=== PATIENT | female | born 1955 | race Caucasian/White ===

== ENCOUNTER 2020-04-25 09:00 | Observation (INO) | payer MEDICARE, OTHER, SELFPAY ==
[2020-04-25] VITALS (32 sets, daily range): BP systolic 126–181; BP diastolic 67–124; PULSE 60–150; RESP 8–24; TEMP 36.3–36.7; O2SAT 95–100; BMI 35.2
--- NOTE | 2020-04-25 | ECHO_ITS ---
Patient Info Name: Marcia Melgar Age: 64 years : 1955 Gender: Female Ht: 65 in Wt: 258 lbs BSA: 2.38 m2 BP: 144 / 108 mmHg Heart Rhythm: Atrial Fibrillation Technical Quality: Fair Exam Date: 04/25/2020 1:09 PM Exam Location: [facility] Patient Status: Inpatient Admit Date: 04/25/2020 Staff Ordering Physician: Giselle Chun MD [employer] Sales Consultant: Pedro Hickey RDCS Attending Provider: Fide Bryan MD Referring Physician: Lay VILLEDA; Exam Type: CA echo doppler color flow Study Info Indications I48.0 - Paroxysmal atrial fibrillation Complete two-dimensional, color flow and Doppler transthoracic echocardiogram is performed. History/Risk Factors pAfib; palpitations, HTN. Summary 1. Left ventricular chamber size and systolic function are normal with no regional wall motion abnormalities with an estimated ejection fraction of 65-70%. Moderate concentric left ventricular hypertrophy. Indeterminate diastolic function. 2. No pulmonary hypertension, estimated pulmonary arterial systolic pressure is 28 mmHg. 3. No significant valvular heart disease. 4. Atrial fibrillation. Left Ventricle Left ventricular chamber size and systolic function are normal with no regional wall motion abnormalities with an estimated ejection fraction of 65-70%. Moderate concentric left ventricular hypertrophy. Indeterminate diastolic function. Left ventricular chamber dimension is normal. Left ventricular systolic function is normal, estimated at Empty. There is moderate concentric increased left ventricular wall thickness. Left ventricular septal wall motion is normal. The left ventricular diastolic function is indeterminate. Right Ventricle Right ventricular chamber dimension is normal. Right ventricular systolic function is normal. Left Atria Left atrial chamber dimension is normal. Right Atria Right atrial chamber dimension is normal. Aortic Valve The aortic valve is trileaflet. There is no aortic valve sclerosis. There is no aortic valve stenosis. There is no aortic valve regurgitation. Pulmonic Valve The pulmonic valve is normal. There is no pulmonic valve stenosis. There is no pulmonic regurgitation. Mitral Valve The mitral valve has normal leaflets. There is no mitral valve stenosis. There is no mitral valve regurgitation. Tricuspid Valve The tricuspid valve leaflets are normal. There is no significant tricuspid valve stenosis. There is trace tricuspid valve regurgitation. No pulmonary hypertension, estimated pulmonary arterial systolic pressure is 28 mmHg. Pericardium/Pleural The pericardium appears normal. There is no pericardial effusion. Inferior Vena Cava Normal inferior vena cava with >50% collapse upon inspiration consistent with Empty right atrial pressure, 5 mmHg. Aorta The aortic root size at the sinus of Valsalva is normal. The prox ascending aorta size is normal. Left Ventricular Outflow Tract Name Value Normal LVOT 2D LVOT Diameter 2.1 cm LVOT Doppler LVOT Peak Gradient 6 mmHg LVOT Mean Gradient
--- NOTE | ~2020-04-25 | XR_ITS ---
EXAMINATION: XR chest 2V 04/25/2020 09:32 INDICATION: Chest pain and discomfort PROCEDURE: 2 view chest COMPARISON: 12/27/2013 FINDINGS: The lungs are clear. The cardiomediastinal silhouette is within normal limits. There are no pleural effusions. There is no pneumothorax suspected. There are bilateral shoulder arthroplasti es. IMPRESSION: 1: NO ACUTE CARDIOPULMONARY DISEASE. Reviewed, dictated and finalized at location A.
--- NOTE | 2020-04-25 09:05 | ECG_ITS ---
Measurements Intervals [place] Rate: 144 P: UT: 0 QRS: -42 QRSD: 106 T: 96 QT: 307 QTc: 475 Interpretive Statements ATRIAL FIBRILLATION WITH RAPID VENTRICULAR RESPONSE LEFT AXIS DEVIATION ST-T WAVE ABNORMALITY IN HIGH LATERAL LEADS- CONSIDER ISCHEMIA BASELINE ARTIFACT- II, III, AVR, V2 ABNORMAL ECG Electronically Signed On 04-25-2020 9:27:33 CDT by Saravanan Conti D.O.
--- NOTE | 2020-04-25 09:07 | ED.GENADULT ---
HPI - General Adult General Chief complaint: Nausea/Vomiting/Diarrhea Stated complaint: CHEST DISCOMFORT Time Seen by Provider: 04/25/20 09:06 Source: patient and EMS Mode of arrival: EMS Limitations: no limitations History of Present Illness HPI narrative: Patient is a 64-year-old female who presents for evaluation of palpitations. Patient reportedly experienced palpitation onset at 8 AM this morning, her smart watch alerted her that her heart rate was abnormally fast, the reading was atrial fibrillation, the patient called her primary care physician who referred her to our facility. Patient try to transfer herself, but became very symptomatic with palpitations, chest pain, nausea, vomited twice and called EMS who then transported the patient to our facility. Patient without history of arrhythmia, has seen a sales consultant residential manager in the past but does not follow with one regularly. Patient reports removing a tree from the ER yesterday, had some vigorous outdoor activity, and then drank alcohol last night. Related Data Home Medications Medication Instructions Recorded Confirmed alprazolam 0.5 mg tablet 0.5 mg PO DAILY 10/11/19 bupropion HCl 300 mg 24 hr tablet, 300 mg PO QAM 10/11/19 extended release epinephrine 0.3 mg/0.3 mL 0.3 mg IM ONCE 10/11/19 injection, auto-injector metoprolol succinate 50 mg capsule 50 mg PO DAILY 10/11/19 sprinkle, ext. release 24 hr Allergies Allergy/AdvReac Type Severity Reaction Status Date / Time methylphenidate Allergy Unknown irritabilit Verified 04/25/20 09:08 y Review of Systems Review of Systems: Narrative: CONSTITUTIONAL: Denies fever, chills, or sweats. EYES: Denies visual changes, redness, or discharge. ENT: Denies rhinorrhea, congestion, sore throat, or otalgia. CARDIOVASCULAR: Reports chest pain, palpitations RESPIRATORY: Denies cough, reports mild shortness of breath GASTROINTESTINAL: Denies abdominal pain, reports nausea and vomiting GENITOURINARY: Denies dysuria or hematuria. SKIN: Denies rash or itching. MUSCULOSKELETAL: Denies back pain, joint pain, or myalgia. NEUROLOGIC: Denies headache, numbness, or weakness. [facility] Past Medical History Medical History History of cardiac disorder Status post proximal row carpectomy of wrist (~2008) Surgical History Surgical History History of carpal tunnel release (~1998) History of reverse total replacement of shoulder joint History of shoulder replacement (~02/10/18) S/p total knee replacement, bilateral (~05/05/18) Social History Social History Smoking status: Never smoker Alcohol intake: current Exam Narrative: Exam Narrative: GENERAL: Awake, alert, conversant HEAD: Normocephalic, atraumatic. EYES: PERRLA and EOMI. ENT: Nares clear, no rhinorrhea or epistaxis. Mucous membranes moist. NECK: Supple. CHEST: No respiratory distress, breathing even and non labored HEART: Tachycardic rate, irregular rhythm ABDOMEN:Non distended, non tender EXTREMITIES: Normal range of motion. No edema. SKIN: Warm, dry, no rash. NEURO:No focal deficits. Alert and oriented x3 Course Vital Signs Vital signs: Vital Signs Temperature 36.6 C 04/25/20 09:04 Pulse Rate 149 H 04/25/20 09:04 Respiratory Rate 24 H 04/25/20 09:04 Blood Pressure 161/119 H 04/25/20 09:04 Pulse Oximetry 100 04/25/20 09:04 Temperature 36.6 C 04/25/20 09:04 Pulse Rate 113 H 04/25/20 09:45 Respiratory Rate 15 04/25/20 09:45 Blood Pressure 175/121 H 04/25/20 09:34 Pulse Oximetry 99 04/25/20 09:45 Medical Decision Making MDM Narrative Medical decision making narrative: Patient presented for evaluation of palpitations. Initially, thought we were within the onset of time where we could possibly cardiovert the patient, but then patient explained symptoms may have
[2020-04-25 09:33] LABS: Basophils Absolute Auto 0.1 K/mm3 (0.0-0.1); Basophils Percent Auto 0.6 % (0.2-1.2); Eosinophils Absolute Auto 0.4 K/mm3 (0-0.3); Eosinophils Percent Auto 2.3 % (0-4.4); Hematocrit 44.6 % (37.0-47.0); Hemoglobin 15.2 g/dL (12.0-15.0); Immature Granulocyte Absolute 0.07 K/mm3 (0.00-0.031); Immature Granulocyte Percent A 0.4 % (0-0.5); Lymphocytes Absolute Auto 2.51 K/mm3 (0.9-3.2); Lymphocytes Percent Auto 15.9 % (18.3-44.2); Mean Corpuscular HGB Conc 34.1 g/dl (32-36); Mean Corpuscular Hemoglobin 29.2 pg (26-34); Mean Corpuscular Volume 85.6 fl (80-100); Monocytes Absolute Auto 0.9 K/mm3 (0.1-0.6); Monocytes Percent Auto 5.6 % (2.6-8.5); Neutrophils Absolute Auto 11.9 K/mm3 (1.3-6.7); Neutrophils Percent Auto 75.2 % (45.5-73.1); Platelet Count Result 373 k/mm3 (150-375); Red Blood Count 5.21 M/mm3 (4.2-5.4); Red Cell Distribution Width 13.9 % (11.5-14.5); White Blood Count 15.8 K/mm3 (4.5-10.0)
[2020-04-25] MEDS: ONDANSETRON INJ 4 MG/2 ML VIAL IV PUSH ×2 (09:39→12:59)
[2020-04-25] MEDS: MORPHINE SULFATE 4 MG/ML INJ IV PUSH (09:39)
[2020-04-25] MEDS: SODIUM CHLORIDE 0.9% IV 1,000 ML 999 ML IV CONT (09:40)
[2020-04-25] MEDS: ASPIRIN 81 MG CHEWABLE TABLET 324 MG PO (09:40)
[2020-04-25 09:43] LABS: INR 0.9; Prothrombin Time 11.5 Seconds (11.1-14.7)
[2020-04-25 09:44] LABS: Partial Thromboplastin Time 27.1 SECONDS (22.3-36.8)
[2020-04-25 09:45] LABS: Blood Urea Nitrogen 12 mg/dL (7-17); Calcium 9.9 mg/dL (8.4-10.2); Carbon Dioxide 23 mmol/L (22-30); Chloride 105 mmol/L (98-107); Estimated CRCL calculation 77 ml/min; Estimated Glomerular Filt Rate > 60; Glucose 121 mg/dL (65-105); Potassium 3.6 mmol/L (3.4-5.0); Sodium 140 mmol/L (137-145)
[2020-04-25 09:54] LABS: NT Pro B Type Natriuretic Pept 232 PG/ML (5-100)
[2020-04-25 09:57] LABS: Troponin I 0.015 ng/mL (0.000-0.034)
[2020-04-25] MEDS: ENOXAPARIN 120 MG/0.8 ML SYRINGE SUB-Q (10:49)
--- NOTE | 2020-04-25 12:46 | ADMGEN ---
This patient, Marcia Melgar, was admitted to IMU Room 200-01 on 04-25-2020 at 1146. Patient/family oriented to hospital policies and general routines including ID bracelet, bed and alarms, visiting hours, pain management, procedures, bathroom and other care routines, personal items, smoking policy, room service/diet, and visiting hours. Valuables list has been completed. Information on how to activate the Rapid Response Team has been discussed. Patient/Family are encouraged to report perceived risks to care and to ask questions if they do not understand what they are told or what they should do.
[2020-04-25 13:04] LABS: Troponin I 0.042 ng/mL (0.000-0.034)
--- NOTE | 2020-04-25 15:39 | WPDCN ---
Assessment and Plan Assessment and plan (1) Atrial fibrillation with RVR: Code(s): I48.91 - Unspecified atrial fibrillation Status: Acute Assessment and Plan: The patient was admitted with AFib RVR in the setting of hypertension , sleep apnea and perhaps some excess of alcohol intake and activity/stress yesterday. She had some chest tightness and some mild ST depression laterally with a very minimal elevation of troponin, suggesting myocardial ischemia perhaps based on simply the AFib rate though she may have some underlying CAD as well. Echo showed normal systolic function and TSH was normal. Will increase Cardizem to: 10 mg per hour. Discussed anticoagulation with the patient. Her spouse takes Xarelto. Anticoagulation may be an issue as the patient relies on diclofenac for pain control. Consider changing to Celebrex. The patient accepted this suggestion. Will add a PPI also. Fortunately, the patient has converted to sinus rhythm after increasing the Cardizem drip. I will increase her metoprolol and discontinue the drip. Possible discharge tomorrow. Outpatient Lexiscan. (2) Essential hypertension: Code(s): I10 - Essential (primary) hypertension Status: Acute Assessment and Plan: High this admission, usually controlled, does have LVH. (3) Mixed hyperlipidemia: Code(s): E78.2 - Mixed hyperlipidemia Status: Acute Assessment and Plan: Takes a statin (4) TYRONE (obstructive sleep apnea): Code(s): G47.33 - Obstructive sleep apnea (adult) (pediatric) Status: Acute Assessment and Plan: Compliant with CPA (5) Elevated troponin: Code(s): R79.89 - Other specified abnormal findings of blood chemistry Status: Acute Assessment and Plan: Consistent with myocardial stress, no ACS. HPI Data of Consult Date/Time: 04/25/20 15:39 Requesting Physician: Fide Bryan MD Primary Care Provider: Davina Younger MD Consult Narrative Narrative: Date of service: 04/25/2020 Marcia Melgar is a 64 year old female Whom we were asked to see by the hospitalist for our advice and opinion regarding her new onset of atrial fibrillation, RVR, in consultation. Ms. Melgar had a rough day yesterday, over doing it by chopping down a tree, and taking her dog to the obediance class, her dog acting up, disciplining her dog, and then the apparently being kicked out of obediance class. She arrived home with very sore shoulders and in pain. She had 3 drinks and took some tizanidine. Later she developed nausea and vomiting without shortness of breath or palpitations. She went to bed but woke up again at 5:00 a.m. with nausea and vomiting. That resolved but returned later inthe morning. Around then she checked her Apple watch which showed that her heart rate was in the 130s to 150 and reported atrial fibrillation. As the morning went off on she also felt some pressure across her chest and fast heartbeats. She called ambulance and was found to be in atrial fibrillation RVR, heart rate 149 on admission with a blood pressure 161/119, and 175/121. She was started on a Cardizem drip at 5 milligrams/hour and is now feeling better though her heart rate is running 120-130 ppm. She has a history of hypertension and hyperlipidemia but no diabetes. She woke up violently ill 2 weeks ago with nausea and vomiting, but no chest pain or palpitations. No prior known history of atrial fibrillation, but she has suspected she may have it as her Apple watch occasionally shows an irregular heartbeat.. In 2013 she was hospitalized for atypical chest pain and had an 8 beat run of ventricular tachycardia so underwent cardiac catheterization by Dr. Evans which showed normal coronary arteries and a normal christ
[2020-04-25 16:30] LABS: Troponin I 0.045 ng/mL (0.000-0.034)
--- NOTE | 2020-04-25 16:53 | PM.IMHP ---
H&P: HPI History of Present Illness Chief complaint: a fib with rvr Narrative: Marcia Melgar is a 64 year old female very pleasant lady admitted with af with rvr.Pt states she did too much yesterday. Pt cut a tree down then took her dog for his first dog class. Pt felt very tired when she came back complained of chest discomfort. Pt drank 3 vodkas to help with the pain, but it did not go away. Pt had a i watch which read 155 irregular. pt called her MD this morning and was told to come straight to ED. Pt has history of CHD in the family and has history of HTN and hypercholesteroalemia. Other history include joint replacement and OA. Currently, pt is on a diltiazem drip at 5 at the moment. Troponin and EKG suggest mild ischemic stress. Continue to monitor in IMU. Review of Systems Review of Systems: All systems reviewed & are unremarkable except as noted in HPI and below Cardiovascular: Cardiovascular: Reports chest pain, Reports palpitations, Reports dyspnea and Reports dyspnea on exertion Respiratory: Respiratory: Denies change in phlegm color, Denies chest congestion, Denies cough and Denies wheezing Gastrointestinal: Gastrointestinal: Denies no additional gastrointestinal complaints Musculoskeletal: Musculoskeletal: Reports myalgias Comments: SP physical exertion cut down a tree Integumentary/Breasts: Skin/Breast: Denies system reviewed and no additional complaints, except as docu Neurologic: Denies system reviewed and no additional complaints, except as documented Psychiatric: Psychiatric: Denies no additional psychiatric complaints PMFSH Past Medical History Medical History Asthma Depression with anxiety sees a psychiatrist History of cardiac disorder TYRONE (obstructive sleep apnea) Rheumatic fever possible rheumatic fever as a teenager, no sequelae Status post proximal row carpectomy of wrist (~2008) Surgical History Surgical History H/O hand surgery has had 7 hand surgeries History of carpal tunnel release (~1998) History of reverse total replacement of shoulder joint History of shoulder replacement (~02/10/18) S/p total knee replacement, bilateral (~05/05/18) Family History Family History Father Family history of primary malignant neoplasm of liver Family history of cardiovascular disease Family history of lung cancer Emphysema lung Family history of congenital heart disease Hypertension Pneumonia cause of , age 57 Acute myocardial infarction had heart disease, patient is unsure of what type. Grandparent Diabetes mellitus Mother Skin cancer Hypertension Cerebrovascular accident Sibling Hypertension Social History Social History Social History: , is Angela. Takes care of her mother who lives next door, age 96. 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 release 24 hr atorvastatin 20 mg tablet 20 mg PO DAILY #90 tablet 12/07/19 04/25/20 Rx lisinopril 10 mg tablet 10 mg PO DAILY #90 tablet 12/07/19 04/25/20 Rx diclofenac sodium 5
[2020-04-25] MEDS: ALPRAZOLAM 0.5 MG TABLET PO (17:18)
[2020-04-25] MEDS: METOPROLOL TARTRATE 25 MG TABLET PO (20:23)
[2020-04-26] VITALS (8 sets, daily range): BP systolic 120–142; BP diastolic 63–86; PULSE 60–99; RESP 12–18; TEMP 36.3–36.6; O2SAT 97–100
[2020-04-26] MEDS: ALPRAZOLAM 0.5 MG TABLET PO (08:54)
[2020-04-26] MEDS: PANTOPRAZOLE SOD SESQUIHYDRATE 20 MG TAB PO (08:55)
[2020-04-26] MEDS: CELECOXIB 100 MG CAPSULE PO (08:55)
[2020-04-26] MEDS: METOPROLOL SUCCINATE EXT REL 100 MG TABCR PO (08:55)
[2020-04-26] MEDS: buPROPion HCL XL (24 HR) 150 MG TABCR 300 MG PO (08:55)
[2020-04-26] MEDS: lisinopriL 10 MG TABLET PO (08:55)
[2020-04-26] MEDS: ATORVASTATIN 20 MG TABLET PO (08:55)
--- NOTE | 2020-04-26 09:09 | ECG_ITS ---
Measurements Intervals [place] Rate: 62 P: 24 CO: 126 QRS: -47 QRSD: 112 T: -27 QT: 407 QTc: 414 Interpretive Statements SINUS RHYTHM LEFT ANTERIOR FASCICULAR BLOCK VOLTAGE CRITERIA FOR LVH BORDERLINE ST-T WAVE ABNORMALITY- ANT/INF LEADS BASELINE WANDER- V3 ABNORMAL ECG Electronically Signed On 04-26-2020 10:30:17 CDT by Saravanan Conti D.O.
--- NOTE | 2020-04-26 09:39 | PM.PNCARD ---
Progress Note: A&P Assessment and Plan (1) Atrial fibrillation with RVR: Code(s): I48.91 - Unspecified atrial fibrillation Status: Acute Assessment and Plan: Admitted with AFib RVR in the setting of hypertension , sleep apnea and perhaps some excess of alcohol intake and activity/stress. She had some chest tightness and some mild ST depression laterally with a very minimal elevation of troponin, suggesting myocardial ischemia perhaps based on simply the AFib rate though she may have some underlying CAD as well. Echo showed normal systolic function and TSH was normal. Converted to NSR. Chest tightness this morning has resolved. Xarelto 20 mg daily. Stop diclofenac. Celebrex 100 mg daily. Continue PPI. Outpatient Lexiscan has been arranged (2) Essential hypertension: Code(s): I10 - Essential (primary) hypertension Status: Acute Assessment and Plan: High this admission, usually controlled, does have LVH. (3) Mixed hyperlipidemia: Code(s): E78.2 - Mixed hyperlipidemia Status: Acute Assessment and Plan: Takes a statin (4) TYRONE (obstructive sleep apnea): Code(s): G47.33 - Obstructive sleep apnea (adult) (pediatric) Status: Acute Assessment and Plan: Compliant with CPAP (5) Elevated troponin: Code(s): R79.89 - Other specified abnormal findings of blood chemistry Status: Acute Assessment and Plan: Consistent with myocardial stress, no ACS. Additional Plan OK to discharge from a cardiac standpoint See discharge instructions for follow-up Plan discussed with Dr Carlitos Sharif 04/26/2020 Time Spent With Patient Time with patient: 15 - 25 minutes Subjective Date/time seen: 04/26/20 09:39 Interval history: Follow-up for: Atrial fibrillation-converted to normal sinus rhythm, elevated troponin Date of service: 04/26/2020 Subjective: Mild chest pressure. Denied shortness of breath or lightheadedness. Review of Systems Constitutional: Constitutional: Denies headache(s) and Denies weakness Eyes: Eyes: Denies blurry vision ENT: Reports Normal hearing present, Denies headache(s) and Denies epistaxis Cardiovascular: Cardiovascular: Reports chest pain (Mild pressure.), Denies pedal edema, Denies leg edema, Denies palpitations, Denies dyspnea and Denies dyspnea on exertion Respiratory: Respiratory: Denies chest congestion, Denies hemoptysis, Denies dyspnea and Denies dyspnea on exertion Gastrointestinal: Gastrointestinal: Denies abdominal pain, Denies hematochezia and Denies hematemesis Genitourinary: Genitourinary: Denies hematuria Musculoskeletal: Musculoskeletal: Reports back pain, Reports myalgias and Reports arthralgias Integumentary/Breasts: Skin/Breast: Denies rash Neurologic: Reports Normal hearing present, Denies headache(s) and Reports weakness Psychiatric: Psychiatric: Reports no additional psychiatric complaints Endocrine: Endocrine: Reports palpitations Hematologic/Lymphatic: Hematologic/Lymphatic: Denies easy bleeding and Denies easy bruising Exam Narrative: Exam Narrative: Sitting in chair. No distress. Alert and cooperative. Const: General: cooperative, comfortable and no acute distress Nutritional Appearance: obese Orientation/consciousness: patient oriented x3 HENMT: General nose exam: Normal nares present and no epistaxis Mouth: Yes moist mucous membranes Eyes: EOM: EOMs intact bilaterally Neck: Neck: supple Carotids: no bruits Resp: Effort & Inspection: normal respiratory effort Auscultation: clear to auscultation bilaterally Cardio: Rate: regular rate Rhythm: regular rhythm Peripheral pulses: Peripheral pulses 2+ throughout GI: Inspection: non-distended GI Palp: Yes Soft to palpation Skin: General skin exam: no
--- NOTE | 2020-04-26 11:44 | PM.DS ---
DS: Admitting Diagnosis Admitting Diagnosis Admitting Diagnosis: Unspecified atrial fibrillation DS: Discharge Diagnosis Discharge Diagnosis (1) Elevated troponin: Code(s): R79.89 - Other specified abnormal findings of blood chemistry Status: Acute Assessment and Plan: Pt will need outpatient stress test and follow up with cardiology. (2) TYRONE (obstructive sleep apnea): Code(s): G47.33 - Obstructive sleep apnea (adult) (pediatric) Status: Acute Assessment and Plan: CPAP at night to continue. (3) Atrial fibrillation with RVR: Code(s): I48.91 - Unspecified atrial fibrillation Status: Acute Assessment and Plan: Pt converted to NSR on Diltizem drip Echo showed normal systolic function and TSH was normal. Pt to continue on betablocker and xarelto on discharge. Adviced to cut back with her alcholol. (4) Major depressive disorder, recurrent, moderate: Code(s): F33.1 - Major depressive disorder, recurrent, moderate Status: Acute Assessment and Plan: Chronic continue home medications. (5) Mixed hyperlipidemia: Code(s): E78.2 - Mixed hyperlipidemia Status: Acute Assessment and Plan: Chronic continue home medications. (6) Essential hypertension: Code(s): I10 - Essential (primary) hypertension Status: Acute Assessment and Plan: Chronic continue home medications, Bp is 142/86. Lisinopril added for better Bp control. DS: Summary Time Spent with Patient Time attestation: Total time spent providing and/or coordinating discharge services:40 minutes on day of discharge Exam Const: General: other (Overweight) Nutritional Appearance: well nourished Neck: Neck: supple Chest: Chest palpation & inspection: normal inspection of the chest Resp: Effort & Inspection: normal respiratory effort Auscultation: clear to auscultation bilaterally Cardio: Jugular venous distension: no JVD Rhythm: regular rhythm Heart sounds: S1 normal heart sound present and S2 normal heart sound present GI: Inspection: normal to inspection Auscultation: normal bowel sounds Skin: General skin exam: normal color and dry skin Neuro: Cranial nerves: Yes CN's II-XII intact bilaterally and Yes Equal, round and reactive pupils present Cognition (Neuro): normal cognition Speech: normal speech Motor exam (neuro): 5/5 motor strength present throughout Extrem: General: normal to inspection Psych: Appearance: grossly normal Mental Status: mental status grossly normal DS: Data Data Completed and Pending Labs on day of discharge: Labs from last 24 hours 04/25/20 04/25/20 04/25/20 15:42 12:26 09:26 Troponin I 0.045 H* 0.042 H* D TSH (Reflex) 3.540 Discharge Plan Discharge Attending physician on discharge: Fide Bryan Consulting providers: Ashley Urbina Discharging Clinician: Fide Bryan Anticipated Discharge Date/Time: 04/26/20 11:44 Patient Disposition: Home, Self-Care Activity: other - see discharge instructions Diet: heart healthy Discharge Instructions: CARDIOLOGY DISCHARGE INSTRUCTIONS: ACTIVITY: No strenuous activity your exercise. Activity you do perform with precautions to avoid falls. Rise slowly from a seated or lying position. FOLLOW-UP: Follow-up with Dr. Younger 1-2 weeks Follow up with [facility], [place] office at [facility] [address] for your stress test on May 10, 2020 at 8:15 a.m.. Please arrive by 8:00 a.m. for your appointment. Bring photo ID and insurance card. See additional instruction sheet. with Yudy Santiago NP on May 23, 2020 at 10:30 a.m.. Please arrive by 10:15 a.m. for your appointment. Bring photo ID, insurance card and current medication list. with Dr Urbina on September 11, 2020 at 11:45 a.m.. Please arrive by 11:30 a.m. for your appointment. Bring photo ID, insurance card(s) and c
== END 2020-04-26 13:21 | disposition home or self-care (01) ==
LOC: ANHED 10:39 → ANHIMU 10:53
PROVIDERS: Admitting Provider Family Medicine; Emergency Provider Emergency Medicine; PCP Family Medicine; Visit Provider Family Medicine
DX: I48.91 Unspecified atrial fibrillation (principal); I10 Essential (primary) hypertension; E78.2 Mixed hyperlipidemia; G47.33 Obstructive sleep apnea (adult) (pediatric); R79.89 Other specified abnormal findings of blood chemistry; F33.1 Major depressive disorder, recurrent, moderate; R06.02 Shortness of breath; R11.2 Nausea with vomiting, unspecified; Z79.899 Other long term (current) drug therapy; Z96.619 Presence of unspecified artificial shoulder joint; Z96.653 Presence of artificial knee joint, bilateral
CPT/HCPCS: 36415; 71046; 80048; 83880; 84443; 84484; 85025; 85610; 85730; 93005; 93306; 96365; 96366; 96372; 96375; 96376; 99285; A9270; G0378; J1650; J2270; J2405; J7030

== ENCOUNTER 2020-05-16 00:16 | Outpatient (CLI) | payer MEDICARE, OTHER, SELFPAY ==
[2020-05-16 18:55] LABS: SARS-CoV-2 RNA PCR Negative
== END 2020-05-16 00:17 | disposition home or self-care (01) ==
LOC: ANHCOVIDDT 00:16
PROVIDERS: PCP Family Medicine; Visit Provider Internal Medicine Cardiovascular Disease
DX: Z01.818 Encounter for other preprocedural examination (principal); Z11.59 Encounter for screening for other viral diseases
CPT/HCPCS: 87635; C9803; U0003

== ENCOUNTER 2020-05-18 05:45 | Day surgery (SDC) | payer MEDICARE, OTHER, SELFPAY ==
[2020-05-17 16:07] VITALS: BMI 36.9
[2020-05-18] VITALS (8 sets, daily range): BP systolic 122–167; BP diastolic 66–93; PULSE 50–60; RESP 14–20; TEMP 36.2; O2SAT 98–100; BMI 37.0
--- NOTE | 2020-05-18 07:30 | SUR.PREOP ---
ARRIVES VIA WC TO [facility] 6 FROM OP SURGERY REGISTRATION FOR SCHEDULED LHC W/ DR. DE LA CRUZ. A&OX4, DENIES CP OR SOB ON ARRIVAL. ORIENTED TO ROOM, PLAN OF CARE, PROCEDURE. QUESTIONS ANSWERED. IV STARTED, LABS SENT, VS OBTAINED, CONSENT SIGNED, SKIN PREP COMPLETED, PULSES MARKED. WILL CONTINUE TO MONITOR.
[2020-05-18 08:12] LABS: Basophils Absolute Auto 0.1 K/mm3 (0.0-0.1); Basophils Percent Auto 0.9 % (0.2-1.2); Eosinophils Absolute Auto 0.3 K/mm3 (0-0.3); Eosinophils Percent Auto 3.9 % (0-4.4); Hematocrit 37.2 % (37.0-47.0); Hemoglobin 12.2 g/dL (12.0-15.0); Immature Granulocyte Absolute 0.02 K/mm3 (0.00-0.031); Immature Granulocyte Percent A 0.3 % (0-0.5); Lymphocytes Absolute Auto 1.61 K/mm3 (0.9-3.2); Lymphocytes Percent Auto 23.3 % (18.3-44.2); Mean Corpuscular HGB Conc 32.8 g/dl (32-36); Mean Corpuscular Hemoglobin 29.3 pg (26-34); Mean Corpuscular Volume 89.4 fl (80-100); Mean Platelet Volume 9.2 fl (7.4-10.4); Monocytes Absolute Auto 0.6 K/mm3 (0.1-0.6); Monocytes Percent Auto 8.1 % (2.6-8.5); Neutrophils Absolute Auto 4.4 K/mm3 (1.3-6.7); Neutrophils Percent Auto 63.5 % (45.5-73.1); Platelet Count Result 262 k/mm3 (150-375); Red Blood Count 4.16 M/mm3 (4.2-5.4); Red Cell Distribution Width 13.9 % (11.5-14.5); White Blood Count 6.9 K/mm3 (4.5-10.0)
[2020-05-18 08:21] LABS: Prothrombin Time 12.9 Seconds (11.1-14.7)
--- NOTE | 2020-05-18 08:23 | SUR.PREOP ---
DR. DE LA CRUZ TO BEDSIDE TO SEE PT.
[2020-05-18 08:25] LABS: Blood Urea Nitrogen 12 mg/dL (7-17); Calcium 8.9 mg/dL (8.4-10.2); Carbon Dioxide 26 mmol/L (22-30); Chloride 106 mmol/L (98-107); Estimated CRCL calculation 76 ml/min; Estimated Glomerular Filt Rate > 60; Glucose 95 mg/dL (65-105); Potassium 3.9 mmol/L (3.4-5.0); Sodium 138 mmol/L (137-145)
--- NOTE | 2020-05-18 08:38 | P.HPUP_ITS ---
History and Physical Update Update Date/Time: 05/18/20 08:38 History and Physical has been reviewed, including an updated exam of the patient. Since discharge the patient had some episodes of presumed atrial fibrillation. Also, she has exertional chest tightness and discomfort. Her str ess test showed a small fixed inferobasal defect with hypokinesis of the segment. In view of her ongoing anginal-type symptoms I recommended cardiac catheterization. Patient's last dose of Xarelto was Friday. Otherwise, There are NO changes in the patient's condition. Risks, benefits, and alternatives have been discussed and questions answered. Patient agrees to proceed with procedure.
--- NOTE | 2020-05-18 08:40 | WPDMODSED ---
Moderate Sedation Note-Pt Data Patient Data Diagnosis: Exertional chest discomfort Paroxysmal atrial fibrillation Abnormal stress test Present Complaint: Exertional chest discomfort Procedure to be performed/Plan: Conscious sedation Left heart catheterization Possible PCI Allergies Allergy/AdvReac Type Severity Reaction Status Date / Time methylphenidate Allergy Unknown irritabilit Verified 04/25/20 09:08 y Home Medications Medication Instructions Recorded Confirmed Type alprazolam 0.5 mg tablet 0.5 mg PO TID 10/11/19 05/17/20 History bupropion HCl 300 mg 24 hr tablet, 300 mg PO QAM 10/11/19 05/17/20 History extended release lisinopril 10 mg tablet 10 mg PO DAILY #90 tablet 12/07/19 05/17/20 Rx tizanidine 4 mg PO HS PRN 04/25/20 05/17/20 History metoprolol succinate 100 mg PO DAILY #30 tablet 04/26/20 05/17/20 Rx pantoprazole 20 mg PO QAM #30 tablet 04/26/20 05/17/20 Rx rivaroxaban [Xarelto] 20 mg PO DAILY@1700 #30 tablet 04/26/20 05/17/20 Rx celecoxib 100 mg capsule 200 mg PO DAILY #180 cap 05/03/20 05/17/20 Rx cholecalciferol (vitamin D3) 100 100 mcg PO DAILY 05/03/20 05/17/20 History mcg (4,000 unit) capsule qksjkixa-xad-rlgjq acid 0.4 1 tablet PO DAILY 05/03/20 05/17/20 History mg-lycopene 300 mcg-lutein 250 mcg tablet atorvastatin 40 mg PO DAILY 05/17/20 05/17/20 History Current Medications: Active Medications Sodium Chloride (Normal Saline Iv) 500 mls @ 100 mls/hr IV CONT .Q5H ISIDRO Sedation/Anesthesia: No previous sedation/anesthesia problems (including family history). [facility] Past Medical History Medical History (Updated 05/18/20 @ 08:41 by Ashley Urbina MD) Asthma Depression with anxiety sees a psychiatrist History of cardiac disorder TYRONE (obstructive sleep apnea) Paroxysmal atrial fibrillation Rheumatic fever possible rheumatic fever as a teenager, no sequelae Status post proximal row carpectomy of wrist (~2008) Surgical History Surgical History H/O hand surgery has had 7 hand surgeries History of carpal tunnel release (~1998) History of reverse total replacement of shoulder joint History of shoulder replacement (~02/10/18) S/p total knee replacement, bilateral (~05/05/18) Family History Family History Father Family history of primary malignant neoplasm of liver Family history of cardiovascular disease Family history of lung cancer Emphysema lung Family history of congenital heart disease Hypertension Pneumonia cause of , age 55 Acute myocardial infarction had heart disease, patient is unsure of what type. Grandparent Diabetes mellitus Mother Skin cancer Hypertension Cerebrovascular accident Sibling Hypertension Social History Social History Social History: , is Angela. Takes care of her mother who lives next door, age 96. 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 [employer] Gender identity (if verbalized by the patient): Female Spiritual care concerns: No Mod Sed Physical Exam Physical Exam Pre Procedural Exam: Normal: Appearance, Eyes, Ears, Nose, Neck, Throat, Airway, Lungs, Heart Size, Heart Rate, Heart Rhythm, Neuro Exam, Abdomen, Liver, Extremities (Decreased posterior tibial pulses particularly on the right lower extremity, no femoral bruits) and Skin Hours since solid foods: 12 Hours since liquid intake: 12 Internal Medicine - PN: Obj Da Meds/Results Medications: Active Medications Generic Name Dose Route Start Last Admin Trade Name Freq PRN Reason Stop Dose Admin Sodium Chlorid
--- NOTE | 2020-05-18 10:02 | WPDCARDPROC ---
Cardiac Cath Procedure Note Date of procedure:: 05/18/20 Performing physician:: Ashley Urbina MD Indication:: Exertional chest pressure, stress test (fixed inferior defect with inferior wall hypokinesis ) Brief clinical history:: 65-year-old female with recent diagnosis of paroxysmal atrial fibrillation. She complains of exertional chest pressure. Stress test showed a fixed inferior defect with inferior wall hypokinesis. I have recommended cardiac catheterization to evaluate for underlying coronary disease for symptom management also to see if she has ischemic disease that would preclude the use of certain antiarrhythmics with treatment of her AFib. Procedure Procedure note:: Procedure: 1. Conscious sedation 2. Left heart catheterization 3. Selective Coronary angiography 4. Left ventriculography 5. Angiography of the right common femoral artery Site: Right femoral artery Catheters: 5 Bangladeshi arterial sheath, 5 Bangladeshi 4 cm right and left Renetta catheters, 5 Bangladeshi pigtail catheter Conscious sedation: The patient has no known prior history of adverse affects of conscious sedation. Oropharynx was clear. The patient is deemed a good candidate for conscious sedation. Conscious sedation began at: 0938 Conscious sedation ended at: 0953 Total conscious sedation time: 25 minutes Medications: Versed 1 mg, fentanyl 50 mcg IV The patient had continuous hemodynamic monitoring, and was also continuously monitored by: The patient tolerated conscious sedation well. Detailed procedure: After informed consent the patient brought to the manager cardiac cath and the right femoral area was prepped and draped in the usual fashion. After conscious sedation and local anesthesia the right femoral artery was punctured and cannulated with the arterial sheath. Selective Coronary angiography was performed with the coronary catheters in multiple projections. These were withdrawn. The pigtail catheter was advanced into the central circulation and left ventricle for pressure measurements and left ventriculography which was performed in the CORMIER projection. Of note, the patient had frequent ventricular ectopy while the pigtail was in the left ventrical. This was withdrawn. Angiography of the right common femoral arteries performed which showed this was patent, free of disease, and the sheath was in suitable position for a vascular closure device. Angio-Seal was applied. Then the arterial sheath was removed and hemostasis was obtained using local pressure. The patient tolerated the procedure well with no complications. Estimated blood loss was negligible. Findings:: Pressures: Left ventricular 140/18 mmhg Aortia: 150/77 mmHg Left coronary artery: The left main, Left anterior descending and circumflex vessels were widely patent and free of disease. Right coronary artery: The right coronary artery was dominant and free of disease Left ventriculogram: Normal left ventricular systolic function, no mitral regurgitation, estimated ejection fraction greater than 70% Right common femoral artery: Patent and free of disease. Conclusion:: Normal coronary arteries Normal left ventricular systolic function, EF greater than 70% Bradycardia with heart rates generally in the upper 40's Mildly elevated LVEDP suggesting a degree of diastolic dysfunction. Recommendation: Will place a 30 day monitor on the patient to estimate her AFib burden and make sure her symptoms correlate with atrial fibrillation and consider the addition of an antiarrhythmic such as propafenone or flecainide.
== END 2020-05-18 14:40 | disposition home or self-care (01) ==
PROVIDERS: PCP Family Medicine; Visit Provider Internal Medicine Cardiovascular Disease
PROC: 4A023N7 Measurement of Cardiac Sampling and Pressure, Left Heart, Percutaneous Approach (ICD-10-PCS; CPT 93452; principal; 2020-05-18 09:00)
DX: R07.89 Other chest pain (principal); R94.39 Abnormal result of other cardiovascular function study; I48.0 Paroxysmal atrial fibrillation
CPT/HCPCS: 36415; 80048; 85025; 85610; 93458; C1760; C1887; C1894; G0269; J1644; J2250; J3010; J7040

== ENCOUNTER 2020-08-30 11:01 | Outpatient (NON) | payer MEDICARE, OTHER, SELFPAY ==
[2020-08-30 23:09] LABS: SARS-CoV-2 RNA PCR Negative
== END 2020-08-30 11:02 ==
PROVIDERS: PCP Family Medicine; Visit Provider Family Medicine
DX: Z20.828 Contact with and (suspected) exposure to other viral communicable diseases (principal)
CPT/HCPCS: 87635; C9803; U0003

== ENCOUNTER 2020-12-07 08:30 | Outpatient (CLI) | payer MEDICARE, OTHER, SELFPAY ==
--- NOTE | ~2020-12-07 | MR_ITS ---
EXAMINATION: MR lumbar spine wo [facility] EXAM DATE: 12/07/2020 10:02 INDICATION: Spinal stenosis, lumbosacral region. TECHNIQUE: Multi-sequential, multiplanar MR images of the lumbar spine were obtained without contrast . Sagittal T1, T2, T2 fat saturation images. Axial T2 weighted images. Comparison is made to prior examination from 02/08/2015. FINDINGS: There is moderate disc disease L1-L4, moderate to severe at L5-S1. There is 2 mm retrolisth esis L2 on L3, 3 mm retrolisthesis L3 on L4 and L5 on S1. Mild diffuse loss of vertebral body heights . Mild to moderate lumbar dextroscoliosis. The conus medullaris terminates at the L1/2 level and has normal signal intensity and morphology. Paraspinal soft tissue is unremarkable. There is moderate disc disease at T10-11 and T11-12, moderate right neural foraminal stenosis at thes e 2 levels. Level by level evaluation: T12-L1: There is a mild diffuse disc bulge. Facet arthropathy: Mild to moderate bilateral. Neural foraminal stenosis: Mild right. Central canal stenosis: Mild. L1-L2: There is a mild to moderate diffuse disc bulge. Facet arthropathy: Mild to moderate. Neural foraminal stenosis: Mild to moderate left, mild right. Central canal stenosis: Mild to moderate. L2-L3: There is a mild to moderate diffuse disc bulge. Facet arthropathy: Mild to moderate. Neural foraminal stenosis: Mild to moderate left, mild right. Central canal stenosis: Mild to moderate. L3-L4: There is a moderate diffuse disc bulge. Facet arthropathy: Moderate. Neural foraminal stenosis: Moderate left, mild to moderate right. Central canal stenosis: Moderate. L4-L5: There is a moderate diffuse disc bulge. Facet arthropathy: Moderate to severe. Neural foraminal stenosis: Moderate bilateral. Central canal stenosis: Moderate to severe. L5-S1: There is a moderate diffuse disc bulge. Facet arthropathy: Mild to moderate. Neural foraminal stenosis: Moderate to severe right, moderate left. Central canal stenosis: Moderate. Mild progression in these degenerative changes compared to 2014. IMPRESSION: 1. L5-S1 moderate to severe central canal stenosis. 2. Advanced spondylosis as above. Reviewed, dictated and finalized at location B. HER HELPER
== END 2020-12-07 08:31 | disposition home or self-care (01) ==
PROVIDERS: PCP Family Medicine; Visit Provider Physical Medicine & Rehabilitation Pain Medicine
DX: M48.07 Spinal stenosis, lumbosacral region (principal); M47.896 Other spondylosis, lumbar region
CPT/HCPCS: 72148

== ENCOUNTER 2021-05-03 12:54 | Outpatient (CLI) | payer MEDICARE, OTHER, SELFPAY ==
--- NOTE | ~2021-05-03 | XR_ITS ---
EXAMINATION: XR shoulder RT min 2V DATE: 05/03/2021 13:10 INDICATION: Right shoulder pain. TECHNIQUE: 4 views of right shoulder were obtained. COMPARISON: Right shoulder radiographs 07/09/2018 FINDINGS: There is a reverse ijwy-emz-mzthvo total right shoulder arthroplasty in near-anatomic align ment. No new periprosthetic lucency to suggest loosening or infection. No acute fracture. There is mi ld osteoarthritis of the acromioclavicular joint. IMPRESSION: 1. Total right shoulder arthroplasty in near-anatomic alignment. 2. Mild osteoarthritis of acromioclavicular joint. Reviewed, dictated and finalized at location A.
== END 2021-05-03 12:55 | disposition home or self-care (01) ==
LOC: ANHIMG 12:57
PROVIDERS: PCP Family Medicine; Visit Provider Physical Medicine & Rehabilitation Pain Medicine
DX: M19.011 Primary osteoarthritis, right shoulder (principal)
CPT/HCPCS: 73030

== ENCOUNTER 2021-07-16 10:31 | Outpatient (CLI) | payer MEDICARE, OTHER, SELFPAY ==
[2021-07-16 11:23] LABS: CRP < 0.5 mg/dL (<1.0)
[2021-07-16 12:02] LABS: Erythrocyte Sedimentation Rate 21 mm/hr (0-20)
== END 2021-07-16 10:32 | disposition home or self-care (01) ==
PROVIDERS: PCP Family Medicine; Visit Provider Orthopaedic Surgery
DX: Z96.611 Presence of right artificial shoulder joint (principal)
CPT/HCPCS: 36415; 85652; 86140

== ENCOUNTER 2021-10-22 16:11 | Outpatient (CLI) | payer MEDICARE, OTHER, SELFPAY ==
--- NOTE | ~2021-10-22 | XR_ITS ---
EXAMINATION: XR wrist RT min 3V DATE: 10/22/2021 16:42 INDICATION: Osteoarthritis of right hand first digit. TECHNIQUE: 4 views of right wrist were obtained. COMPARISON: None. FINDINGS: There is mild widening of scapholunate joint. No fracture. There is mild osteoarthritis of distal radioulnar joint and severe osteoarthritis of triscaphe joint and first carpometacarpal joint. There is moderate osteoarthritis of first metacarpophalangeal joint and severe osteoarthritis of man y of the interphalangeal joints. There is a punctate loose body dorsal to the carpus. IMPRESSION: 1. Polyarticular osteoarthritis. 2. Scapholunate dissociation. Reviewed, dictated and finalized at location A. 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
== END 2021-10-22 16:12 | disposition home or self-care (01) ==
LOC: ANHIMG 16:21
PROVIDERS: PCP Family Medicine; Visit Provider Plastic Surgery
DX: M19.031 Primary osteoarthritis, right wrist (principal)
CPT/HCPCS: 73110

== ENCOUNTER 2021-12-18 08:42 | Outpatient (CLI) | payer MEDICARE, OTHER, SELFPAY ==
--- NOTE | 2021-12-18 11:00 | NEURO_ITS ---
Impression: # Complains of numbness of right hand. # Evolving right Carpal Tunnel Syndrome. # No ulnar neuropathy. # Normal needle/EMG exam. Nerve Conduction Studies Anti Sensory Summary Table Stim Site NR Peak (ms) P-T Amp (?V) Site1 Site2 Delta-P (ms) Dist (cm) Ethan (m/s) Right Median Anti Sensory (2-3nd Digit) Wrist 3.9 33.4 Wrist 2-3nd Digit 3.9 14.0 36 Wrist 3.6 35.6 Wrist 2-3nd Digit 3.9 14.0 36 Right Radial Anti Sensory (Base 1st Digit) Wrist 2.8 7.8 Wrist Base 1st Digit 2.8 0.0 Right Ulnar Anti Sensory (5th Digit) Wrist 2.4 37.2 Wrist 5th Digit 2.4 14.0 58 Motor Summary Table Stim Site NR Onset (ms) O-P Amp (mV) Site1 Site2 Delta-0 (ms) Dist (cm) Ethan (m/s) Right Median Motor (Abd Poll Brev) Wrist 3.8 2.2 Elbow Wrist 5.3 27.0 51 Elbow 9.1 1.9 Right Ulnar Motor (Abd Dig Minimi) Wrist 2.9 5.5 A Elbow Wrist 5.0 29.0 58 A Elbow 7.9 4.0 F Wave Studies NR F-Lat (ms) L-R F-Lat (ms) Right Median (Mrkrs) (Abd Poll Brev) 29.92 Right Ulnar (Mrkrs) (Abd Dig Min) 28.76 EMG Side Muscle Nerve Root Ins Act Fibs Amp Dur Recrt Comment Right 1stDorInt Ulnar C8-T1 Nml Nml Nml Nml Nml Right Ext Indicis Radial (Post Int) C7-8 Nml Nml Nml Nml Nml Right Ext Digitorum Radial (Post Int) C7-8 Nml Nml Nml Nml Nml Right BrachioRad Radial C5-6 Nml Nml Nml Nml Nml Right PronatorTeres Median C6-7 Nml Nml Nml Nml Nml Right Abd Poll Brev Median C8-T1 Nml Nml Nml Nml Nml Right ABD Dig Min Ulnar C8-T1 Nml Nml Nml Nml Nml Right Abd Poll Long Radial (Post Int) C7-8 Nml Nml Nml Nml Nml MTDD
== END 2021-12-18 08:43 | disposition home or self-care (01) ==
PROVIDERS: PCP Family Medicine; Visit Provider Plastic Surgery
DX: R20.2 Paresthesia of skin (principal); G56.01 Carpal tunnel syndrome, right upper limb
CPT/HCPCS: 95886; 95909

== ENCOUNTER 2022-03-08 14:01 | Outpatient (CLI) | payer MEDICARE, OTHER, SELFPAY ==
--- NOTE | ~2022-03-08 | MM_ITS ---
EXAMINATION: MM screening [place] BI w dolly HISTORY: Screening TECHNIQUE: Craniocaudal and mediolateral oblique 3-D tomosynthesis images were obtained and synthetic 2-D images were generated. CAD analysis was submitted and interpreted. COMPARISON: Comparison to multiple prior studies sequentially, with oldest reviewed study dated 12/11. BREAST PARENCHYMAL COMPOSITION: Breast composed of scattered areas of fibroglandular density FINDINGS: There is no evidence of suspicious mass, calcification, or architectural distortion to sugg est malignancy in either breast. There has been no suspicious interval change. IMPRESSION: 1. No mammographic evidence of malignancy. 2. Recommend routine screening mammography in one year. BI-RADS Category 1: Negative Reviewed, dictated and finalized at location A.
--- NOTE | ~2022-03-08 | DEXA_ITS ---
Bone Density Report Name: RADHA LUONG Age: 66 Sex: Female Ethnicity: White Date of : 1955 Indication: postmenopausal; screening for osteoporosis; height loss; asthma or emphysema; Referring Provider: JUDITH WHITE Study: Bone densitometry was performed. Exam Date: March 08, 2022 Accession number: [id number] Bone Density: Region BMD T-score Z-score Classification AP Spine(L1, L2) 1.193 1.9 3.8 Normal Femoral Neck (Left) 0.856 0.1 1.8 Normal Total Hip (Left) 0.980 0.3 1.7 Normal Femoral Neck (Right) 0.843 -0.1 1.7 Normal Total Hip (Right) 0.947 0.0 1.5 Normal Total Hip Mean 0.964 0.2 1.6 Normal World Health Organization criteria for BMD impression classify patients as: Normal (T-score at or above -1.0), Osteopenia (T-score between -1.0 and -2.5), or Osteoporosis (T-score at or below -2.5). 10-year Fracture Risk: FRAX not reported because: All T-scores for Spine Total, Hip Total, Femoral Neck at or above -1.0 Clinical Information Provided by Patient: Has used the following medications: Vitamin D Has the following medical conditions: Asthma or Emphysema Patient maximum height was 64 Menopause Age: 48 Drinks caffeinated beverages Onset of menses at age 10 Number of children 0 Impression: The patient has normal bone mass. Discussion: BONE DENSITY IS ABOVE THE MINIMUM DESIRABLE LEVEL AT ALL SKELETAL SITES TESTED. This patient?s bone mineral density is above the minimum desirable level (T-score -1.0 or better) at all sites measured. The patient should follow a healthful lifestyle (good nutrition with adequate calcium and vitamin D, and appropriate weight-bearing exercise). Follow-Up: Consider repeating this study in 5 years or sooner if there is some new clinical indication. Reported by: BIRGIT on 03/12/2022 7:04:00 AM. Reviewed, dictated and finalized at location AValentino DALTON
== END 2022-03-08 14:02 | disposition home or self-care (01) ==
LOC: ANHIMG 14:02
PROVIDERS: PCP Family Medicine; Visit Provider Family Medicine
DX: Z12.31 Encounter for screening mammogram for malignant neoplasm of breast (principal); Z78.0 Asymptomatic menopausal state
CPT/HCPCS: 77063; 77067; 77080

== ENCOUNTER 2022-09-17 11:17 | Outpatient (CLI) | payer MEDICARE, OTHER, SELFPAY ==
[2022-09-17 20:07] LABS: Erythrocyte Sedimentation Rate 15 mm/hr (0-20)
[2022-09-17 20:15] LABS: Uric Acid 3.2 mg/dL (2.5-7.5)
[2022-09-17 20:17] LABS: Rheumatoid Factor < 8.6 IU/ML (<12)
[2022-09-19 20:23] LABS: ANA Cascade Screen Negative (Negative)
== END 2022-09-17 11:18 | disposition home or self-care (01) ==
PROVIDERS: PCP Family Medicine; Visit Provider Family Medicine
DX: M19.90 Unspecified osteoarthritis, unspecified site (principal)
CPT/HCPCS: 36415; 73130; 84550; 85652; 86038; 86430

== ENCOUNTER → 2022-09-17 11:38 | Outpatient (CLI) | payer MEDICARE, OTHER, SELFPAY ==
--- NOTE | ~2022-09-17 | XR_ITS ---
XR hand BI arthritis min 3V 09/17/2022 11:57 Indication: Osteoarthritis Procedure: 3 views of each hand Comparison: 04/12/2014 Findings: Interval resection of the left scaphoid. There is severe bilateral polyarticular osteoarthr itis involving the interphalangeal joints, first MCP and radiocarpal joints. There is moderate osteoa rthritis of the right triscaphe joint. Impression: 1: Severe polyarticular osteoarthritis of the hands. 2: Interval resection of the left scaphoid. Reviewed, dictated and finalized at location B. Impression: 1: Severe polyarticular osteoarthritis of the hands. 2: Interval resection of the left scaphoid.
== END ==
PROVIDERS: PCP Family Medicine; Visit Provider Family Medicine
DX: M19.041 Primary osteoarthritis, right hand (principal); M19.042 Primary osteoarthritis, left hand
CPT/HCPCS: 73130

== ENCOUNTER 2022-10-01 20:55 | Inpatient (IN) | payer MEDICARE, OTHER, SELFPAY ==
[2022-10-01] VITALS (23 sets, daily range): BP systolic 129–167; BP diastolic 62–88; PULSE 67–81; RESP 12–32; TEMP 36.8; O2SAT 97–100
--- NOTE | ~2022-10-01 | XR_ITS ---
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 RESULT: Lines, tubes, and devices: Incompletely visualized bilateral shoulder arthroplasties. Lungs and pleura: Clear. Cardiomediastinal silhouette: Stable. Other: No acute osseous or upper abdominal finding. IMPRESSION: No acute cardiopulmonary process. Reviewed, dictated and finalized at location K. ER ASSEMBLER
--- NOTE | ~2022-10-01 | CT_ITS ---
EXAMINATION: CT abdomen pelvis w con DATE: 10/02/2022 03:41 INDICATION: Nausea. Epigastric abdominal pain. TECHNIQUE: Computed tomography (CT) of the abdomen and pelvis was performed with 100 mL Omnipaque 350 intravenous contrast. Automated exposure control and iterative reconstruction technique were employe d. The dose-length product was 975.73 mGy-cm. COMPARISON: Chest CT 12/27/2013 FINDINGS: The visualized portions of the lung bases demonstrate mild atelectasis. No pleural effusion . Cardiomegaly is noted. No pericardial effusion. There is a small sliding hiatal hernia. There is a gallstone in the gallbladder, which is normal in size. The liver, spleen, pancreas, and adrenal gland s are normal. There are cysts in the kidneys measuring up to 2.0 cm on the left. There is diverticulo sis of the colon without evidence of diverticulitis. The appendix is normal. There are no pathologica lly enlarged lymph nodes. There is no free intraperitoneal fluid. There is lumbar dextroscoliosis. Th ere is severe thoracolumbar spondylosis. IMPRESSION: 1. Small sliding hiatal hernia. 2. Cholelithiasis. Reviewed, dictated and finalized at location A. PER ASSEMBLER
--- NOTE | ~2022-10-01 | US_ITS ---
EXAMINATION: US right upper quadrant DATE: 10/02/2022 13:16 INDICATION: Nausea TECHNIQUE: Multiple grayscale and Doppler ultrasound images of the abdomen were obtained. COMPARISON: CT from today FINDINGS: Bowel gas obscures visualization of the pancreas. The visualized portions of the pancreas a re unremarkable. The liver is normal with normal echogenicity and echotexture. No surface nodularity. Normal hepatopetal flow in the main portal vein. The gallbladder is normal with no abnormal wall thi ckening, pericholecystic fluid or stones. The normal common bile duct measures 3 mm. There was no son ographic Dai sign. IMPRESSION: 1. Normal sonographic study of the gallbladder. Reviewed, dictated and finalized at location B. R
--- NOTE | 2022-10-01 21:06 | ECG_ITS ---
Measurements Intervals [place] Rate: 72 P: 34 ND: 154 QRS: -42 QRSD: 108 T: -25 QT: 414 QTc: 454 Interpretive Statements SINUS RHYTHM LEFT AXIS DEVIATION INTRAVENTRICULAR CONDUCTION DELAY VOLTAGE CRITERIA FOR LVH BORDERLINE ST-T WAVE ABNORMALITY- INFERIOR LEADS BASELINE ARTIFACT- I, II, AVR, V1 BORDERLINE ECG COMPARED TO ECG 04/26/2020 10:25:44 NO SIGNIFICANT CHANGES Electronically Signed On 10-02-2022 6:40:35 PSYCHIATRIC SECRETARY by Saravanan Conti D.O.
[2022-10-01 21:29] LABS: Basophils Absolute Auto 0.1 K/mm3 (0.0-0.1); Basophils Percent Auto 0.6 % (0.2-1.2); Eosinophils Absolute Auto 0.3 K/mm3 (0-0.3); Eosinophils Percent Auto 2.3 % (0-4.4); Hematocrit 39.6 % (37.0-47.0); Immature Granulocyte Absolute 0.04 K/mm3 (0.00-0.031); Immature Granulocyte Percent A 0.4 % (0-0.5); Lymphocytes Absolute Auto 2.27 K/mm3 (0.9-3.2); Lymphocytes Percent Auto 20.6 % (18.3-44.2); Mean Corpuscular HGB Conc 32.8 g/dl (32-36); Mean Corpuscular Hemoglobin 29.3 pg (26-34); Mean Corpuscular Volume 89.4 fl (80-100); Mean Platelet Volume 9.3 fl (7.4-10.4); Monocytes Absolute Auto 0.9 K/mm3 (0.1-0.6); Monocytes Percent Auto 7.8 % (2.6-8.5); Neutrophils Absolute Auto 7.5 K/mm3 (1.3-6.7); Neutrophils Percent Auto 68.3 % (45.5-73.1); Platelet Count Result 304 k/mm3 (150-375); Red Blood Count 4.43 M/mm3 (4.2-5.4); Red Cell Distribution Width 13.2 % (11.5-14.5)
[2022-10-01 21:38] LABS: INR 1.1; Prothrombin Time 13.6 Seconds (11.1-14.7)
[2022-10-01 21:39] LABS: Anion Gap 14 mmol/L (8-16); Blood Urea Nitrogen 13 mg/dL (7-17); Calcium 9.4 mg/dL (8.4-10.2); Carbon Dioxide 23 mmol/L (22-30); Chloride 103 mmol/L (98-107); Estimated Glomerular Filt Rate > 60; Glucose 95 mg/dL (65-110); Partial Thromboplastin Time 30.1 SECONDS (22.3-36.8); Potassium 3.2 mmol/L (3.4-5.0); Sodium 140 mmol/L (137-145)
[2022-10-01 21:51] LABS: Troponin I < 0.012 ng/mL (0.000-0.034)
[2022-10-02] VITALS (24 sets, daily range): BP systolic 141–189; BP diastolic 74–109; PULSE 65–82; RESP 12–26; TEMP 36.1–37; O2SAT 90–100; BMI 37.3
--- NOTE | 2022-10-02 01:23 | ED.ARRPALP ---
HPI - Arrhythmia/Palpitations General Chief Complaint: Arrhythmia/Palpitations Stated Complaint: PALPITATIONS Time Seen by Provider: 10/01/22 20:58 History of Present Illness HPI narrative: Patient is a 67-year-old female who presents ER with concerns of cardiac issue. 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 She felt like her heart was going fast but she does not believe she is having chest pain. She has history of atrial fibrillation. Symptoms last about 5 minutes and resolve on their own. No fevers or chills or sweats. No longer has nausea. Abdomen does not hurt. Related Data Home Medications Medication Instructions Recorded Confirmed metoprolol succinate 100 mg 100 mg PO DAILY 05/14/22 10/02/22 tablet,extended release 24 hr atorvastatin 40 mg tablet 40 mg PO DAILY 09/17/22 10/02/22 cholecalciferol (vitamin D3) 50 50 mcg PO DAILY 09/17/22 10/02/22 mcg (2,000 unit) capsule celecoxib 200 mg capsule 200 mg PO DAILY 10/02/22 10/02/22 lisinopril 10 mg tablet 10 mg PO DAILY 10/02/22 10/02/22 pantoprazole 20 mg tablet,delayed 20 mg PO DAILY 10/02/22 10/02/22 release Allergies Allergy/AdvReac Type Severity Reaction Status Date / Time No Known Allergies Allergy Verified 09/17/22 10:17 Review of Systems Review of Systems: All systems reviewed & are unremarkable except as noted in HPI and below Constitutional: Constitutional: Denies chills, Denies fatigue and Denies fever(s) Comments: Diaphoresis ENT: Denies nasal congestion and Denies sore throat Cardiovascular: Cardiovascular: Denies chest pain, Reports rapid heart rate and Denies radiating jaw, neck or arm pain Respiratory: Respiratory: Denies cough, Denies dyspnea and Denies wheezing Gastrointestinal: Gastrointestinal: Denies abdominal pain, Denies diarrhea, Reports nausea and Denies vomiting Genitourinary: Genitourinary: Denies nocturia and Denies dysuria Integumentary/Breasts: Skin/Breast: Denies pruritus, Reports erythema and Reports rash PMFSH Past Medical History Medical History Asthma Benign and innocent cardiac murmurs echocardiogram 6.2.20 normal valves Elevated troponin History of cardiac disorder Old myocardial infarction TYRONE (obstructive sleep apnea) 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 Rheumatic fever possible rheumatic fever as a teenager, no sequelae Status post proximal row carpectomy of wrist (~2008) Surgical History Surgical History H/O hand surgery has had 7 hand surgeries History of cardiac cath 6.24.20 normal coronaries/ sl diastolic dysfunction History of carpal tunnel release (~1998) History of reverse total replacement of shoulder joint History of shoulder replacement (~02/10/18) Presence of left artificial knee joint Presence of left artificial shoulder joint Presence of right artificial knee joint (12/08/17) Presence of right artificial shoulder joint S/p total knee replacement, bilateral (~05/05/18) Family History Family History Father Family history of primary malignant neoplasm of liver Family history of cardiovascular disease Family history of lung cancer Emphysema lung Family history of congenital heart disease Hypertension Pneumonia cause of , age 55 Acute myocardial infarction had heart disease, patient is unsure of what type. Grandparent Diabetes mellitus Mother Skin cancer Hypertension Cerebrovascular accident Sibling Hypertension Social History Social History (Updated 09/17/22 @ 10:21 by Yael Armendariz) Social History: , is Angela. Takes care of her mother who lives next door, age 96. 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 Caffeine- c
[2022-10-02 01:24] LABS: Troponin I 0.031 ng/mL (0.000-0.034)
[2022-10-02] MEDS: ONDANSETRON INJ 4 MG/2 ML VIAL IV PUSH ×3 (02:01→20:51)
--- NOTE | 2022-10-02 02:01 | PC.NURSE ---
zofran given for nausea and emesis x 1
--- NOTE | 2022-10-02 02:03 | ECG_ITS ---
Measurements Intervals [place] Rate: 63 P: 51 [place]: 156 QRS: -42 QRSD: 110 T: -28 QT: 436 QTc: 450 Interpretive Statements SINUS RHYTHM LEFT AXIS DEVIATION DELAYED PRECORDIAL R/S TRANSITION VOLTAGE CRITERIA FOR LVH ST-T WAVE ABNORMALITY IN INFERIOR LEADS- CONSIDER ISCHEMIA BASELINE ARTIFACT- I, II, AVR, V1 ABNORMAL ECG COMPARED TO ECG 10/01/2022 21:08:32 ST-T WAVE ABNORMALITY IN INFERIOR LEADS- CONSIDER ISCHEMIA NOW PRESENT Electronically Signed On 10-02-2022 6:43:47 AQUATICS SPECIALIST by Saravanan Conti D.O.
--- NOTE | 2022-10-02 02:10 | PC.NURSE ---
EKG repeated and given to ERP
--- NOTE | 2022-10-02 02:46 | PC.NURSE ---
nausea has resolved
--- NOTE | 2022-10-02 03:05 | PM.IMHP ---
H&P: HPI History of Present Illness Date/Time: 10/02/22 03:05 Chief Complaint: nausea and vomiting Narrative: This is a 67-year-old female with past medical history significant for hypertension, GERD, atrial fibrillation rate controlled anticoagulated, obesity, obstructive sleep apnea, osteoarthritis of both shoulders status post bilateral arthroplasty, [place]. patient has been working at the [employer] and at the end of the day she had an episode of diaphoresis with nausea vomiting epigastric abdominal pain lightheadedness presented to our emergency room for evaluation by ambulance after her coworkers called EMS. patient has been in her usual state of health prior to this denies any chest pain, PND, orthopnea, shortness of breath, cough, sputum production, no fevers, no rigors, no chills, no diarrhea she has been able to tolerate or her meals with no digestive symptoms. Preliminary workup has been essentially nonrevealing including CT of abdomen and pelvis for however a 4 mm gallbladder carb close was visualized. Patient has been admitted for further evaluation management and treatment. Review of Systems Review of Systems: Nausea, vomiting, diaphoresis. Constitutional: Constitutional: Denies chills, Denies fatigue, Denies fever(s), Denies frequent falls, Denies malaise, Denies night sweats and Denies poor appetite Eyes: Eyes: Denies change in vision ENT: Denies dysphagia, Denies vertigo, Denies dizziness and Denies odynophagia Cardiovascular: Cardiovascular: Denies chest pain, Reports lightheadedness and Denies dyspnea on exertion Respiratory: Respiratory: Denies cough and Denies pain on inspiration Gastrointestinal: Gastrointestinal: Denies abdominal pain, Denies dyspepsia, Denies heartburn, Denies diarrhea, Reports nausea and Reports vomiting Genitourinary: Genitourinary: Denies dysuria Musculoskeletal: Musculoskeletal: Reports myalgias and Reports arthralgias Integumentary/Breasts: Skin/Breast: Denies rash Neurologic: Denies vertigo, Denies dizziness, Denies focal weakness and Denies Sensory deficit (Neuro) Psychiatric: Psychiatric: Reports no additional psychiatric complaints and Reports as per HPI Endocrine: Endocrine: Denies cold intolerance, Denies flushing, Denies heat intolerance, Denies polyphagia, Denies polydipsia and Denies palpitations Hematologic/Lymphatic: Hematologic/Lymphatic: Reports no additional hematologic/lymphatic complaints and Reports as per HPI Allergic/Immunologic: Allergic/Immunologic: Reports no additional allergic/immunologic complaints and Reports as per HPI [facility] Past Medical History Medical History Asthma Benign and innocent cardiac murmurs echocardiogram 6.2.20 normal valves Elevated troponin History of cardiac disorder Old myocardial infarction TYRONE (obstructive sleep apnea) 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 Rheumatic fever possible rheumatic fever as a teenager, no sequelae Status post proximal row carpectomy of wrist (~2008) Surgical History Surgical History H/O hand surgery has had 7 hand surgeries History of cardiac cath 6.24.20 normal coronaries/ sl diastolic dysfunction History of carpal tunnel release (~1998) History of reverse total replacement of shoulder joint History of shoulder replacement (~02/10/18) Presence of left artificial knee joint Presence of left artificial shoulder joint Presence of right artificial knee joint (12/08/17) Presence of right artificial shoulder joint S/p total knee replacement, bilateral (~05/05/18) Family History Family History Father Family history of primary malignant neoplasm of liver Family history of cardiovascular disease Family history of lung cancer Emphysema lung Family history of congenital heart disease Hypertension Pne
[2022-10-02 03:08] LABS: SARS-CoV-2 RNA PCR Negative
[2022-10-02] MEDS: PROMETHAZINE HCL 25 MG/ML AMPUL 12.5 MG IV PUSH (03:11)
--- NOTE | 2022-10-02 03:17 | PC.NURSE ---
previous RN gave pt. 324 m ASA po via orders, but screen timed out and charting in MAR was not completed.
[2022-10-02 03:32] LABS: Alanine Aminotransferase 21 U/L (6-35); Albumin Level 4.5 g/dL (3.5-5.1); Alkaline Phosphatase 116 U/L (38-126); Aspartate Amino Transferase 40 U/L (14-36); Bilirubin,Total 1.1 mg/dL (0.2-1.3); Lipase 27 U/L (23-300)
--- NOTE | 2022-10-02 03:33 | PC.NURSE ---
pt. to CT
--- NOTE | 2022-10-02 03:53 | ADMGEN ---
This patient, Marcia Melgar, was admitted to IMU Room 205-01 AT 0350. Patient/family oriented to hospital policies and general routines including ID bracelet, bed and alarms, visiting hours, pain management, procedures, bathroom and other care routines, personal items, smoking policy, room service/diet, and visiting hours. Information on how to activate the Rapid Response Team has been discussed. Patient/Family are encouraged to report perceived risks to care and to ask questions if they do not understand what they are told or what they should do.
[2022-10-02 04:09] LABS: Troponin I 0.032 ng/mL (0.000-0.034)
[2022-10-02] MEDS: PROCHLORPERAZINE EDISYLATE 10 MG/2 ML VIAL IV PUSH (04:54)
[2022-10-02] MEDS: PANTOPRAZOLE SODIUM IV 40 MG VIAL IV PUSH ×2 (08:25→20:51)
[2022-10-02] MEDS: METOPROLOL SUCCINATE EXT REL 100 MG TABCR PO (09:44)
[2022-10-02] MEDS: CHOLECALCIFEROL 1,000 UNITS TABLET 2000 UNITS PO (09:44)
--- NOTE | 2022-10-02 11:07 | PM.IMPN ---
Progress Note: A&P Assessment and Plan (1) Nausea and vomiting: Code(s): R11.2 - Nausea with vomiting, unspecified Status: Acute Assessment and Plan: Patient presented with an episode of nausea along with diaphoresis. Initial workup with mild leukocytosis 11 K troponin is negative. Serial troponin is negative. Insignificant LFT. Normal lipase. EKG with left axis deviation interventricular conduction delay nonspecific ST-T changes with no significant change compared to previous EKG. Chest x-ray with no acute cardiopulmonary process. CT abdomen pelvis with small sliding hiatal hernia and cholelithiasis. No evidence of cholecystitis PPI started Right upper quadrant tenderness on evaluation. I will order Right upper ultrasound for further evaluation Will also need to check her urine If nausea vomiting bruised can start with clear liquids (2) Gastro-esophageal reflux disease with esophagitis: Code(s): K21.0 - Gastro-esophageal reflux disease with esophagitis Status: Acute Assessment and Plan: PPI (3) Paroxysmal atrial fibrillation: Code(s): I48.0 - Paroxysmal atrial fibrillation Status: Acute Assessment and Plan: rate controlled and anticoagulated continue home meds (4) Spinal stenosis, lumbar region, without neurogenic claudication: Code(s): M48.061 - Spinal stenosis, lumbar region without neurogenic claudication Status: Acute Assessment and Plan: Tylenol as needed (5) TYRONE (obstructive sleep apnea): Code(s): G47.33 - Obstructive sleep apnea (adult) (pediatric) Status: Acute Assessment and Plan: CPAP as needed (6) Atherosclerotic heart disease of [place] coronary artery with other forms of angina pectoris: Code(s): I25.118 - Atherosclerotic heart disease of [place] coronary artery with other forms of angina pectoris Status: Acute Assessment and Plan: EKG reviewed no chest pain (7) Major depressive disorder, recurrent, moderate: Code(s): F33.1 - Major depressive disorder, recurrent, moderate Status: Acute Assessment and Plan: continue home meds stable follow-up in outpatient setting Plan DVT prophylaxis on rivaroxaban at home which is continued Code status full code Subjective Date/time seen: 10/02/22 11:07 Interval history: HPI:This is a 67-year-old female with past medical history significant for hypertension, GERD, atrial fibrillation rate controlled anticoagulated, obesity, obstructive sleep apnea, osteoarthritis of both shoulders status post bilateral arthroplasty,? [place]. patient has been working at the [employer] and at the end of the day she had an episode of diaphoresis with nausea vomiting epigastric abdominal pain lightheadedness presented to our emergency room for evaluation by ambulance after her coworkers called EMS. patient has been in her usual state of health prior to this denies any chest pain, PND, orthopnea, shortness of breath, cough, sputum production, no fevers, no rigors, no chills, no diarrhea she has been able to tolerate or her meals with no digestive symptoms.? Preliminary workup has been essentially nonrevealing including CT of abdomen and pelvis for however a 4 mm gallbladder carb close was visualized.? Patient has been admitted for further evaluation management and treatment. 10/02/2022 continues to feel bit nauseous. Denies any abdominal pain per se. She reports some soreness in his chest from vomiting. Denies any fever chills no cough or shortness of breath Review of Systems Review of Systems: All systems reviewed & are unremarkable except as noted in HPI and below Exam Narrative: GENERAL: Well-appearing, well-nourished, and in no acute distress. HEAD: Normocephalic, atraumatic. EYES: PERRL and EOMI. ENT:? Mucous membranes moist. CHEST: Clear to auscultation.? No respiratory distress. HEART: Regular rate and rhythm.? Normal peripheral pulses. ABDOMEN:
--- NOTE | 2022-10-02 11:35 | PM.CNCAR ---
Assessment and Plan Assessment and plan (1) Nausea and vomiting: Code(s): R11.2 - Nausea with vomiting, unspecified Status: Acute (2) Paroxysmal atrial fibrillation: Code(s): I48.0 - Paroxysmal atrial fibrillation Status: Acute Plan Patient's symptoms do not appear to be cardiac in origin. Cardiac workup reviewed and noted in HPI, including a cath 2 years ago showing normal coronaries. Patient does have predominately symptoms of nausea, vomiting, abdominal pain, and she does have abdominal tenderness upon palpitation. Consider GI etiology. At this time, I do not believe patient needs further cardiac workup. Patient is currently in sinus rhythm. Continue home beta andres and Xarelto. History of Present Illness History of Present Illness Consult date/time: 10/02/22 11:35 Requesting physician: Rl Bolanos MD Consult reason: chest pain Reason For Visit: palpitations,atypical chest pain Narrative: Patient is a 67-year-old female with a history of hypertension, GERD, atrial fibrillation, obesity, TYRONE who presented with nausea, vomiting, abdominal pain. Symptoms began last night around 8PM when she was working the [employer]. Patient reports some nausea this morning. Has not had chest pain recently. Denies shortness of breath. Evaluation showed negative troponins. ECG shows sinus rhythm, nonspecific STTW abnormalities. EKG without changes compared to prior. Patient had a cardiac cath done in 2019 which showed: Left coronary artery:? The left main, Left anterior descending and circumflex vessels were widely patent and free of disease.? Right coronary artery:? The right coronary artery was dominant and free of disease Left ventriculogram:? Normal left ventricular systolic function, no mitral regurgitation, estimated ejection fraction greater than 70% Right common femoral artery:? Patent and free of disease. Conclusion::?Normal coronary arteries Normal left ventricular systolic function, EF greater than 70% Bradycardia with heart rates generally in the upper 40's Mildly elevated LVEDP suggesting a degree of diastolic dysfunction. Review of Systems Review of Systems: 12-point ROS obtained. Negative, unless stated in HPI. [facility] Past Medical History Medical History Asthma Benign and innocent cardiac murmurs echocardiogram 6.2.20 normal valves Elevated troponin History of cardiac disorder Old myocardial infarction TYRONE (obstructive sleep apnea) 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 Rheumatic fever possible rheumatic fever as a teenager, no sequelae Status post proximal row carpectomy of wrist (~2008) Surgical History Surgical History H/O hand surgery has had 7 hand surgeries History of cardiac cath 6.24.20 normal coronaries/ sl diastolic dysfunction History of carpal tunnel release (~1998) History of reverse total replacement of shoulder joint History of shoulder replacement (~02/10/18) Presence of left artificial knee joint Presence of left artificial shoulder joint Presence of right artificial knee joint (12/08/17) Presence of right artificial shoulder joint S/p total knee replacement, bilateral (~05/05/18) Family History Family History Father Family history of primary malignant neoplasm of liver Family history of cardiovascular disease Family history of lung cancer Emphysema lung Family history of congenital heart disease Hypertension Pneumonia cause of , age 55 Acute myocardial infarction had heart disease, patient is unsure of what type. Grandparent Diabetes mellitus Mother Skin cancer Hypertension Cerebrovascular accident Sibling Hypertension Social History Social History (Reviewed
[2022-10-02] MEDS: POTASSIUM CHLORIDE INJ 40 MEQ in SODIUM CHLORIDE 0.9% IV 500 ML 130 MEQ IVPB (13:23)
[2022-10-02] MEDS: RIVAROXABAN 20 MG TABLET PO (16:37)
--- NOTE | 2022-10-02 20:06 | ECG_ITS ---
Measurements Intervals [place] Rate: 70 P: 54 MT: 155 QRS: -44 QRSD: 106 T: -22 QT: 452 QTc: 489 Interpretive Statements SINUS RHYTHM WITH SINUS ARRHYTHMIA LEFT AXIS DEVIATION VOLTAGE CRITERIA FOR LVH POOR R WAVE PROGRESSION, ANTERIOR LEADS BORDERLINE ST-T WAVE ABNORMALITY- ANT/INF LEADS BASELINE ARTIFACT- V3-V6 BORDERLINE ECG COMPARED TO ECG 10/02/2022 02:06:09 SINUS ARRHYTHMIA NOW PRESENT Electronically Signed On 10-03-2022 14:57:41 ORDERING MACHINE OPERATOR by Saravanan Conti D.O.
[2022-10-02 20:49] LABS: Glucose Point of Care 140 mg/dl (65-105)
[2022-10-03] VITALS: PULSE 71
[2022-10-03 00:14] VITALS: O2SAT 95
[2022-10-03 05:08] LABS: Basophils Percent Auto 0.1 % (0.2-1.2); Hematocrit 40.1 % (37.0-47.0); Hemoglobin 13.1 g/dL (12.0-15.0); Immature Granulocyte Absolute 0.08 K/mm3 (0.00-0.031); Immature Granulocyte Percent A 0.6 % (0-0.5); Lymphocytes Percent Auto 10.6 % (18.3-44.2); Mean Corpuscular HGB Conc 32.7 g/dl (32-36); Mean Corpuscular Hemoglobin 29.1 pg (26-34); Mean Corpuscular Volume 89.1 fl (80-100); Mean Platelet Volume 9.6 fl (7.4-10.4); Monocytes Percent Auto 7.1 % (2.6-8.5); Neutrophils Absolute Auto 11.5 K/mm3 (1.3-6.7); Neutrophils Percent Auto 81.6 % (45.5-73.1); Platelet Count Result 366 k/mm3 (150-375); Red Cell Distribution Width 13.2 % (11.5-14.5); White Blood Count 14.1 K/mm3 (4.5-10.0)
[2022-10-03 05:21] LABS: Alanine Aminotransferase 20 U/L (6-35); Albumin Level 4.5 g/dL (3.5-5.1); Alkaline Phosphatase 104 U/L (38-126); Anion Gap 14 mmol/L (8-16); Aspartate Amino Transferase 39 U/L (14-36); Bilirubin,Total 1.1 mg/dL (0.2-1.3); Blood Urea Nitrogen 16 mg/dL (7-17); Calcium 9.2 mg/dL (8.4-10.2); Carbon Dioxide 21 mmol/L (22-30); Chloride 100 mmol/L (98-107); Estimated CRCL calculation 86 ml/min; Estimated Glomerular Filt Rate > 60; Glucose 117 mg/dL (65-110); Magnesium 2.1 mg/dL (1.6-2.3); Potassium 3.2 mmol/L (3.4-5.0); Sodium 135 mmol/L (137-145)
--- NOTE | 2022-10-03 06:00 | PC.NURSE ---
This patient, Marcia Melgar, was transferred to [[facility] ] on 10/03/22 at 0535. Personal belongings sent with patient. Report given to [ARIK MELGAR ]. Appropriate documentation sent with patient.
[2022-10-03] MEDS: PANTOPRAZOLE SODIUM IV 40 MG VIAL IV PUSH ×2 (09:16→21:11)
[2022-10-03 09:17] VITALS: PULSE 89
[2022-10-03] MEDS: METOPROLOL SUCCINATE EXT REL 100 MG TABCR PO (09:17)
[2022-10-03] MEDS: CHOLECALCIFEROL 1,000 UNITS TABLET 2000 UNITS PO (09:18)
[2022-10-03 14:00] VITALS: BP 142/60; PULSE 59; RESP 16; TEMP 36.4; O2SAT 96
--- NOTE | 2022-10-03 15:15 | WPDGICN ---
Assessment and Plan Assessment and plan (1) Nausea and vomiting: Code(s): R11.2 - Nausea with vomiting, unspecified Status: Acute Assessment and Plan: here with lightheadedness after intractable vomiting now better, also hypokalemia will proceed with egd tomorrow ? gastroenteritis (2) Atypical chest pain: Code(s): R07.89 - Other chest pain Status: Acute Assessment and Plan: cardiac evaluation negative (3) Paroxysmal atrial fibrillation: Code(s): I48.0 - Paroxysmal atrial fibrillation Status: Acute (4) Atherosclerotic heart disease of [place] coronary artery with other forms of angina pectoris: Code(s): I25.118 - Atherosclerotic heart disease of [place] coronary artery with other forms of angina pectoris Status: Acute (5) Hypokalemia: Code(s): E87.6 - Hypokalemia Status: Acute Assessment and Plan: treated GI Consult Note Consult date/time: 10/03/22 15:15 Reason for consult: n/v HPI: Marcia Melgar is a 67 year old female with history of hypertension, GERD, atrial fibrillation, obesity, TYRONE who came to the hospital with new onset of nausea, vomiting, abdominal pain along with?diaphoresis and lightheadedness. Symptoms began last night around 8PM after she had a long day working at the [employer]. She also had chest discomfort but cardiology evaluation unremarkable. She is feeling better now but still nauseous. Review of Systems Review of Systems: Nausea, vomiting, diaphoresis. Constitutional: Constitutional: Denies chills, Denies fatigue, Denies fever(s), Denies frequent falls, Denies malaise, Denies night sweats and Denies poor appetite Eyes: Eyes: Denies change in vision ENT: Denies dysphagia, Denies vertigo, Denies dizziness and Denies odynophagia Cardiovascular: Cardiovascular: Denies chest pain, Reports lightheadedness and Denies dyspnea on exertion Respiratory: Respiratory: Denies cough and Denies pain on inspiration Gastrointestinal: Gastrointestinal: Denies abdominal pain, Denies dyspepsia, Denies heartburn, Denies diarrhea, Reports nausea and Reports vomiting Genitourinary: Genitourinary: Denies dysuria Musculoskeletal: Musculoskeletal: Reports myalgias and Reports arthralgias Integumentary/Breasts: Skin/Breast: Denies rash Neurologic: Denies vertigo, Denies dizziness, Denies focal weakness and Denies Sensory deficit (Neuro) Psychiatric: Psychiatric: Reports no additional psychiatric complaints and Reports as per HPI Endocrine: Endocrine: Denies cold intolerance, Denies flushing, Denies heat intolerance, Denies polyphagia, Denies polydipsia and Denies palpitations Hematologic/Lymphatic: Hematologic/Lymphatic: Reports no additional hematologic/lymphatic complaints and Reports as per HPI Allergic/Immunologic: Allergic/Immunologic: Reports no additional allergic/immunologic complaints and Reports as per HPI PMFSH Past Medical History Medical History (Updated 10/03/22 @ 15:18 by Willard Saab MD) Asthma Benign and innocent cardiac murmurs echocardiogram 6.2.20 normal valves Elevated troponin History of cardiac disorder Hypokalemia Old myocardial infarction TYRONE (obstructive sleep apnea) 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 Rheumatic fever possible rheumatic fever as a teenager, no sequelae Status post proximal row carpectomy of wrist (~2008) Surgical History Surgical History H/O hand surgery has had 7 hand surgeries History of cardiac cath 6.24.20 normal coronaries/ sl diastolic dysfunction History of carpal tunnel release (~1998) History of reverse total replacement of shoulder joint History of shoulder replacement (~02/10/18) Presence of left artificial knee joint Presence of left artificial shoulder joint Presence of right artificial knee joint (12/08/17) Presence of right artificial shoulder gabriel
[2022-10-03 16:05] LABS: Appearance Urine Slightly Cloudy (Clear); Bilirubin Urine 1+ (Negative); Blood Urine 3+ (Negative); Color Urine Yellow (Yellow); Glucose Urine UA Negative (Negative); Ketones Urine 1+ mg/dL (Negative); Leukocyte Esterase Ur 1+ LEU/UL (NEGATIVE); Nitrate Urine Negative (Negative); Protein Urine 2+ mg/dL (Negative); Specific Grav Ur 1.025 (1.001-1.035); Urobilinogen Urine 0.2 mg/dL (<2.0)
[2022-10-03] MEDS: RIVAROXABAN 20 MG TABLET PO (16:15)
[2022-10-03] MEDS: POTASSIUM CHLORIDE 20 MEQ PACKET (FOR LIQUID) 40 MEQ PO (16:15)
[2022-10-03 16:24] LABS: Mucus Urine Rare /lpf; RBC Urine >75 /hpf (0-2); Squamous Epithelial Cell Urine Occasional /hpf (Few)
[2022-10-03 16:28] LABS: Add Urine Microscopic? YES
--- NOTE | 2022-10-03 16:44 | PM.IMPN ---
Progress Note: A&P Assessment and Plan (1) Nausea and vomiting: Code(s): R11.2 - Nausea with vomiting, unspecified Status: Acute Assessment and Plan: Patient presented with an episode of nausea along with diaphoresis. Initial workup with mild leukocytosis 11 K troponin is negative. Serial troponin is negative. Insignificant LFT. Normal lipase. EKG with left axis deviation interventricular conduction delay nonspecific ST-T changes with no significant change compared to previous EKG. Chest x-ray with no acute cardiopulmonary process. CT abdomen pelvis with small sliding hiatal hernia and cholelithiasis. No evidence of cholecystitis PPI started Right upper quadrant tenderness on evaluation. 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 (2) Gastro-esophageal reflux disease with esophagitis: Code(s): K21.0 - Gastro-esophageal reflux disease with esophagitis Status: Acute Assessment and Plan: PPI (3) Paroxysmal atrial fibrillation: Code(s): I48.0 - Paroxysmal atrial fibrillation Status: Acute Assessment and Plan: rate controlled and anticoagulated continue home meds (4) Spinal stenosis, lumbar region, without neurogenic claudication: Code(s): M48.061 - Spinal stenosis, lumbar region without neurogenic claudication Status: Acute Assessment and Plan: Tylenol as needed (5) TYRONE (obstructive sleep apnea): Code(s): G47.33 - Obstructive sleep apnea (adult) (pediatric) Status: Acute Assessment and Plan: CPAP as needed (6) Atherosclerotic heart disease of [place] coronary artery with other forms of angina pectoris: Code(s): I25.118 - Atherosclerotic heart disease of [place] coronary artery with other forms of angina pectoris Status: Acute Assessment and Plan: EKG reviewed no chest pain (7) Major depressive disorder, recurrent, moderate: Code(s): F33.1 - Major depressive disorder, recurrent, moderate Status: Acute Assessment and Plan: continue home meds stable follow-up in outpatient setting Plan DVT prophylaxis on rivaroxaban at home which is continued Code status full code Subjective Date/time seen: 10/03/22 16:44 Interval history: HPI:This is a 67-year-old female with past medical history significant for hypertension, GERD, atrial fibrillation rate controlled anticoagulated, obesity, obstructive sleep apnea, osteoarthritis of both shoulders status post bilateral arthroplasty,? [place]. patient has been working at the [employer] and at the end of the day she had an episode of diaphoresis with nausea vomiting epigastric abdominal pain lightheadedness presented to our emergency room for evaluation by ambulance after her coworkers called EMS. patient has been in her usual state of health prior to this denies any chest pain, PND, orthopnea, shortness of breath, cough, sputum production, no fevers, no rigors, no chills, no diarrhea she has been able to tolerate or her meals with no digestive symptoms.? Preliminary workup has been essentially nonrevealing including CT of abdomen and pelvis for however a 4 mm gallbladder carb close was visualized.? Patient has been admitted for further evaluation management and treatment. 10/03/2022 interval history: patient presented with chest pain with
[2022-10-03] MEDS: ONDANSETRON INJ 4 MG/2 ML VIAL IV PUSH (17:33)
[2022-10-03] MEDS: MORPHINE SULFATE (*CRX) 4 MG/ML INJ IV PUSH (21:11)
[2022-10-03 21:30] VITALS: BP 177/72; PULSE 66; RESP 16; TEMP 36.6; O2SAT 95
[2022-10-03 22:34] VITALS: BP 125/62
[2022-10-04] VITALS (20 sets, daily range): BP systolic 135–220; BP diastolic 63–161; PULSE 59–81; RESP 14–26; TEMP 35.8–36.3; O2SAT 94–100
[2022-10-04 08:36] LABS: Hematocrit 42.1 % (37.0-47.0); Hemoglobin 14.1 g/dL (12.0-15.0); Mean Corpuscular HGB Conc 33.5 g/dl (32-36); Mean Corpuscular Hemoglobin 29.6 pg (26-34); Mean Corpuscular Volume 88.4 fl (80-100); Mean Platelet Volume 9.1 fl (7.4-10.4); Platelet Count Result 343 k/mm3 (150-375); Red Blood Count 4.76 M/mm3 (4.2-5.4); White Blood Count 10.4 K/mm3 (4.5-10.0)
[2022-10-04] MEDS: PANTOPRAZOLE SODIUM IV 40 MG VIAL IV PUSH (08:47)
[2022-10-04 08:54] LABS: Alanine Aminotransferase 25 U/L (6-35); Albumin Level 4.2 g/dL (3.5-5.1); Alkaline Phosphatase 97 U/L (38-126); Anion Gap 11 mmol/L (8-16); Aspartate Amino Transferase 45 U/L (14-36); Bilirubin,Total 1.3 mg/dL (0.2-1.3); Blood Urea Nitrogen 16 mg/dL (7-17); Carbon Dioxide 27 mmol/L (22-30); Chloride 99 mmol/L (98-107); Estimated CRCL calculation 65 ml/min; Estimated Glomerular Filt Rate > 60; Glucose 91 mg/dL (65-110); Magnesium 2.3 mg/dL (1.6-2.3); Sodium 137 mmol/L (137-145)
[2022-10-04] MEDS: LACTATED RINGERS 1,000 ML 150 ML IV CONT (09:13)
--- NOTE | 2022-10-04 09:24 | WPDANESEPPF ---
Anes - Initial Pre Proc Eval Procedure: Operation Date: 10/04/22 14:45 Proposed Procedures p Esophagogastroduodenoscopy - Willard Saab MD Date/Time: 10/04/22 09:24 Surgeon: Archie Bright MD Pre Op Diagnosis: palpitations,atypical chest pain Patient Data Age: 67 Gender: F Height: 1.63 m Weight: 97.2 kg Last Vital Signs Temp 36.1 C L 10/04/22 09:10 Pulse 59 L 10/04/22 09:10 Resp 19 10/04/22 09:10 BP 143/63 H 10/04/22 09:10 Pulse Ox 97 10/04/22 09:10 O2 Del Method Room Air 10/04/22 09:10 Allergies Allergy/AdvReac Type Severity Reaction Status Date / Time No Known Allergies Allergy Verified 10/04/22 09:07 Home Medications Medication Instructions Recorded Confirmed Type rivaroxaban 20 mg tablet (Xarelto) 20 mg PO DAILY@1700 #90 tabs 05/29/21 10/02/22 Rx metoprolol succinate 100 mg 100 mg PO DAILY 05/14/22 10/02/22 History tablet,extended release 24 hr atorvastatin 40 mg tablet 40 mg PO DAILY 09/17/22 10/02/22 History cholecalciferol (vitamin D3) 50 50 mcg PO DAILY 09/17/22 10/02/22 History mcg (2,000 unit) capsule celecoxib 200 mg capsule 200 mg PO DAILY 10/02/22 10/02/22 History lisinopril 10 mg tablet 10 mg PO DAILY 10/02/22 10/02/22 History pantoprazole 20 mg tablet,delayed 20 mg PO DAILY 10/02/22 10/02/22 History release Laboratory Tests 10/03/22 10/04/22 10/04/22 15:45 08:19 08:19 WBC 10.4 K/mm3 H K/mm3 (4.5-10.0) RBC 4.76 M/mm3 M/mm3 (4.2-5.4) Hgb 14.1 g/dL g/dL (12.0-15.0) Hct 42.1 % % (37.0-47.0) MCV 88.4 fl fl (80-100) MCH 29.6 pg pg (26-34) MCHC 33.5 g/dl g/dl (32-36) RDW 13.0 % % (11.5-14.5) Plt Count 343 k/mm3 k/mm3 (150-375) MPV 9.1 fl fl (7.4-10.4) Sodium 137 mmol/L mmol/L (137-145) Potassium 3.0 mmol/L L mmol/L (3.4-5.0) Chloride 99 mmol/L mmol/L (98-107) Carbon Dioxide 27 mmol/L mmol/L (22-30) Anion Gap 11 mmol/L mmol/L (8-16) BUN 16 mg/dL mg/dL (7-17) Creatinine 0.80 mg/dL mg/dL (0.7-1.0) Estim Creat Clear Calc 65 ml/min ml/min Estimated GFR > 60 (59 - ) Glucose 91 mg/dL mg/dL (65-110) Calcium 9.0 mg/dL mg/dL (8.4-10.2) Magnesium 2.3 mg/dL mg/dL (1.6-2.3) Total Bilirubin 1.3 mg/dL mg/dL (0.2-1.3) AST 45 U/L H U/L (14-36) ALT 25 U/L U/L (6-35) Alkaline Phosphatase 97 U/L U/L (38-126) Total Protein 7.0 g/dL g/dL (6.3-8.2) Albumin 4.2 g/dL g/dL (3.5-5.1) Urine Color Yellow (Yellow) Urine Appearance Slightly cloudy (Clear) Urine pH 6.0 (5.0-9.0) Ur Specific [place] 1.025 (1.001-1.035) Urine Protein 2+ mg/dL H mg/dL (Negative) Urine Glucose (UA) Negative mg/dL mg/dL (Negative) Urine Ketones 1+ mg/dL H mg/dL (Negative) Ur Blood (Man) 3+ H (Negative) Urine Nitrate Negative (Negative) Urine Bilirubin 1+ H (Negative) Urine Urobilinogen 0.2 mg/dL mg/dL (<2.0) Ur Leukocyte Esterase 1+ LULI/UL H LULI/UL (NEGATIVE) Urine RBC >75 /hpf H /hpf (0-2) Urine WBC 10-15 /hpf H /hpf (0-3) Ur Squamous Epith Cells Occasional /hpf /hpf (Few) Urine Mucus Rare /lpf /lpf Patient hx anesthesia problems: none Family hx anesthesia problems: none Results Review: All pre-operative results and documents have been reviewed as part of the pre-operative evaluation. [facility] Past Medical History Medical History Asthma Benign and innocent cardiac murmurs echocardiogram 6.2.20 normal valves Elevated troponin History of cardiac disorder Hypokalemia Old myocardial infarction TYRONE (obst
--- NOTE | 2022-10-04 09:40 | PC.NURSE ---
Parker said to hold morning metoprolol & vit D
[2022-10-04] MEDS: hydrALAZINE HCL 20 MG/ML VIAL 10 MG IV PUSH (10:01)
[2022-10-04] MEDS: MORPHINE SULFATE (*CRX) 2 MG/ML INJ IV PUSH (10:21)
--- NOTE | 2022-10-04 10:35 | SUR.PHASEII ---
[id number]. HOUSER NOTIFIED OF HIGH BLOOD PRESSURE. INSTRUCTED TO GIVE PATIENT HYDRALAZINE. O2 APPLIED AT 2L.
[2022-10-04] MEDS: LABETALOL HCL INJ 100 MG/20 ML VIAL 10 MG IV PUSH ×2 (10:52→11:07)
--- NOTE | 2022-10-04 11:34 | SUR.PHASEII ---
DR. HOUSER NOTIFIED OF B/P. AUTHORIZED TO RETURN PATIENT TO FLOOR.
[2022-10-04] MEDS: METOPROLOL SUCCINATE EXT REL 100 MG TABCR PO (12:10)
[2022-10-04] MEDS: CHOLECALCIFEROL 1,000 UNITS TABLET 2000 UNITS PO (12:10)
[2022-10-04] MEDS: MORPHINE SULFATE (*CRX) 4 MG/ML INJ IV PUSH (12:12)
[2022-10-04] MEDS: ONDANSETRON INJ 4 MG/2 ML VIAL IV PUSH (12:12)
--- NOTE | 2022-10-04 17:21 | PM.IMPN ---
Progress Note: A&P Assessment and Plan (1) Nausea and vomiting: Code(s): R11.2 - Nausea with vomiting, unspecified Status: Acute Assessment and Plan: Patient presented with an episode of nausea along with diaphoresis. Initial workup with mild leukocytosis 11 K troponin is negative. Serial troponin is negative. Insignificant LFT. Normal lipase. EKG with left axis deviation interventricular conduction delay nonspecific ST-T changes with no significant change compared to previous EKG. Chest x-ray with no acute cardiopulmonary process. CT abdomen pelvis with small sliding hiatal hernia and cholelithiasis. No evidence of cholecystitis PPI started Right upper quadrant tenderness on evaluation. I will order Right upper ultrasound for further evaluation Will also need to check her urine If nausea vomiting bruised can start with clear liquids 10/04/2022 interval history: patient presented with chest pain with history proximal atrial fibrillation, patient 3 sets of cardiac enzymes are negative and patient seen by Cardiology does not suspect patient has a coronary artery disease,, service superintendent suspect most likely GI issues, patient was seen by GI recommended EGD to further evaluate, patient states a chest pain has resolved a continue to complain of abdominal pain, patient works in the [employer] no one is sick, today patient had EGD, essentially normal no sign of gastritis, however patient is still quite nauseated and abdominal pain with p.o. intake, will monitor patient overnight and reassess in the morning, and further recommendation to follow. (2) Gastro-esophageal reflux disease with esophagitis: Code(s): K21.0 - Gastro-esophageal reflux disease with esophagitis Status: Acute Assessment and Plan: PPI (3) Paroxysmal atrial fibrillation: Code(s): I48.0 - Paroxysmal atrial fibrillation Status: Acute Assessment and Plan: rate controlled and anticoagulated continue home meds (4) Spinal stenosis, lumbar region, without neurogenic claudication: Code(s): M48.061 - Spinal stenosis, lumbar region without neurogenic claudication Status: Acute Assessment and Plan: Tylenol as needed (5) TYRONE (obstructive sleep apnea): Code(s): G47.33 - Obstructive sleep apnea (adult) (pediatric) Status: Acute Assessment and Plan: CPAP as needed (6) Atherosclerotic heart disease of [place] coronary artery with other forms of angina pectoris: Code(s): I25.118 - Atherosclerotic heart disease of [place] coronary artery with other forms of angina pectoris Status: Acute Assessment and Plan: EKG reviewed no chest pain (7) Major depressive disorder, recurrent, moderate: Code(s): F33.1 - Major depressive disorder, recurrent, moderate Status: Acute Assessment and Plan: continue home meds stable follow-up in outpatient setting Plan DVT prophylaxis on rivaroxaban at home which is continued Code status full code Subjective Date/time seen: 10/04/22 17:21 Interval history: HPI:This is a 67-year-old female with past medical history significant for hypertension, GERD, atrial fibrillation rate controlled anticoagulated, obesity, obstructive sleep apnea, osteoarthritis of both shoulders status post bilateral arthroplasty,? [place] patient has been working at the [employer] and at the end of the day she had an episode of diaphoresis with nausea vomiting epigastric abdominal pain lightheadedness presented to our emergency room for evaluation by ambulance after her coworkers called EMS. patient has been in her usual state of health prior to this denies any chest pain, PND, orthopnea, shortness of breath, cough, sputum production, no fevers, no rigors, no chills, no diarrhea she has been able to tolerate or her meals with no digestive symptoms.? Preliminary workup has been essentially nonrevealing including CT of abdomen and pelvis for however a 4 mm gallbl
[2022-10-04] MEDS: RIVAROXABAN 20 MG TABLET PO (17:25)
[2022-10-05 06:00] VITALS: BP 141/71; PULSE 66; RESP 15; TEMP 36.6; O2SAT 94
--- NOTE | 2022-10-05 09:09 | WPDANESPN ---
Anes - Prog Note Post-Op Date/Time: 10/05/22 09:09 Cardiovascular status: normal Respiratory status: normal Airway patency: baseline Mental status: baseline Post-Op hydration status: normal Vital Signs: Last Vital Signs Temp 36.6 C 10/05/22 06:00 Pulse 66 10/05/22 06:00 Resp 15 10/05/22 06:00 BP 141/71 H 10/05/22 06:00 Pulse Ox 94 10/05/22 06:00 O2 Del Method Room Air 10/04/22 11:36 O2 Flow Rate 2 10/04/22 09:56 Pain Score (VAS): 0/10 I/O: Intake & Output 10/04/22 10/05/22 10/05/22 23:59 07:59 15:59 Intake Total 240 300 Balance 240 300 Laboratory Tests 10/04/22 08:19 10/04/22 08:19 Post-procedural complaints: none Patient Feedback: Patient satisfied with anesthetic care.
[2022-10-05] MEDS: METOPROLOL SUCCINATE EXT REL 100 MG TABCR PO (09:32)
[2022-10-05] MEDS: CHOLECALCIFEROL 1,000 UNITS TABLET 2000 UNITS PO (09:32)
[2022-10-05 10:15] LABS: Hematocrit 42.8 % (37.0-47.0); Hemoglobin 14.6 g/dL (12.0-15.0); Mean Corpuscular HGB Conc 34.1 g/dl (32-36); Mean Corpuscular Hemoglobin 29.1 pg (26-34); Mean Corpuscular Volume 85.3 fl (80-100); Mean Platelet Volume 8.9 fl (7.4-10.4); Platelet Count Result 392 k/mm3 (150-375); Red Blood Count 5.02 M/mm3 (4.2-5.4); Red Cell Distribution Width 12.6 % (11.5-14.5); White Blood Count 11.5 K/mm3 (4.5-10.0)
[2022-10-05 10:35] LABS: Alanine Aminotransferase 27 U/L (6-35); Albumin Level 4.5 g/dL (3.5-5.1); Alkaline Phosphatase 97 U/L (38-126); Anion Gap 15 mmol/L (8-16); Aspartate Amino Transferase 45 U/L (14-36); Bilirubin,Total 1.5 mg/dL (0.2-1.3); Blood Urea Nitrogen 15 mg/dL (7-17); Calcium 9.2 mg/dL (8.4-10.2); Carbon Dioxide 27 mmol/L (22-30); Chloride 92 mmol/L (98-107); Estimated CRCL calculation 65 ml/min; Estimated Glomerular Filt Rate > 60; Glucose 111 mg/dL (65-110); Magnesium 2.2 mg/dL (1.6-2.3); Potassium 2.5 mmol/L (3.4-5.0); Sodium 134 mmol/L (137-145)
[2022-10-05] MEDS: PANTOPRAZOLE SOD SESQUIHYDRATE 20 MG TAB PO (11:17)
[2022-10-05] MEDS: MAGNESIUM SULF 2 GM/WATER 50ML 2 GM/50 ML BAG IVPB (11:17)
[2022-10-05] MEDS: POTASSIUM CHLORIDE 20 MEQ TABLET 40 MEQ PO (11:17)
[2022-10-05] MEDS: POTASSIUM CHLORIDE INJ 40 MEQ in SODIUM CHLORIDE 0.9% IV 500 ML 130 MEQ IVPB (12:19)
[2022-10-05 14:00] VITALS: BP 119/71; PULSE 68; RESP 14; TEMP 35.5; O2SAT 96
--- NOTE | 2022-10-05 14:04 | WPDGIPROGNO ---
Progress Note: A&P Assessment and Plan (1) Nausea and vomiting: Code(s): R11.2 - Nausea with vomiting, unspecified Status: Acute Assessment and Plan: better and egd negative tolerating diet she can go home (2) Atypical chest pain: Code(s): R07.89 - Other chest pain Status: Acute Assessment and Plan: resolved (3) Paroxysmal atrial fibrillation: Code(s): I48.0 - Paroxysmal atrial fibrillation Status: Acute (4) Essential hypertension: Code(s): I10 - Essential (primary) hypertension Status: Acute Assessment and Plan: treated Subjective Date/time seen: 10/05/22 14:04 Interval history: egd yesterday unremarkable with pending biopsies, finally nausea resolved and she is eating more, doing much better. Review of Systems Review of Systems: All systems reviewed & are unremarkable except as noted in HPI and below Exam Const: General: comfortable and no acute distress Other: obese HENMT: Mouth: Yes moist mucous membranes Eyes: General: appearance normal, both eyes and all related structures Neck: Neck: supple and no JVD Resp: Effort & Inspection: normal respiratory effort Auscultation: clear to auscultation bilaterally Cardio: Rate: regular rate Rhythm: regular rhythm Heart sounds: no murmurs GI: GI Palp: Yes Soft to palpation, No Tenderness to palpation present (GI) and No Guarding due to palpation present (GI) Auscultation: normal bowel sounds Skin: General skin exam: normal color Neuro: Speech: normal speech Extrem: General: no edema Psych: Mental Status: mental status grossly normal Objective Data Vital Signs Vital Signs: Vital Signs - 24 hr 10/04/22 22:00 10/05/22 06:00 Temperature 97.3 F L 97.9 F Pulse Rate 68 66 Respiratory Rate 14 15 Blood Pressure 135/63 141/71 H Pulse Oximetry 96 94 Intake/Output Intake/Output: Intake & Output 10/02/22 10/03/22 10/04/22 10/05/22 23:59 23:59 23:59 23:59 Intake Total 472 472 0678 420 Output Total 1350 300 Balance -405 589 2025 420 Meds/Results Medications: Active Medications Generic Name Dose Route Start Last Admin Trade Name Freq PRN Reason Stop Dose Admin Acetaminophen 650 mg 10/02/22 01:37 Acetaminophen 325 Mg Tablet PO Q4H PRN Mild Pain (1-3) or Fever Hydrocodone Bitart/Acetaminophen 1 tab 10/02/22 01:37 Hydrocodone/Acetaminophen (*Crx) 5-325 Mg Tablet PO Q4H PRN Pain Rated 4-6 Potassium Chloride 40 meq/ 520 mls @ 130 mls/hr 10/05/22 10:44 10/05/22 12:19 Sodium Chloride IVPB 10/05/22 14:43 130 mls/hr ONCE ONE Administration Magnesium Oxide 400 mg 10/06/22 09:00 Magnesium Oxide 400 Mg Tablet PO QAM ISIDRO Metoprolol Succinate 100 mg 10/02/22 09:00 10/05/22 09:32 Metoprolol Succinate Ext Rel 100 Mg Tabcr PO 100 mg DAILY ISIDRO Administration Morphine Sulfate 4 mg 10/02/22 01:37 10/04/22 12:12 Morphine Sulfate (*Crx) 4 Mg/Ml Inj IV PUSH 4 mg Q2H PRN Administration Pain Rated 7-10 Ondansetron HCl 4 mg 10/02/22 01:37 10/04/22 12:12 Ondansetron Inj 4 Mg/2 Ml Vial IV PUSH 4 mg Q4H PRN Administration Nausea Pantoprazole Sodium 20 mg 10/05/22 09:00 10/05/22 11:17 Pantoprazole Sod Sesquihydrate 20 Mg Tab PO 20 mg QAM [facility] Administration Rivaroxaban 20 mg 10/02/22 17:00 10/04/22 17:25 Rivaroxaban 20 Mg Tablet PO 20 mg DAILY@1700 [facility] Administration Vitamin D 2,000 units 10/02/22 09:00 10/05/22 09:32 Cholecalciferol 1,000 Units Tablet PO 2,000 units DAILY ISIDRO Administration Radiology Results: ITS Impressions Chest X-Ray 10/01/22 22:01 IMPRESSION: No acute cardiopulmonary process. Abdomen/Pelvis CT 10/02/22 08:28 IMPRESSION: 1. Small sliding hiatal hernia. 2. Cholelithiasis. Upper Quadrant Ultrasound 10/02/22 13:18 IMPRESSION: 1. Normal sonographic study of the gallbladder. Labs Labs: La
--- NOTE | 2022-10-05 16:47 | PM.DS ---
DS: Admitting Diagnosis Discharge Date 10/05/2022 Admitting Diagnosis nausea or vomiting DS: Discharge Diagnosis Discharge Diagnosis (1) Nausea and vomiting: Code(s): R11.2 - Nausea with vomiting, unspecified Status: Acute Assessment and Plan: Patient presented with an episode of nausea along with diaphoresis. Initial workup with mild leukocytosis 11 K troponin is negative. Serial troponin is negative. Insignificant LFT. Normal lipase. EKG with left axis deviation interventricular conduction delay nonspecific ST-T changes with no significant change compared to previous EKG. Chest x-ray with no acute cardiopulmonary process. CT abdomen pelvis with small sliding hiatal hernia and cholelithiasis. No evidence of cholecystitis PPI started Right upper quadrant tenderness on evaluation. 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 intake, will monitor patient overnight and reassess in the morning, and further recommendation to follow. (2) Gastro-esophageal reflux disease with esophagitis: Code(s): K21.0 - Gastro-esophageal reflux disease with esophagitis Status: Acute Assessment and Plan: PPI (3) Paroxysmal atrial fibrillation: Code(s): I48.0 - Paroxysmal atrial fibrillation Status: Acute Assessment and Plan: rate controlled and anticoagulated continue home meds (4) Spinal stenosis, lumbar region, without neurogenic claudication: Code(s): M48.061 - Spinal stenosis, lumbar region without neurogenic claudication Status: Acute Assessment and Plan: Tylenol as needed (5) TYRONE (obstructive sleep apnea): Code(s): G47.33 - Obstructive sleep apnea (adult) (pediatric) Status: Acute Assessment and Plan: CPAP as needed (6) Atherosclerotic heart disease of [place] coronary artery with other forms of angina pectoris: Code(s): I25.118 - Atherosclerotic heart disease of [place] coronary artery with other forms of angina pectoris Status: Acute Assessment and Plan: EKG reviewed no chest pain (7) Major depressive disorder, recurrent, moderate: Code(s): F33.1 - Major depressive disorder, recurrent, moderate Status: Acute Assessment and Plan: continue home meds stable follow-up in outpatient setting Plan DVT prophylaxis on rivaroxaban at home which is continued Code status full code DS: Summary Hospital Course Reason for hospitalization: Chief Complaint: ?nausea and vomiting Narrative: ?This is a 67-year-old female with past medical history significant for hypertension, GERD, atrial fibrillation rate controlled anticoagulated, obesity, obstructive sleep apnea, osteoarthritis of both shoulders status post bilateral arthroplasty,? [place]. patient has been working at the [employer] and at the end of the day she had an episode of diaphoresis with nausea vomiting epigastric abdominal pain lightheadedness presented to our emergency room for evaluation by ambulance after her coworkers called EMS. patient has been in her usual state of health prior to this denies any chest pain, PND, orthopnea, shortness of breath, cough, sputum production, no fevers, no rigors, no chills, no diarrhea she has been able to tolerate or her meals
[2022-10-05 17:18] LABS: Anion Gap 10 mmol/L (8-16); Blood Urea Nitrogen 16 mg/dL (7-17); Calcium 8.7 mg/dL (8.4-10.2); Carbon Dioxide 25 mmol/L (22-30); Chloride 100 mmol/L (98-107); Estimated CRCL calculation 73 ml/min; Estimated Glomerular Filt Rate > 60; Glucose 102 mg/dL (65-110); Potassium 3.7 mmol/L (3.4-5.0); Sodium 135 mmol/L (137-145)
[2022-10-05] MEDS: RIVAROXABAN 20 MG TABLET PO (17:18)
--- NOTE | 2022-10-06 11:06 | PC.NURSE ---
Patient called with questions regarding discharge medications. All questions answered. Patient aware to call with any further questions.
== END 2022-10-05 17:45 | disposition home or self-care (01) | DRG 392 ==
LOC: ANHED 10-02 01:51 → ANHIMU 10-02 03:19 → ANH3MEDSUR 10-03 06:01
PROVIDERS: Internal Medicine; Internal Medicine Gastroenterology; Admitting Provider Internal Medicine; Emergency Provider Emergency Medicine; PCP Family Medicine; Visit Provider Family Medicine
PROC: 0DJ08ZZ Inspection of Upper Intestinal Tract, Via Natural or Artificial Opening Endoscopic (ICD-10-PCS; CPT 43235; principal; 2022-10-04 14:45)
DX: R11.2 Nausea with vomiting, unspecified (principal); F33.1 Major depressive disorder, recurrent, moderate; K80.20 Calculus of gallbladder without cholecystitis without obstruction; R07.89 Other chest pain; K21.9 Gastro-esophageal reflux disease without esophagitis; I48.0 Paroxysmal atrial fibrillation; M48.061 Spinal stenosis, lumbar region without neurogenic claudication; G47.33 Obstructive sleep apnea (adult) (pediatric); I25.118 Atherosclerotic heart disease of native coronary artery with other forms of angina pectoris; I10 Essential (primary) hypertension; E87.6 Hypokalemia; E66.9 Obesity, unspecified; Z20.822 Contact with and (suspected) exposure to COVID-19; Z96.612 Presence of left artificial shoulder joint; Z96.611 Presence of right artificial shoulder joint; I25.2 Old myocardial infarction; Z79.899 Other long term (current) drug therapy
CPT/HCPCS: 36415; 71046; 74177; 76705; 80048; 80053; 80076; 81001; 82948; 83690; 83735; 84484; 85025; 85027; 85610; 85730; 93005; 96365; 96366; 96374; 96375; 96376; 99285; A9270; C9113; G0378; J0360; J0780; J2270; J2405; J2550; J2704; J3475; J3480; J7040; J7120; Q9967; U0003; U0005

== ENCOUNTER 2022-12-12 11:39 | Outpatient (CLI) | payer MEDICARE, OTHER, SELFPAY ==
[2022-12-12 14:54] LABS: Basophils Absolute Auto 0.1 K/mm3 (0.0-0.1); Basophils Percent Auto 1.3 % (0.2-1.2); Eosinophils Absolute Auto 0.3 K/mm3 (0-0.3); Eosinophils Percent Auto 3.6 % (0-4.4); Hematocrit 41.2 % (37.0-47.0); Hemoglobin 13.4 g/dL (12.0-15.0); Immature Granulocyte Absolute 0.01 K/mm3 (0.00-0.031); Immature Granulocyte Percent A 0.1 % (0-0.5); Lymphocytes Absolute Auto 1.83 K/mm3 (0.9-3.2); Lymphocytes Percent Auto 25.6 % (18.3-44.2); Mean Corpuscular HGB Conc 32.5 g/dl (32-36); Mean Corpuscular Hemoglobin 28.5 pg (26-34); Mean Corpuscular Volume 87.7 fl (80-100); Mean Platelet Volume 9.6 fl (7.4-10.4); Monocytes Absolute Auto 0.4 K/mm3 (0.1-0.6); Monocytes Percent Auto 6.1 % (2.6-8.5); Neutrophils Absolute Auto 4.5 K/mm3 (1.3-6.7); Neutrophils Percent Auto 63.3 % (45.5-73.1); Platelet Count Result 306 k/mm3 (150-375); Red Cell Distribution Width 12.6 % (11.5-14.5); White Blood Count 7.2 K/mm3 (4.5-10.0)
[2022-12-12 15:08] LABS: Albumin Level 4.2 g/dL (3.5-5.1); Estimated Glomerular Filt Rate > 60; Glucose 92 mg/dL (65-110)
[2022-12-12 15:17] LABS: Hemoglobin A1C 5.4 % (<5.7)
[2022-12-12 15:19] LABS: Urine Cotinine NEGATIVE
== END 2022-12-12 11:40 | disposition home or self-care (01) ==
PROVIDERS: PCP Family Medicine; Visit Provider Orthopaedic Surgery
DX: M16.11 Unilateral primary osteoarthritis, right hip (principal); Z01.818 Encounter for other preprocedural examination
CPT/HCPCS: 73502; 80307; 82040; 82565; 82947; 83036; 85025; 87081

== ENCOUNTER 2022-12-12 14:18 | Outpatient (CLI) | payer MEDICARE, OTHER, SELFPAY ==
--- NOTE | ~2022-12-12 | XR_ITS ---
XR hip RT 2V w AP pelvis DATE: 12/12/2022 14:46 INDICATION: Unilateral primary osteoarthritis of right hip TECHNIQUE: AP pelvis. AP and lateral views of right hip COMPARISON: None FINDINGS: There is dextroscoliosis and degenerative disc disease at L4-5 and especially L5-S1. No pelvic fracture or bone destruction. Normal alignment at the sacroiliac joints and pubic symphysi s. No pelvic fracture or bone destruction. There is asymmetric moderately severe right hip joint space narrowing and some spurring, consistent w ith right hip osteoarthritis. IMPRESSION: Moderately severe right hip osteoarthritis Lumbar dextroscoliosis and degenerative disc disease Reviewed, dictated and finalized at location [facility]
== END 2022-12-12 14:19 | disposition home or self-care (01) ==
PROVIDERS: PCP Family Medicine; Visit Provider Physician Assistant Surgical
DX: M16.11 Unilateral primary osteoarthritis, right hip (principal); M51.36 Other intervertebral disc degeneration, lumbar region
CPT/HCPCS: 73502

== ENCOUNTER 2023-01-08 11:45 | Observation (INO) | payer MEDICARE, SELFPAY ==
[2022-12-12 11:59] VITALS: BMI 39.2
--- NOTE | 2022-12-12 12:32 | PC.NURSE ---
Report to the Outpatient Waiting Room, entrance under the green pavilion located off [facility], at time __0600 on date __01/07/23 . Planned Procedure Time: 729 . Time changes happen often and if your time is changed the preop area will call you the afternoon before. - You and your visitor will be asked to self-screen and do not enter if you have any COVID symptoms. - Only one visitor is requested with a max of two and NO children visitors are allowed at this time. - The patient visitor may be requested to leave or wait in car when not with patient due to distancing restrictions. - A mask is optional within the hospital. Patients may have clear liquids (water, carbonated beverages, clear teas, apple juice) until 3 hours prior to surgery with a maximum of 20 ounces. - No food from midnight until time of surgery - Infants may have breast milk until 4 hours before surgery, formula 6 hours prior to surgery. - Children will be allowed to drink immediately following surgery. If applicable, please bring a bottle or sippy cup to assist with drinking. Juice, water, soda, and popsicles are readily available. For infants on formula, please bring formula the day of surgery. Pacifiers are allowed. Take the following medications with a SIP of water the morning of surgery: ____NONE Medications to discontinue per physician ____XARELTO 2-3 DAYS PRE OP PER DR DE LA CRUZ LAST DOSE 01/03/23. ALL VITAMINS AND SUPPLEMENTS 3 DAYS PRE OP LAST DOSE 01/03/23 Please no make-up, nail israeli, hairspray, perfume, deodorant, or body powder the day of surgery. No jewelry (including any body piercings) or valuables the day of surgery, leave them at home. Please take a shower or bath the night before, or the morning of, surgery with an antibacterial soap. Wear comfortable, loose fitting clothing. Children are encouraged to wear pajamas. - Jewelry must be removed prior to entering the operating room. Rings and piercings that are not removed may be cut off. - The hospital will not accept responsibility for valuables. - Please leave all valuables, including medications, at home the day of surgery. If you are going home after surgery, a licensed route driver salesperson must drive you home. - NO public transportation without another adult if you receive anesthesia. - We recommend that an adult stay with you for 24 hours following discharge. - We also recommend that you do not drive, make important decision, drink alcoholic beverages, or take any drugs that were not prescribed by your health care provider for at least 24 hours after your discharge time.. Follow any additional instructions given to you from your surgeon. If you or anyone in your household have experienced Covid symptoms in the past week, please notify your surgeon or the nurse liaison at the phone number below for possible testing. VERBAL AND WRITTEN instructions given to __PATIENT and asked if any additional questions and then verbalized understanding. Patient advised to call surgeon office or pre surgery nurse liaison [phone] if any additional questions.
[2022-12-12 12:47] VITALS: BP 143/78; PULSE 58; RESP 18; TEMP 36.6; O2SAT 98
--- NOTE | 2023-01-06 15:36 | WPDANESEPPF ---
Anes - Initial Pre Proc Eval Procedure: Operation Date: 01/07/23 07:30 Proposed Procedures p Right Total Hip Arthroplasty - Robert Meza MD Date/Time: 01/06/23 15:36 Surgeon: Robert Meza MD Pre Op Diagnosis: PRIMARY OA RIGHT HIP Patient Data Age: 67 Gender: F Height: 1.6 m Weight: 100.5 kg Last Vital Signs Temp 36.6 C 12/12/22 12:47 Pulse 58 L 12/12/22 12:47 Resp 18 12/12/22 12:47 BP 143/78 H 12/12/22 12:47 Pulse Ox 98 12/12/22 12:47 O2 Del Method Room Air 12/12/22 12:47 Allergies Allergy/AdvReac Type Severity Reaction Status Date / Time No Known Allergies Allergy Verified 01/07/23 06:49 Home Medications Medication Instructions Recorded Confirmed Type rivaroxaban 20 mg tablet (Xarelto) 20 mg PO DAILY@1700 #90 tabs 05/29/21 12/13/22 Rx metoprolol succinate 100 mg 100 mg PO DAILY 05/14/22 12/13/22 History tablet,extended release 24 hr atorvastatin 40 mg tablet 40 mg PO DAILY 09/17/22 12/13/22 History cholecalciferol (vitamin D3) 50 50 mcg PO DAILY 09/17/22 12/13/22 History mcg (2,000 unit) capsule celecoxib 200 mg capsule 200 mg PO DAILY 10/02/22 12/13/22 History lisinopril 10 mg tablet 10 mg PO DAILY 10/02/22 12/13/22 History magnesium oxide 400 mg (241.3 mg 400 mg PO QAM #30 tabs 10/05/22 12/13/22 Rx magnesium) tablet pantoprazole 20 mg tablet,delayed 20 mg PO QAM #30 tabs 10/05/22 12/13/22 Rx release (Protonix) cyanocobalamin (vitamin B-12) 3,000 mcg PO DAILY 12/12/22 12/13/22 History 3,000 mcg capsule tramadol 50 mg tablet 50 mg PO Q12H PRN pain #30 tabs 01/03/23 Rx Patient hx anesthesia problems: none Family hx anesthesia problems: none Results Review: All pre-operative results and documents have been reviewed as part of the pre-operative evaluation. [facility] Past Medical History Medical History (Updated 01/06/23 @ 15:41 by Gibson Lance MD) Asthma Atherosclerotic heart disease of [place] coronary artery with other forms of angina pectoris 6.25.20 normal cardiac cath Benign and innocent cardiac murmurs echocardiogram 6.2.20 normal valves Chronic low back pain Elevated troponin Essential hypertension Gastro-esophageal reflux disease with esophagitis History of cardiac disorder Hx of rheumatic fever Hypokalemia Major depressive disorder, recurrent, moderate sees psychiatrist Mild intermittent asthma, uncomplicated Mixed hyperlipidemia Obesity Old myocardial infarction TYRONE (obstructive sleep apnea) Paroxysmal atrial fibrillation 9.17.21 possible slow a fib/ atria flutter. ([facility]) 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 Rheumatic fever possible rheumatic fever as a teenager, no sequelae Spinal stenosis, lumbar region, without neurogenic claudication Status post proximal row carpectomy of wrist (~2008) Surgical History Surgical History H/O hand surgery has had 7 hand surgeries History of cardiac cath 6.24.20 normal coronaries/ sl diastolic dysfunction History of carpal tunnel release (~1998) History of reverse total replacement of shoulder joint History of shoulder replacement (~02/10/18) Presence of left artificial knee joint Presence of left artificial shoulder joint Presence of right artificial knee joint (12/08/17) Presence of right artificial shoulder joint S/p total knee replacement, bilateral (~05/05/18) Family History Family History Father Family history of primary malignant neoplasm of liver Family history of cardiovascular disease Family history of lung cancer Emphysema lung Family history of congenital heart disease Hypertension Pneumonia cause of , age 55 Acute myocardial infarction had heart disease, patient is unsure of what type. Grandparent Diabetes mellitus Mother Skin cancer Hypertension C
[2023-01-07] VITALS (15 sets, daily range): BP systolic 136–171; BP diastolic 58–120; PULSE 58–107; RESP 12–22; TEMP 36.2–37; O2SAT 94–100; BMI 38.0
[2023-01-07] MEDS: LACTATED RINGERS 1,000 ML 30 ML IV CONT (06:55)
[2023-01-07] MEDS: TRANEXAMIC ACID 1,000MG/ISO100 1,000 MG/100 ML BAG 200 MG IVPB (07:04)
[2023-01-07] MEDS: ACETAMINOPHEN 500 MG TABLET 1000 MG PO (07:04)
--- NOTE | 2023-01-07 07:25 | WPDHPUPDATE1 ---
History and Physical Update Update Date/Time: 01/07/23 07:25 History and Physical has been reviewed, including an updated exam of the patient. There are NO changes in the patient's condition. Risks, benefits, and alternatives have been discussed and questions answered. Patient agrees to proceed with procedure.
[2023-01-07] MEDS: ceFAZolin 2 GM/D5W 50 ML 2 GM/50 ML BAG IVPB ×3 (07:32→22:02)
[2023-01-07] MEDS: TRANEXAMIC ACID 1,000 MG/10 ML AMPUL 1000 MG IV PUSH (09:49)
[2023-01-07] MEDS: ONDANSETRON INJ 4 MG/2 ML VIAL IV PUSH ×3 (10:35→22:03)
[2023-01-07] MEDS: HALOPERIDOL LACTATE 5 MG/ML VIAL 1 MG IV PUSH (10:47)
[2023-01-07] MEDS: SODIUM CHLORIDE 0.9% IV 1,000 ML 125 ML IV CONT ×2 (12:48→23:21)
--- NOTE | 2023-01-07 13:04 | PCOTNOTE ---
Attempted OT evaluation, patient is nauseous at this time, requested to come back at later time for therapy. Will follow.
--- NOTE | 2023-01-07 17:03 | W.PM.PROC2 ---
Procedure Note - Detailed Date of Procedure 01/07/23 Pre-op Diagnosis PRIMARY OA RIGHT HIP Post-op Diagnosis Same Procedure Performed Right Total Hip Arthroplasty Surgeon Robert Meza MD Load Out Worker Sveta Rees PA-C Anesthesia General Findings Fair bone quality. Initial cup position at risk for impingement so anteversion decreased by 10?. Morbidly obese. Moderate blood loss. Wound closed with kapil to allow for drainage and prevention of wound hematoma with the Prevena wound VAC dressing. Description of Procedure The patient was given preoperative antibiotics. A general anesthetic was administered. The patient was carefully placed in the lateral decubitus position on the PEG board. The shoulders and hips were carefully positioned for component and leg length positioning reference. The hip was prepped and draped in the usual sterile fashion. A longitudinal incision was created over the posterior aspect of the greater trochanter. Careful dissection was brought down through the deep fascia with electrocautery. A minimally invasive optimized posterior approach to the hip was performed. The short external rotators and capsule were taken down in an L-shaped capsulotomy. The tissue was tagged for later repair using number 2 high strength suture. The femoral neck was measured and taken in situ. The femoral head was removed. The acetabulum was carefully exposed. The inferior capsule was released. The labrum was resected. The acetabulum was sequentially reamed to 1 size over the intended cup size. The cup was impacted into position with excellent press-fit. Typical anatomic landmarks, including the bony contact points as well as the inferior transverse acetabular ligament were used to confirm cup positioning with preoperative templating. The appearance will match the transverse acetabular ligament but appeared to be significantly anteverted. Thus, the trial liner was placed and after impingement was suggested during trialing, the cup was changed by 10? and a screw placed followed by placement of the neutral liner. Attention was turned to the femur, which was carefully exposed. The hip was reamed and then broached sequentially. Excellent press-fit was obtained with the broach. The hip was trialed. Measurements were utilized, including the lesser trochanter as well as the center of the femoral head and the tip of the trochanter, and excellent assessment of the offset and leg lengths were confirmed. The real component was impacted into position. Trialing confirmed appropriate leg length and offset with soft tissue balancing as well apparent feel of the leg, both at the knee and the heel. Soft tissues were assessed using the the iliotibial band. Reduction of the posterior capsule and external rotators were also used as a secondary assessment. The hip was copiously irrigated with pulsatile lavage antibiotic solution periodically throughout the procedure. The real components were then assembled and reduced. The hip was stable throughout typical maneuvers, including extension, external rotation to 70 degrees, the position of sleep as well as flexion to 90 degrees with internal rotation past 30 degrees. The shake test confirmed stability without impingement. Osteophytes were removed as necessary. The short external rotators and capsule were repaired back to the posterior trochanter through drill holes. The deep fascia was repaired with running number 2 Quill suture. The subcutaneous tissues were closed with interrupted 1. Vicryl suture followed by 2 0 Vicryl suture and akpil. Due to the severely obese soft tissue envelope, it was elected to leave the wound closed not water tight at this level to allow for some drainage and the occlusive dressing with suction was used. There were no complications. Meticulous hemostasis was maintained with the AquaMantys device. The patient was brought to the recovery room in stable condition. Physician
[2023-01-07] MEDS: SENNA/DOCUSATE SODIUM TABLET 2 TAB PO (17:14)
[2023-01-07] MEDS: RIVAROXABAN 10 MG TABLET PO (17:15)
[2023-01-07] MEDS: traMADol HCL (*CRX) 50 MG TABLET PO (20:07)
--- NOTE | ~2023-01-08 | XR_ITS ---
EXAMINATION: XR chest 1V portable 01/09/2023 16:55 INDICATION: Elevated troponin PROCEDURE: AP portable chest COMPARISON: Comparison to multiple prior studies sequentially, with oldest reviewed study dated 12/2019. FINDINGS: The lungs are clear. The cardiomediastinal silhouette is within normal limits. There are no pleural effusions. There is no pneumothorax suspected. There are bilateral shoulder arthroplasti es. IMPRESSION: 1: NO ACUTE CARDIOPULMONARY DISEASE. Reviewed, dictated and finalized at location A. DESIGN ENGINEER
--- NOTE | ~2023-01-08 | XR_ITS ---
EXAMINATION: XR hip RT min 2V DATE: 01/07/2023 11:21 INDICATION: Right hip arthroplasty. Postop. TECHNIQUE: 2 views of right hip were obtained. COMPARISON: Right hip radiographs 12/12/22 FINDINGS: There is a total right hip arthroplasty in near-anatomic alignment. No fracture. There is g as in the soft tissues, consistent with recent surgery. Skin kapil are noted. IMPRESSION: 1. Total right hip arthroplasty in near-anatomic alignment. Reviewed, dictated and finalized at location A. ATELIC CONSULTANT
[2023-01-08 01:45] VITALS: BP 160/68; PULSE 62; RESP 20; TEMP 36.7; O2SAT 99
[2023-01-08] MEDS: ONDANSETRON INJ 4 MG/2 ML VIAL IV PUSH ×4 (02:03→22:50)
[2023-01-08 06:03] VITALS: BP 162/77; PULSE 70; RESP 20; TEMP 36.9; O2SAT 98
[2023-01-08] MEDS: ceFAZolin 2 GM/D5W 50 ML 2 GM/50 ML BAG IVPB (06:08)
[2023-01-08 06:37] LABS: Basophils Percent Auto 0.1 % (0.2-1.2); Hematocrit 36.7 % (37.0-47.0); Hemoglobin 12.6 g/dL (12.0-15.0); Immature Granulocyte Absolute 0.12 K/mm3 (0.00-0.031); Immature Granulocyte Percent A 0.7 % (0-0.5); Lymphocytes Absolute Auto 1.21 K/mm3 (0.9-3.2); Lymphocytes Percent Auto 6.6 % (18.3-44.2); Mean Corpuscular HGB Conc 34.3 g/dl (32-36); Mean Corpuscular Hemoglobin 28.6 pg (26-34); Mean Corpuscular Volume 83.2 fl (80-100); Mean Platelet Volume 9.3 fl (7.4-10.4); Monocytes Absolute Auto 1.1 K/mm3 (0.1-0.6); Neutrophils Absolute Auto 15.9 K/mm3 (1.3-6.7); Neutrophils Percent Auto 86.6 % (45.5-73.1); Platelet Count Result 347 k/mm3 (150-375); Red Blood Count 4.41 M/mm3 (4.2-5.4); Red Cell Distribution Width 12.7 % (11.5-14.5); White Blood Count 18.3 K/mm3 (4.5-10.0)
[2023-01-08 06:53] LABS: Anion Gap 9 mmol/L (8-16); Blood Urea Nitrogen 9 mg/dL (7-17); Calcium 8.4 mg/dL (8.4-10.2); Carbon Dioxide 24 mmol/L (22-30); Chloride 100 mmol/L (98-107); Estimated CRCL calculation 98 ml/min; Estimated Glomerular Filt Rate > 60; Glucose 153 mg/dL (65-110); Potassium 2.8 mmol/L (3.4-5.0); Sodium 133 mmol/L (137-145)
--- NOTE | 2023-01-08 08:07 | WPDANESPN ---
Anes - Prog Note Post-Op Date/Time: 01/08/23 08:07 Cardiovascular status: normal Respiratory status: normal Airway patency: baseline Mental status: baseline Post-Op hydration status: other (severe n/v. talked to nurse about plan ) Vital Signs: Last Vital Signs Temp 36.9 C 01/08/23 06:03 Pulse 70 01/08/23 06:03 Resp 20 01/08/23 06:03 BP 162/77 H 01/08/23 06:03 Pulse Ox 98 01/08/23 06:03 O2 Del Method Room Air 01/07/23 20:00 Pain Score (VAS): 0 I/O: Intake & Output 01/07/23 01/08/23 01/08/23 23:59 07:59 15:59 Intake Total 250 50 Output Total 1000 1000 Balance -750 -950 Laboratory Tests 01/08/23 06:24 01/08/23 06:24 01/08/23 01/08/23 06:24 06:24 WBC 18.3 H RBC 4.41 Hgb 12.6 Hct 36.7 L MCV 83.2 MCH 28.6 MCHC 34.3 RDW 12.7 Plt Count 347 MPV 9.3 Immature Gran % (Auto) 0.7 H Neut % (Auto) 86.6 H Lymph % (Auto) 6.6 L [place] % (Auto) 6.0 Eos % (Auto) 0.0 Baso % (Auto) 0.1 L Lymph # (Auto) 1.21 [place] # (Auto) 1.1 H Eos # (Auto) 0.0 Baso # (Auto) 0.0 Abs Immat Gran (auto) 0.12 H Absolute Neuts (auto) 15.9 H Absolute Nucleated RBC 0.0 Nucleated RBC % 0.0 Sodium 133 L Potassium 2.8 L* Chloride 100 Carbon Dioxide 24 Anion Gap 9 BUN 9 D Creatinine 0.50 L Estim Creat Clear Calc 98 Estimated GFR > 60 Glucose 153 H Calcium 8.4 Post-procedural complaints: none Patient Feedback: Patient satisfied with anesthetic care.severe n/v. discussed plan with RN.
[2023-01-08] MEDS: SODIUM CHLORIDE 0.9% IV 1,000 ML 75 ML IV CONT (08:27)
[2023-01-08] MEDS: POTASSIUM CHLORIDE 20 MEQ TABLET 40 MEQ PO (08:28)
[2023-01-08] MEDS: lisinopriL 10 MG TABLET PO (08:28)
[2023-01-08] MEDS: CELECOXIB 200 MG CAPSULE PO (08:28)
[2023-01-08 08:29] VITALS: PULSE 70
[2023-01-08] MEDS: METOPROLOL SUCCINATE EXT REL 100 MG TABCR PO (08:29)
[2023-01-08] MEDS: ATORVASTATIN 40 MG TABLET PO (08:29)
[2023-01-08] MEDS: PANTOPRAZOLE SOD SESQUIHYDRATE 20 MG TAB PO (08:29)
[2023-01-08] MEDS: SENNA/DOCUSATE SODIUM TABLET 2 TAB PO ×2 (08:29→16:52)
[2023-01-08] MEDS: polyethylene glycoL 3350 17 GM POWD.PACK PO (08:29)
[2023-01-08] MEDS: traMADol HCL (*CRX) 50 MG TABLET PO ×2 (08:33→16:55)
--- NOTE | 2023-01-08 10:02 | PM.PNORT ---
Progress Note: A&P Assessment and Plan (1) Status post total hip replacement, right: Code(s): Z96.641 - Presence of right artificial hip joint Status: Acute (2) Postoperative nausea and vomiting: Code(s): R11.2 - Nausea with vomiting, unspecified; Z98.890 - Other specified postprocedural states Status: Acute Plan Postop day 1: Total hip arthroplasty. Significant nausea and vomiting post operatively. Critical potassium this AM. Hypokalemia and hyponatremia. Hospitalist consulted. Appreciate hospitalist consult. Significant bleeding from operative wound. Canister from Prevena was full this morning. Will discuss optimal plan with wound care today. Patient is typically on 20 mg Xerelto. Will continue 10 mg Xerelto for one week then resume 20 mg dose due to risk of bleeding. She will likely need a few extra days in the hospital. Will continue monitoring. Subjective Subjective Date/Time Seen: 01/08/23 10:02 Interval history: Patient resting in bed. Severe nausea. Holding emesis basin. Notes moderate pain. She had a difficult night. The suction on the bandage was alarming most of the night. No distal numbness or tingling. Review of Systems Review of Systems: All systems reviewed & are unremarkable except as noted in HPI and below Exam Narrative: Overweight 67 y/o female. Resting comfortably in bed. Wearing compression socks bilaterally. Dressing saturated with blood. Canister and tubing are full. Moderate swelling. No ecchymosis. No erythema. No hematoma. Range of motion limited due to pain. Calf nontender. Thigh nontender. Neurologic status intact. No varicosities. Distal pulses palpable. Objective Data Vital Signs Vital Signs: Vital Signs - 24 hr 01/07/23 10:35 01/07/23 10:50 01/07/23 11:05 Temperature Pulse Rate 107 H 70 71 Respiratory Rate 20 12 16 Blood Pressure 161/120 H 143/58 H 146/67 H Pulse Oximetry 97 96 97 Oxygen Delivery Room Air Room Air Room Air 01/07/23 11:20 01/07/23 11:35 01/07/23 11:50 Temperature Pulse Rate 70 60 62 Respiratory Rate 18 14 14 Blood Pressure 150/91 H 146/74 H 160/75 H Pulse Oximetry 97 97 94 Oxygen Delivery Room Air Room Air Room Air 01/07/23 12:05 01/07/23 14:02 01/07/23 12:30 Temperature 98.6 F Pulse Rate 64 67 Respiratory Rate 16 18 Blood Pressure 153/83 H 159/93 H Pulse Oximetry 98 100 Oxygen Delivery Room Air Room Air 01/07/23 12:45 01/07/23 13:15 01/07/23 12:00 Temperature 98.6 F 98.2 F Pulse Rate 62 65 Respiratory Rate 22 H 22 H Blood Pressure 154/75 H 153/72 H Pulse Oximetry 100 100 Oxygen Delivery Room Air 01/07/23 14:24 01/07/23 17:57 01/07/23 18:03 Temperature 97.9 F Pulse Rate 74 Respiratory Rate 18 Blood Pressure 170/80 H Pulse Oximetry 100 Oxygen Delivery Room Air 01/07/23 20:00 01/07/23 22:03 01/08/23 01:45 Temperature 98.1 F 98.1 F Pulse Rate 74 58 L 62 Respiratory Rate 18 20 20 Blood Pressure 171/73 H 160/68 H Pulse Oximetry 100 99 99 Oxygen Delivery Room Air 01/08/23 06:03 01/08/23 08:29 Temperature 98.4 F Pulse Rate 70 70 Respiratory Rate 20 Blood Pressure 162/77 H Pulse Oximetry 98 Oxygen Delivery Intake/Output Intake/Output: Intake & Output 01/05/23 01/06/23 01/07/23 01/08/23 23:59 23:59 23:59 23:59 Intake Total 1350 1050 Output Total 1000 1000 Balance 350 50 Meds/Results Medications: Active Medications Generic Name Dose Route Start Last Admin Trade Name Freq PRN Reason Stop Dose Admin Atorvastatin Calcium 40 mg 01/08/23 09:00 01/08/23 08:29 Atorvastatin 40 Mg Tablet PO 40 mg DAILY ISIDRO Administration Celecoxib 200 mg 01/08/23 08:00 01/08/23 08:28 Celecoxib 200 Mg Capsule PO 200 mg DAILY@0800 ISIDRO Administration Cyclobenzaprine HCl 10 mg 01/07/23 12:18 Cyclobenzaprine Hcl 10 Mg Tablet PO Q8H PRN Spasms Diphenhydramine HCl 25 mg 01/07/23 12:18 Diphenhydramine Hcl Inj 50 Mg/M
[2023-01-08 12:27] LABS: Magnesium 1.7 mg/dL (1.6-2.3); Potassium 3.1 mmol/L (3.4-5.0)
--- NOTE | 2023-01-08 12:45 | WPDCN ---
Assessment and Plan Assessment and plan (1) Primary osteoarthritis of right hip: Code(s): M16.11 - Unilateral primary osteoarthritis, right hip Status: Acute Assessment and Plan: Postoperative day 1 status post right total hip arthroplasty. Wound care, pain control, and DVT prophylaxis deferred to Orthopedic Service. (2) Postoperative nausea and vomiting: Code(s): R11.2 - Nausea with vomiting, unspecified; Z98.890 - Other specified postprocedural states Status: Acute Assessment and Plan: Patient has a history of nausea and vomiting with anesthesia. Continue Phenergan which seems to help much better than Zofran. (3) Hypokalemia: Code(s): E87.6 - Hypokalemia Status: Acute Assessment and Plan: Replace potassium and monitor. (4) Hyponatremia: Code(s): E87.1 - Hypo-osmolality and hyponatremia Status: Acute Assessment and Plan: She has received a total of 4820 mL of fluids via IV since yesterday and has been adequately resuscitated. Her sodium is dropping a bit thus will discontinue normal saline. She seems to be tolerating food and liquids now with the Phenergan. Monitor. (5) Essential hypertension: Code(s): I10 - Essential (primary) hypertension Status: Acute Assessment and Plan: Blood pressures have been running in the 140s to 160s systolic. Perhaps she has not been able to hold down her antihypertensives. Hopefully we can get her nausea under control and these medications can be resumed. Continue to monitor closely. (6) Obstructive sleep apnea on CPAP: Code(s): G47.33 - Obstructive sleep apnea (adult) (pediatric); Z99.89 - Dependence on other enabling machines and devices Status: Acute Assessment and Plan: CPAP will be provided for the patient to use while hospitalized. (7) Mixed hyperlipidemia: Code(s): E78.2 - Mixed hyperlipidemia Status: Acute Assessment and Plan: Continue statin and check LFTs in a.m. Plan Thank you for allowing us to participate in this patient's care. Please do not hesitate to contact us with any questions. HPI Data of Consult Date/Time: 01/08/23 12:45 Requesting Physician: Robert Meza MD Consult Narrative Reason for consult: Nausea, vomiting, hypokalemia. Narrative: This is a 67-year-old female with paroxysmal atrial fibrillation, hypertension, dyslipidemia, obstructive sleep apnea, GERD, and arthritis whom the hospitalist service has been consulted regarding nausea, vomiting, and hypokalemia. Patient provides the following history. She had an elective right total hip arthroplasty done yesterday per Dr. Meza and her pain is pretty well controlled. She has been up to the bedside commode frequently and is doing well with that. Unfortunately she has suffered from postoperative nausea and vomiting since her surgery yesterday and has not been able to keep down much. Her potassium has also been low. She was started on normal saline at a rate of 125 mL/hr last night and she remains on that at the time my evaluation. Zofran has not helped much and she was given Phenergan this afternoon with improvement her nausea and fact she was able to eat a bit this evening for the 1st time. She denies lightheadedness, dizziness, chest pain, shortness a breath, fever, chills, and sweats. No abdominal pain. Review of Systems Review of Systems: Twelve systems were reviewed and are negative except for as per HPI. [facility]LY [facility] Past Medical History Medical History (Updated 01/08/23 @ 23:18 by Cristina Solis PA-C) Asthma Atherosclerotic heart disease of [place] coronary artery with other forms of angina pectoris Normal cardiac catheterization in April 2020. Benign and innocent cardiac murmurs Normal bowel sound echo in April 2020. Chronic low back pain Secondary to spinal stenosis. Essential hypertension Gastroesophageal reflux disease Major depressive diso
--- NOTE | 2023-01-08 13:41 | PCPTNOTE ---
Attempted to see patient for PT, however during treatment wound care had to see patient for dressing change/ wound vac.
[2023-01-08] MEDS: POTASSIUM CHLORIDE INJ 40 MEQ in SODIUM CHLORIDE 0.9% IV 500 ML 130 MEQ IVPB (14:48)
[2023-01-08] MEDS: PROMETHAZINE HCL 25 MG/ML AMPUL 12.5 MG IV PUSH (14:49)
[2023-01-08 14:55] VITALS: BP 171/77; PULSE 73; RESP 18; TEMP 36.8; O2SAT 96
--- NOTE | 2023-01-08 16:14 | PCRCNOTE ---
Patient stated family will bring in her home unit tomorrow 01/09/23.
[2023-01-08] MEDS: RIVAROXABAN 10 MG TABLET PO (16:52)
[2023-01-08 19:06] LABS: Creatinine Urine 64.4 mg/dL
[2023-01-08 19:10] LABS: Sodium Urine Random 144 meq/L
[2023-01-08 19:29] LABS: Anion Gap 7 mmol/L (8-16); Blood Urea Nitrogen 8 mg/dL (7-17); Calcium 8.7 mg/dL (8.4-10.2); Carbon Dioxide 24 mmol/L (22-30); Chloride 100 mmol/L (98-107); Estimated CRCL calculation 98 ml/min; Estimated Glomerular Filt Rate > 60; Glucose 115 mg/dL (65-110); Magnesium 1.8 mg/dL (1.6-2.3); Potassium 3.5 mmol/L (3.4-5.0); Sodium 131 mmol/L (137-145)
[2023-01-08 20:00] VITALS: PULSE 72; RESP 20; O2SAT 95
[2023-01-08 20:51] VITALS: BP 153/79; PULSE 72; RESP 20; TEMP 36.2; O2SAT 95
[2023-01-09] MEDS: traMADol HCL (*CRX) 50 MG TABLET PO ×2 (00:18→12:53)
[2023-01-09] MEDS: PROMETHAZINE HCL 25 MG/ML AMPUL 12.5 MG IV PUSH ×3 (03:05→22:26)
[2023-01-09 05:39] VITALS: BP 152/82; PULSE 72; RESP 18; TEMP 36.6; O2SAT 95
[2023-01-09 06:55] LABS: Hematocrit 36.4 % (37.0-47.0); Hemoglobin 12.6 g/dL (12.0-15.0); Mean Corpuscular HGB Conc 34.6 g/dl (32-36); Mean Corpuscular Hemoglobin 29.1 pg (26-34); Mean Corpuscular Volume 84.1 fl (80-100); Mean Platelet Volume 9.5 fl (7.4-10.4); Platelet Count Result 333 k/mm3 (150-375); Red Blood Count 4.33 M/mm3 (4.2-5.4); Red Cell Distribution Width 12.9 % (11.5-14.5); White Blood Count 16.1 K/mm3 (4.5-10.0)
[2023-01-09 07:05] LABS: Anion Gap 7 mmol/L (8-16); Blood Urea Nitrogen 7 mg/dL (7-17); Calcium 9.1 mg/dL (8.4-10.2); Carbon Dioxide 24 mmol/L (22-30); Chloride 96 mmol/L (98-107); Estimated CRCL calculation 97 ml/min; Estimated Glomerular Filt Rate > 60; Glucose 118 mg/dL (65-110); Sodium 127 mmol/L (137-145)
--- NOTE | 2023-01-09 07:47 | PCOTNOTE ---
The OT treatment was unable to be completed this date.
[2023-01-09 08:39] VITALS: O2SAT 99
--- NOTE | 2023-01-09 09:08 | PCPTNOTE ---
Attempted to see patient for PT, however patient was eating breakfast.
[2023-01-09] MEDS: POTASSIUM CHLORIDE 20 MEQ PACKET (FOR LIQUID) 60 MEQ PO (10:00)
[2023-01-09] MEDS: lisinopriL 10 MG TABLET PO (10:01)
[2023-01-09 10:02] VITALS: PULSE 72
[2023-01-09] MEDS: PANTOPRAZOLE SOD SESQUIHYDRATE 20 MG TAB PO (10:02)
[2023-01-09] MEDS: METOPROLOL SUCCINATE EXT REL 100 MG TABCR PO (10:02)
[2023-01-09] MEDS: ATORVASTATIN 40 MG TABLET PO (10:02)
[2023-01-09] MEDS: CELECOXIB 200 MG CAPSULE PO (10:02)
[2023-01-09] MEDS: polyethylene glycoL 3350 17 GM POWD.PACK PO (10:02)
[2023-01-09] MEDS: SENNA/DOCUSATE SODIUM TABLET 2 TAB PO ×2 (10:02→16:58)
--- NOTE | 2023-01-09 12:54 | PM.PNORT ---
Progress Note: A&P Assessment and Plan (1) Status post total hip replacement, right: Code(s): Z96.641 - Presence of right artificial hip joint Status: Acute (2) Postoperative nausea and vomiting: Code(s): R11.2 - Nausea with vomiting, unspecified; Z98.890 - Other specified postprocedural states Status: Acute Plan Postop day 2: Total hip arthroplasty. Significant nausea and vomiting post operatively. Improving today, however she is still nauseous. Hypokalemia and hyponatremia. Labs have not improved much this AM. Appreciate hospitalist consult. Wound care has removed the provena dressing and applied a wound vac. Dressing is dry and intact with very little bloody drainage in wound vac. Patient is typically on 20 mg Xerelto. Will continue 10 mg Xerelto for one week then resume 20 mg dose due to risk of bleeding. Pain is well controlled and she is working well with physical therapy. She will likely need a few extra days in the hospital. Will continue monitoring. Subjective Subjective Date/Time Seen: 01/09/23 12:54 Interval history: Patient resting comfortably in bed. Notes she is feeling better today. She is still having nausea. Pain from hip is controlled. Review of Systems Review of Systems: All systems reviewed & are unremarkable except as noted in HPI and below Exam Narrative: Overweight 67 y/o female. Resting comfortably in bed. Wearing compression socks bilaterally. Dressing dry and intact. Little drainage from wound vac. Moderate swelling. No ecchymosis. No erythema. No hematoma. Range of motion limited due to pain. Calf nontender. Thigh nontender. Neurologic status intact. No varicosities. Distal pulses palpable. Objective Data Vital Signs Vital Signs: Vital Signs - 24 hr 01/08/23 14:55 01/08/23 20:51 01/08/23 20:00 Temperature 98.2 F 97.1 F L Pulse Rate 73 72 72 Respiratory Rate 18 20 20 Blood Pressure 171/77 H 153/79 H Pulse Oximetry 96 95 95 Oxygen Delivery Room Air 01/09/23 05:39 01/09/23 08:39 01/09/23 10:02 Temperature 97.9 F Pulse Rate 72 72 Respiratory Rate 18 Blood Pressure 152/82 H Pulse Oximetry 95 99 Oxygen Delivery Room Air 01/09/23 09:45 Temperature Pulse Rate Respiratory Rate Blood Pressure Pulse Oximetry Oxygen Delivery Room Air Intake/Output Intake/Output: Intake & Output 01/06/23 01/07/23 01/08/23 01/09/23 23:59 23:59 23:59 23:59 Intake Total 2350 2710 200 Output Total 1000 2100 500 Balance 1350 610 -300 Meds/Results Medications: Active Medications Generic Name Dose Route Start Last Admin Trade Name Freq PRN Reason Stop Dose Admin Atorvastatin Calcium 40 mg 01/08/23 09:00 01/09/23 10:02 Atorvastatin 40 Mg Tablet PO 40 mg DAILY ISIDRO Administration Celecoxib 200 mg 01/08/23 08:00 01/09/23 10:02 Celecoxib 200 Mg Capsule PO 200 mg DAILY@0800 [facility] Administration Cyclobenzaprine HCl 10 mg 01/07/23 12:18 Cyclobenzaprine Hcl 10 Mg Tablet PO Q8H PRN Spasms Diphenhydramine HCl 25 mg 01/07/23 12:18 Diphenhydramine Hcl Inj 50 Mg/Ml Vial IV PUSH Q6H PRN Itching Lisinopril 10 mg 01/08/23 09:00 01/09/23 10:01 Lisinopril 10 Mg Tablet PO 10 mg DAILY [facility] Administration Metoprolol Succinate 100 mg 01/08/23 09:00 01/09/23 10:02 Metoprolol Succinate Ext Rel 100 Mg Tabcr PO 100 mg DAILY [facility] Administration Naloxone HCl 0.1 mg 01/07/23 12:18 Naloxone Hcl 0.4 Mg/Ml Vial IV PUSH Q2M PRN Opiate Reversal Oxycodone HCl 5 mg 01/07/23 12:18 Oxycodone Hcl (*Crx) 5 Mg Tab Ir PO Q4H PRN Pain Rated 4-6 Oxycodone HCl 10 mg 01/07/23 12:18 Oxycodone Hcl (*Crx) 5 Mg Tab Ir PO Q4H PRN Pain Rated 7-10 Pantoprazole Sodium 20 mg 01/08/23 09:00 01/09/23 10:02 Pantoprazole Sod Sesquihydrate 20 Mg Tab PO 20 mg QAM [facility] Administration Polyethylene Glycol 17 gm 01/08/23 09:00 01/09/23 10:02 Polye
[2023-01-09 14:19] VITALS: BP 160/98; PULSE 77; RESP 16; TEMP 36.8; O2SAT 98
--- NOTE | 2023-01-09 15:29 | PM.IMPN ---
Progress Note: A&P Assessment and Plan (1) Primary osteoarthritis of right hip: Code(s): M16.11 - Unilateral primary osteoarthritis, right hip Status: Acute Assessment and Plan: Postoperative day 1 status post right total hip arthroplasty. Wound care, pain control DVT prophylaxis deferred to Orthopedic Service. (2) Postoperative nausea and vomiting: Code(s): R11.2 - Nausea with vomiting, unspecified; Z98.890 - Other specified postprocedural states Status: Acute Assessment and Plan: Patient has a history of nausea and vomiting with anesthesia. Continue Phenergan which seems to help much better than Zofran. Increased Protonix to 40 mg twice daily Due to patient being a 67-year-old female with nausea vomiting indigestion will order troponin. (3) Hypokalemia: Code(s): E87.6 - Hypokalemia Status: Deleted Assessment and Plan: Replace potassium and monitor. (4) Hyponatremia: Code(s): E87.1 - Hypo-osmolality and hyponatremia Status: Acute Assessment and Plan: She has received a total of 4820 mL of fluids via IV since yesterday and has been adequately resuscitated. Her sodium is dropping a bit thus will discontinue normal saline. She seems to be tolerating food and liquids now with the Phenergan. Monitor. FENA 0.9 indicating prerenal causes. (5) Essential hypertension: Code(s): I10 - Essential (primary) hypertension Status: Acute Assessment and Plan: Blood pressures have been running in the 140s to 160s systolic. Perhaps she has not been able to hold down her antihypertensives. Hopefully we can get her nausea under control and these medications can be resumed. Continue to monitor closely. add hydralazine 10 mg P.r.n. every 8 hours if systolic blood pressure over 180. (6) Obstructive sleep apnea on CPAP: Code(s): G47.33 - Obstructive sleep apnea (adult) (pediatric); Z99.89 - Dependence on other enabling machines and devices Status: Acute Assessment and Plan: CPAP will be provided for the patient to use while hospitalized. (7) Mixed hyperlipidemia: Code(s): E78.2 - Mixed hyperlipidemia Status: Acute Assessment and Plan: Continue statin and check LFTs in a.m. Subjective Date/time seen: 01/09/23 15:29 Interval history: Patient doing well postoperatively. Patient does have some right hip pain but is managing. Patient had some postop nausea vomiting that is slowly improving. Patient has not vomited yet today but has had some nausea. Patient receiving Phenergan for the nausea. Patient does have some indigestion associated with the nausea vomiting. Patient states that she has had postoperative nausea vomiting in the past. Patient denies chest pain, shortness a breath, fever, lower extremity edema and diarrhea. Review of Systems Review of Systems: All systems reviewed & are unremarkable except as noted in HPI and below Exam Narrative: GENERAL: Comfortable, no acute distress HENMT: moist mucous membranes EYES: EOM intact b/l NECK: no lymphadenopathy RESPIRATORY: clear to auscultation CARDIO: RRR GI: soft, nontender, bowel sounds present SKIN: no rashes EXTREMITIES: Right hip Tegaderm intact and dry with minimal bruising and swelling; no edema, redness or tenderness Objective Data Vital Signs Vital Signs: Vital Signs - 24 hr 01/08/23 20:51 01/08/23 20:00 01/09/23 05:39 Temperature 97.1 F L 97.9 F Pulse Rate 72 72 72 Respiratory Rate 20 20 18 Blood Pressure 153/79 H 152/82 H Pulse Oximetry 95 95 95 Oxygen Delivery Room Air 01/09/23 08:39 01/09/23 10:02 01/09/23 09:45 Temperature Pulse Rate 72 Respiratory Rate Blood Pressure Pulse Oximetry 99 Oxygen Delivery Room Air Room Air Intake/Output Intake/Output: Intake & Output 01/06/23 01/07/23 01/08/23 01/09/23 23:59 23:59 23:59 23:59 Intake Total 2466 6643 20
[2023-01-09 16:32] LABS: Troponin I 0.105 ng/mL (0.000-0.034)
--- NOTE | 2023-01-09 16:36 | ECG_ITS ---
Measurements Intervals [place] Rate: 70 P: 24 WV: 107 QRS: -45 QRSD: 114 T: -26 QT: 433 QTc: 469 Interpretive Statements SINUS RHYTHM WITH SHORT [place] INTERVAL PATTERN CONSISTENT WITH PULMONARY DISEASE INCOMPLETE RIGHT BUNDLE BRANCH BLOCK [90+ ms QRS DURATION, TERMINAL R IN V1/V2, 40+ ms S IN I/aVL/V4/V5/V6] LEFT ANTERIOR FASCICULAR BLOCK T-WAVE INVERSION INFERIORLY AND 2 DEGREE ANTERIORLY, OLD COMPARED TO ECG 10/02/2022 20:20:57 NO SIGNIFICANT CHANGE Electronically Signed On 01-09-2023 20:12:38 MANAGER REPORT by Ashley Urbina M.D.
[2023-01-09] MEDS: RIVAROXABAN 10 MG TABLET PO (16:58)
[2023-01-09] MEDS: ASPIRIN 81 MG CHEWABLE TABLET PO (17:47)
[2023-01-09 19:59] VITALS: BP 140/77; PULSE 82; RESP 18; TEMP 36.6; O2SAT 97
[2023-01-09 20:00] VITALS: PULSE 75
[2023-01-09] MEDS: PANTOPRAZOLE 40 MG TABLET PO (20:29)
[2023-01-09 22:17] LABS: Troponin I 0.074 ng/mL (0.000-0.034)
--- NOTE | 2023-01-09 23:55 | PCRCNOTE ---
Pt stated that her cpap machine did not get brought in today. Pt doesn't want to wear hospital machine. Encouraged pt to have her home machine brought in tomorrow. Pt agrees. Pt in no apparent distress.
[2023-01-10] VITALS (8 sets, daily range): BP systolic 115–153; BP diastolic 70–83; PULSE 67–78; RESP 18–20; TEMP 36.1–36.6; O2SAT 97–98
--- NOTE | 2023-01-10 06:00 | ECG_ITS ---
Measurements Intervals [place] Rate: 68 P: 60 DE: 148 QRS: -45 QRSD: 114 T: -31 QT: 441 QTc: 471 Interpretive Statements SINUS RHYTHM PATTERN CONSISTENT WITH PULMONARY DISEASE LEFT ANTERIOR FASCICULAR BLOCK [QRS AXIS <= -45, QR IN I, RS IN II] VOLTAGE CRITERIA FOR LVH [MEETS CRITERIA IN ONE OF: R(aVL), S(V1), R(V5), R(V5/V6)+S(V1)] MINIMAL ST DEPRESSION [0.025+ mV ST DEPRESSION] COMPARED TO ECG 01/09/2023 17:00:48 NO SIGNIFICANT CHANGE Electronically Signed On 01-10-2023 15:35:02 WAX MOLDER by Jose Evans M.D.
[2023-01-10 06:57] LABS: Hemoglobin 12.4 g/dL (12.0-15.0); Mean Corpuscular HGB Conc 34.4 g/dl (32-36); Mean Corpuscular Hemoglobin 28.5 pg (26-34); Mean Corpuscular Volume 82.8 fl (80-100); Mean Platelet Volume 9.3 fl (7.4-10.4); Platelet Count Result 345 k/mm3 (150-375); Red Blood Count 4.35 M/mm3 (4.2-5.4); Red Cell Distribution Width 12.8 % (11.5-14.5); White Blood Count 13.2 K/mm3 (4.5-10.0)
[2023-01-10] MEDS: PROMETHAZINE HCL 25 MG/ML AMPUL 12.5 MG IV PUSH (06:57)
[2023-01-10 07:29] LABS: Alanine Aminotransferase 20 U/L (6-35); Albumin Level 3.8 g/dL (3.5-5.1); Alkaline Phosphatase 90 U/L (38-126); Anion Gap 6 mmol/L (8-16); Aspartate Amino Transferase 35 U/L (14-36); Blood Urea Nitrogen 12 mg/dL (7-17); Calcium 8.8 mg/dL (8.4-10.2); Carbon Dioxide 25 mmol/L (22-30); Chloride 100 mmol/L (98-107); Estimated CRCL calculation 81 ml/min; Estimated Glomerular Filt Rate > 60; Glucose 104 mg/dL (65-110); Potassium 3.6 mmol/L (3.4-5.0); Sodium 131 mmol/L (137-145)
--- NOTE | 2023-01-10 08:09 | PM.PNORT ---
Progress Note: A&P Assessment and Plan (1) Status post total hip replacement, right: Code(s): Z96.641 - Presence of right artificial hip joint Status: Acute (2) Postoperative nausea and vomiting: Code(s): R11.2 - Nausea with vomiting, unspecified; Z98.890 - Other specified postprocedural states Status: Acute Plan Postop day 3: Total hip arthroplasty. Significant nausea and vomiting post operatively. Continues to improve today. Medications are helping. She is able to keep food down but still has nausea. Hypokalemia and hyponatremia improving. Appreciate hospitalist consult. Okay for discharge once medically cleared. Wound vac with minimal drainage. This has not changed since yesterday. Wound care will see her today. We may be able to put a normal dressing on and discharge her without a wound vac. Patient is typically on 20 mg Xerelto. Will continue 10 mg Xerelto for one week post op then resume 20 mg dose due to risk of bleeding. Pain is well controlled and she is working well with physical therapy. Okay for discharge once she is medically cleared and wound care has seen her. Subjective Subjective Date/Time Seen: 01/10/23 08:09 Interval history: Nausea improving with medications. Minimal pain. Doing well with formal physical therapy. States she is starting to feel better. She is still nauseous but she is able to keep food down. Review of Systems Review of Systems: All systems reviewed & are unremarkable except as noted in HPI and below Exam Narrative: Overweight 67 y/o female. Resting comfortably in bed. Wearing compression socks bilaterally. Dressing dry and intact. Little drainage from wound vac. This has not changed since yesterday. Moderate swelling. No ecchymosis. No erythema. No hematoma. Range of motion limited due to pain. Calf nontender. Thigh nontender. Neurologic status intact. No varicosities. Distal pulses palpable. Objective Data Vital Signs Vital Signs: Vital Signs - 24 hr 01/09/23 08:39 01/09/23 10:02 01/09/23 09:45 Temperature Pulse Rate 72 Respiratory Rate Blood Pressure Pulse Oximetry 99 Oxygen Delivery Room Air Room Air 01/09/23 14:19 01/09/23 19:59 01/09/23 20:00 Temperature 98.2 F 97.8 F Pulse Rate 77 82 Respiratory Rate 16 18 Blood Pressure 160/98 H 140/77 Pulse Oximetry 98 97 Oxygen Delivery Room Air 01/09/23 20:00 01/10/23 00:00 01/10/23 04:00 Temperature Pulse Rate 75 68 67 Respiratory Rate Blood Pressure Pulse Oximetry Oxygen Delivery 01/10/23 05:54 Temperature 97.8 F Pulse Rate 75 Respiratory Rate 18 Blood Pressure 153/83 H Pulse Oximetry 97 Oxygen Delivery Intake/Output Intake/Output: Intake & Output 01/07/23 01/08/23 01/09/23 01/10/23 23:59 23:59 23:59 23:59 Intake Total 2350 2710 1300 550 Output Total 1000 2100 1100 Balance 1350 610 200 550 Meds/Results Medications: Active Medications Generic Name Dose Route Start Last Admin Trade Name Freq PRN Reason Stop Dose Admin Aspirin 81 mg 01/10/23 08:00 Aspirin 81 Mg Chewable Tablet PO DAILY@0800 [facility] Atorvastatin Calcium 40 mg 01/08/23 09:00 01/09/23 10:02 Atorvastatin 40 Mg Tablet PO 40 mg DAILY [facility] Administration Celecoxib 200 mg 01/08/23 08:00 01/09/23 10:02 Celecoxib 200 Mg Capsule PO 200 mg DAILY@0800 [facility] Administration Cyclobenzaprine HCl 10 mg 01/07/23 12:18 Cyclobenzaprine Hcl 10 Mg Tablet PO Q8H PRN Spasms Diphenhydramine HCl 25 mg 01/07/23 12:18 Diphenhydramine Hcl Inj 50 Mg/Ml Vial IV PUSH Q6H PRN Itching Hydralazine HCl 10 mg 01/09/23 15:34 Hydralazine Hcl 20 Mg/Ml Vial IV PUSH Q8H PRN Blood Pressure - High Lisinopril 10 mg 01/08/23 09:00 01/09/23 10:01 Lisinopril 10 Mg Tablet PO 10 mg DAILY [facility] Administration Metoprolol Succinate 100 mg 01/08/23 09:00 01/09/23 10:02 Metoprolol Succinate Ext Rel 100 Mg Tabcr
--- NOTE | 2023-01-10 08:45 | PM.IMPN ---
Progress Note: A&P Assessment and Plan (1) Primary osteoarthritis of right hip: Code(s): M16.11 - Unilateral primary osteoarthritis, right hip Status: Acute Assessment and Plan: Postoperative day 1 status post right total hip arthroplasty. Wound care, pain control DVT prophylaxis deferred to Orthopedic Service. (2) Postoperative nausea and vomiting: Code(s): R11.2 - Nausea with vomiting, unspecified; Z98.890 - Other specified postprocedural states Status: Acute Assessment and Plan: Patient has a history of nausea and vomiting with anesthesia. Continue Phenergan which seems to help much better than Zofran. Increased Protonix to 40 mg twice daily Due to patient being a 67-year-old female with nausea vomiting indigestion will order troponin. Troponin elevated at 0.105. Trend troponin, consult cardiology, EKG similar to previous EKG, CXR no acute cardiopulmonary process Talked to Dr. Peng on the phone and discussed case with her. She was sent the new EKG and old EKG and she did not believe there was much change. Stated she was see the patient in the am. Serial EKG's trending down Patient does have cardiac hx with catheterization with no stent placement and stress and stress test done in 2019. 01/10/23 patient seen by per assessment nurse and elevated troponins not to thought to be cardiac related but more due to orthopedic surgery. Patient okay to be discharged and sent home on p.o. anti nausea medication. (3) Hypokalemia: Code(s): E87.6 - Hypokalemia Status: Deleted Assessment and Plan: Replace potassium and monitor. (4) Hyponatremia: Code(s): E87.1 - Hypo-osmolality and hyponatremia Status: Acute Assessment and Plan: She has received a total of 4820 mL of fluids via IV since yesterday and has been adequately resuscitated. Her sodium is dropping a bit thus will discontinue normal saline. She seems to be tolerating food and liquids now with the Phenergan. Monitor. FENA 0.9 indicating prerenal causes. (5) Essential hypertension: Code(s): I10 - Essential (primary) hypertension Status: Acute Assessment and Plan: add hydralazine 10 mg P.r.n. every 8 hours if systolic blood pressure over 180. (6) Obstructive sleep apnea on CPAP: Code(s): G47.33 - Obstructive sleep apnea (adult) (pediatric); Z99.89 - Dependence on other enabling machines and devices Status: Acute Assessment and Plan: CPAP will be provided for the patient to use while hospitalized. (7) Mixed hyperlipidemia: Code(s): E78.2 - Mixed hyperlipidemia Status: Acute Assessment and Plan: Continue statin and check LFTs in a.m. Time Spent With Patient Time with patient: 25 - 35 minutes Subjective Date/time seen: 01/10/23 08:45 Interval history: Patient resting comfortably in bed she states her nausea vomiting have been improving. Patient no longer having chest pain/indigestion. Patient has no new complaints at this time. Patient can be discharged from medical standpoint. Exam Narrative: GENERAL: Comfortable, no acute distress HENMT: moist mucous membranes EYES: EOM intact b/l NECK: no lymphadenopathy RESPIRATORY: clear to auscultation CARDIO: RRR GI: soft, nontender, bowel sounds present SKIN: no rashes EXTREMITIES: Right hip Tegaderm intact and dry with minimal bruising and swelling; no edema, redness or tenderness Objective Data Vital Signs Vital Signs: Vital Signs - 24 hr 01/09/23 10:02 01/09/23 09:45 01/09/23 14:19 Temperature 98.2 F Pulse Rate 72 77 Respiratory Rate 16 Blood Pressure 160/98 H Pulse Oximetry 98 Oxygen Delivery Room Air 01/09/23 19:59 01/09/23 20:00 01/09/23 20:00 Temperature 97.8 F Pulse Rate 82 75 Respiratory Rate 18 Blood Pressure 140/77 Pulse Oximetry 97 Oxygen Delivery Room Air 01/10/23 00:00 01/10/23 04:00 01/10/23
--- NOTE | 2023-01-10 09:00 | PM.CNCAR ---
Assessment and Plan Assessment and plan (1) Troponin level elevated: Code(s): R77.8 - Other specified abnormalities of plasma proteins Status: Acute Plan this is a 67-year-old patient with paroxysmal atrial fibrillation admitted to the hospital for elective knee replacement which occurred upon admission. She had some postoperative nausea which prompted a series of troponin levels to be drawn. The results are as described above. It is important that this patient is known not to have any coronary artery disease and so I do not have any reason in my opinion to be concerned that she now has an ischemic problem. She has a history of atrial fibrillation she is in sinus rhythm and is appropriately followed in our office by my partner, Dr. Cleaning. There are no cardiac recommendations to make regarding these troponins her management is per the primary team and she can be discharged when they deem appropriate. Jose Evans MD [facility] History of Present Illness History of Present Illness Consult date/time: 01/10/23 09:00 Reason For Visit: PRIMARY OA RIGHT HIP Narrative: this is a 67-year-old lady I am seeing this morning at the request of the hospitalist because of troponin levels that were sampled and were found to be elevated. The patient is comfortable this morning and offers no significant cardiovascular complaints. She has a history of atrial fibrillation and follows in our office with Dr. Chavo lozano. It is important that the chart documents this lady is known not to have coronary artery disease by virtue of the fact that she has had 2 previous negative coronary angiograms. She was admitted to this hospital as an outpatient for right hip replacement which took place uneventfully. After surgery she had difficulty with quite a bit of nausea which was apparently felt to be a post anesthetic complication and that was treated by the hospitalist. Because of that a series of troponin levels were done which were flat and just out of normal range. The patient's electrocardiogram shows sinus rhythm with a left anterior superior hemiblock. It is not remarkable for any acute changes of injury or ischemia and is unchanged from electrocardiograms that are in this patient's chart from the past. The patient offers no complaints at this time she is hoping to be discharged home either today or tomorrow. Review of Systems Constitutional: Constitutional: Reports no additional constitutional complaints Eyes: Eyes: Reports no additional eye complaints ENT: Reports system reviewed and no additional complaints, except as documented Cardiovascular: Cardiovascular: Reports no additional cardiovascular complaints Respiratory: Respiratory: Reports no additional respiratory complaints Gastrointestinal: Gastrointestinal: Reports as per HPI and Reports nausea Musculoskeletal: Musculoskeletal: Reports no additional musculoskeletal complaints Integumentary/Breasts: Skin/Breast: Reports system reviewed and no additional complaints, except as docu Neurologic: Reports system reviewed and no additional complaints, except as documented Endocrine: Endocrine: Reports no additional endocrine complaints Hematologic/Lymphatic: Hematologic/Lymphatic: Reports no additional hematologic/lymphatic complaints Allergic/Immunologic: Allergic/Immunologic: Reports no additional allergic/immunologic complaints [facility] Past Medical History Medical History (Updated 01/10/23 @ 09:06 by Jose Evans MD) Arthritis of right hip Asthma Atherosclerotic heart disease of [place] coronary artery with other forms of angina pectoris Normal cardiac catheterization in April 2020. Atypical chest pain Benign and innocent cardiac murmurs Normal bowel sound echo in April 2020. Biliary colic Chronic low back pain Secondary to spinal stenosis. Essential hypertension History of menopause Hx of rheumatic fever possible rheumatic fever as a teenager, no sequelae
[2023-01-10] MEDS: traMADol HCL (*CRX) 50 MG TABLET PO (10:35)
[2023-01-10] MEDS: METOPROLOL SUCCINATE EXT REL 100 MG TABCR PO (10:36)
[2023-01-10] MEDS: SENNA/DOCUSATE SODIUM TABLET 2 TAB PO ×2 (10:37→17:50)
[2023-01-10] MEDS: ASPIRIN 81 MG CHEWABLE TABLET PO (10:37)
[2023-01-10] MEDS: ATORVASTATIN 40 MG TABLET PO (10:37)
[2023-01-10] MEDS: CELECOXIB 200 MG CAPSULE PO (10:37)
[2023-01-10] MEDS: lisinopriL 10 MG TABLET PO (10:37)
[2023-01-10] MEDS: PANTOPRAZOLE 40 MG TABLET PO (10:37)
[2023-01-10] MEDS: polyethylene glycoL 3350 17 GM POWD.PACK PO (10:38)
--- NOTE | 2023-01-10 15:24 | PM.DS ---
DS: Admitting Diagnosis Discharge Date 01/10/23 Admitting Diagnosis OA Right hip DS: Discharge Diagnosis Discharge Diagnosis (1) Status post total hip replacement, right: Code(s): Z96.641 - Presence of right artificial hip joint Status: Acute Assessment and Plan: Postop day 1: Right Total hip arthroplasty. Patient had postoperative bleeding from her wound, hypokalemia, hyponatremia, and severe nausea and vomiting postoperatively. These have all improved. Pain manageable with pain medication. No numbness or tingling. Overall the hip is performing well and she did well with formal physical therapy. Small amount of drainage from wound today. Spoke with wound care nurse who removed wound vac and placed a surgical dressing that can stay intact for 5 days unless saturated. Will add another wound check appointment for Friday01/13/23 at 11:00. We had a lengthy discussion regarding postoperative wound care, limitations, expectations, and exercises. Patient shows good understanding. Patient has had initial physical therapy and is tolerating it well. DVT prophylaxis: Xarelto 10 mg daily for one week post op. May resume 20 mg daily dose on 01/14/23. Pain medication: Percocet. Patient has followup appointment with Dr. Meza on Friday01/13/23 and in 3 weeks DS: Summary Hospital Course Reason for hospitalization: Total hip arthroplasty Hospital Course: Total hip arthroplasty complicated by postoperative bleeding, hypokalemia, hyponatremia, and severe nausea and vomiting. These are resolving. Status at Discharge Functional status at discharge: uses cane/walker Overall status at discharge: patient is progressing back to baseline Time Spent with Patient Time attestation: Total time spent providing and/or coordinating discharge services: Exam Narrative: Overweight 67 y/o female. Resting comfortably in bed. Wearing compression socks bilaterally. Dressing dry and intact with small amount of drainage. Mild swelling. No ecchymosis. No erythema. No hematoma. Range of motion limited due to pain. Calf nontender. Thigh nontender. Neurologic status intact. No varicosities. Distal pulses palpable. DS: Data Data Completed and Pending Labs on day of discharge: Labs from last 24 hours 01/10/23 01/10/23 01/09/23 06:20 06:20 21:43 WBC 13.2 H RBC 4.35 Hgb 12.4 Hct 36.0 L MCV 82.8 MCH 28.5 MCHC 34.4 RDW 12.8 Plt Count 345 MPV 9.3 Sodium 131 L Potassium 3.6 Chloride 100 Carbon Dioxide 25 Anion Gap 6 L BUN 12 D Creatinine 0.60 L Estim Creat Clear Calc 81 Estimated GFR > 60 Glucose 104 Calcium 8.8 Total Bilirubin 1.0 AST 35 ALT 20 Alkaline Phosphatase 90 Troponin I 0.074 H* Total Protein 7.0 Albumin 3.8 01/09/23 01/09/23 18:41 15:53 WBC RBC Hgb Hct MCV MCH MCHC RDW Plt Count MPV Sodium Potassium Chloride Carbon Dioxide Anion Gap BUN Creatinine Estim Creat Clear Calc Estimated GFR Glucose Calcium Total Bilirubin AST ALT Alkaline Phosphatase Troponin I 0.090 H* 0.105 H* Total Protein Albumin Discharge Plan Discharge Attending physician on discharge: Robert Meza Consulting providers: Juan Prasad ; Luli Peng Discharging Clinician: Sveta Rees Anticipated Discharge Date/Time: 01/10/23 15:18 Patient Disposition: Home Health Service Activity: march shower Diet: as tolerated Wound Care Instructions: follow printed instructions Discharge Instructions: Care Coordination: Patient to have [facility] for PT/OT eval and treat, and fpc. They will contact you to schedule their first visit and can be reached at [phone] if you have any questions. Orthopedic instructions: Follow green instruction sheets. Keep dressing intact unless saturated. If it becomes saturated an
[2023-01-10] MEDS: RIVAROXABAN 10 MG TABLET PO (17:50)
[2023-01-10 20:45] LABS: Osmolality, Urine 549 mOsm/kg (50-1200)
== END 2023-01-10 18:00 | disposition home health service (06) ==
LOC: ANHSURGERY 11:49 → ANH3MED 11:49
PROVIDERS: Internal Medicine Critical Care Medicine; Physician Assistant; Physician Assistant Surgical; Admitting Provider Orthopaedic Surgery; PCP Family Medicine; Visit Provider Orthopaedic Surgery
PROC: (CPT 27130; principal; 2023-01-07 07:30)
DX: M16.11 Unilateral primary osteoarthritis, right hip (principal); R11.2 Nausea with vomiting, unspecified; E66.01 Morbid (severe) obesity due to excess calories; Z68.36 Body mass index [BMI] 36.0-36.9, adult; E87.6 Hypokalemia; E87.1 Hypo-osmolality and hyponatremia; I10 Essential (primary) hypertension; G47.33 Obstructive sleep apnea (adult) (pediatric); Z99.89 Dependence on other enabling machines and devices; E78.2 Mixed hyperlipidemia; R77.8 Other specified abnormalities of plasma proteins
CPT/HCPCS: 27130; 36415; 71045; 73502; 80048; 80053; 82570; 83735; 83930; 83935; 84132; 84300; 84443; 84484; 85025; 85027; 86850; 86900; 86901; 93005; 97110; 97116; 97161; 97165; 97530; 97535; A9270; C1776; G0378; G0379; J0131; J0171; J0690; J1100; J1170; J1630; J1885; J2270; J2405; J2550; J2704; J2795; J3010; J3480; J7030; J7040; J7120

== ENCOUNTER 2023-09-23 09:01 | Outpatient (CLI) | payer MEDICARE, SELFPAY ==
[2023-09-23 18:39] LABS: Alanine Aminotransferase 19 U/L (6-35); Albumin Level 4.3 g/dL (3.5-5.1); Alkaline Phosphatase 92 U/L (38-126); Anion Gap 4 mmol/L (8-16); Aspartate Amino Transferase 39 U/L (14-36); Bilirubin,Total 0.9 mg/dL (0.2-1.3); Blood Urea Nitrogen 12 mg/dL (7-17); Calcium 9.3 mg/dL (8.4-10.2); Carbon Dioxide 30 mmol/L (22-30); Chloride 104 mmol/L (98-107); Cholesterol 185 mg/dL (0-200); Estimated Glomerular Filt Rate > 60; Glucose 87 mg/dL (65-110); HDL Direct 54 mg/dL; Potassium 4.2 mmol/L (3.4-5.0); Sodium 138 mmol/L (137-145); Triglycerides 122 mg/dL (<150); Uric Acid 3.2 mg/dL (2.5-7.5)
[2023-09-23 18:46] LABS: Rheumatoid Factor < 12.0 IU/ML (<12)
[2023-09-23 18:50] LABS: LDL Cholesterol Direct 89 mg/dL
[2023-09-23 19:10] LABS: Basophils Absolute Auto 0.1 K/mm3 (0.0-0.1); Basophils Percent Auto 1.1 % (0.2-1.2); Eosinophils Absolute Auto 0.3 K/mm3 (0-0.3); Eosinophils Percent Auto 3.9 % (0-4.4); Hematocrit 42.5 % (37.0-47.0); Hemoglobin 13.7 g/dL (12.0-15.0); Immature Granulocyte Absolute 0.02 K/mm3 (0.00-0.031); Immature Granulocyte Percent A 0.3 % (0-0.5); Lymphocytes Absolute Auto 1.89 K/mm3 (0.9-3.2); Lymphocytes Percent Auto 29.7 % (18.3-44.2); Mean Corpuscular HGB Conc 32.2 g/dl (32-36); Mean Corpuscular Hemoglobin 29.4 pg (26-34); Mean Corpuscular Volume 91.2 fl (80-100); Mean Platelet Volume 9.4 fl (7.4-10.4); Monocytes Absolute Auto 0.5 K/mm3 (0.1-0.6); Monocytes Percent Auto 7.1 % (2.6-8.5); Neutrophils Absolute Auto 3.7 K/mm3 (1.3-6.7); Neutrophils Percent Auto 57.9 % (45.5-73.1); Platelet Count Result 334 k/mm3 (150-375); Red Blood Count 4.66 M/mm3 (4.2-5.4); Red Cell Distribution Width 13.2 % (11.5-14.5); White Blood Count 6.4 K/mm3 (4.5-10.0)
[2023-09-23 20:09] LABS: Erythrocyte Sedimentation Rate 15 mm/hr (0-20)
[2023-09-28 09:37] LABS: ANA Cascade Screen Negative (Negative)
== END 2023-09-23 09:02 | disposition home or self-care (01) ==
PROVIDERS: PCP Family Medicine; Visit Provider Physician Assistant
DX: E78.2 Mixed hyperlipidemia (principal); I10 Essential (primary) hypertension; M25.50 Pain in unspecified joint
CPT/HCPCS: 36415; 80053; 80061; 84443; 84550; 85025; 85652; 86038; 86430

== ENCOUNTER 2024-06-30 08:33 | Outpatient (CLI) | payer MEDICARE, SELFPAY ==
[2024-06-30 12:37] LABS: Basophils Absolute Auto 0.1 K/mm3 (0.0-0.1); Eosinophils Absolute Auto 0.3 K/mm3 (0-0.3); Eosinophils Percent Auto 3.8 % (0-4.4); Hematocrit 41.7 % (37.0-47.0); Hemoglobin 13.4 g/dL (12.0-15.0); Immature Granulocyte Absolute 0.01 K/mm3 (0.00-0.031); Immature Granulocyte Percent A 0.1 % (0-0.5); Lymphocytes Absolute Auto 1.96 K/mm3 (0.9-3.2); Lymphocytes Percent Auto 28.4 % (18.3-44.2); Mean Corpuscular HGB Conc 32.1 g/dl (32-36); Mean Corpuscular Hemoglobin 30.3 pg (26-34); Mean Corpuscular Volume 94.3 fl (80-100); Mean Platelet Volume 9.6 fl (7.4-10.4); Monocytes Absolute Auto 0.6 K/mm3 (0.1-0.6); Neutrophils Percent Auto 57.7 % (45.5-73.1); Platelet Count Result 343 k/mm3 (150-375); Red Blood Count 4.42 M/mm3 (4.2-5.4); Red Cell Distribution Width 13.3 % (11.5-14.5); White Blood Count 6.9 K/mm3 (4.5-10.0)
[2024-06-30 13:14] LABS: Alanine Aminotransferase 24 U/L (6-35); Albumin Level 4.1 g/dL (3.5-5.1); Alkaline Phosphatase 85 U/L (38-126); Anion Gap 9 mmol/L (4-12); Aspartate Amino Transferase 59 U/L (14-36); Bilirubin,Total 0.4 mg/dL (0.2-1.3); Blood Urea Nitrogen 15 mg/dL (7-17); Calcium 9.4 mg/dL (8.4-10.2); Carbon Dioxide 28 mmol/L (22-30); Chloride 101 mmol/L (98-107); Cholesterol 165 mg/dL (0-200); Estimated Glomerular Filt Rate > 60; Glucose 89 mg/dL (65-110); HDL Direct 51 mg/dL; Potassium 4.4 mmol/L (3.4-5.0); Sodium 138 mmol/L (137-145); Triglycerides 125 mg/dL (<150)
[2024-06-30 13:25] LABS: LDL Cholesterol Direct 81 mg/dL
[2024-06-30 16:02] LABS: Hemoglobin A1C 5.7 % (<5.7)
== END 2024-06-30 08:34 | disposition home or self-care (01) ==
PROVIDERS: PCP Family Medicine; Visit Provider Family Medicine
DX: I48.0 Paroxysmal atrial fibrillation (principal); R73.01 Impaired fasting glucose; I10 Essential (primary) hypertension
CPT/HCPCS: 36415; 80053; 80061; 83036; 84443; 85025

== ENCOUNTER 2025-03-22 13:24 | Outpatient (CLI) | payer MEDICARE, SELFPAY ==
--- NOTE | ~2025-03-22 | MR_ITS ---
MRI of the cervical spine Clinical History: Cervicalgia Technique: Axial T2-weighted and gradient images, and sagittal T1-weighted, T2-weighted, and STIR jeanmarie ges were acquired. Findings: There is mild reversal normal cervical lordosis. There is 2 mm anterolisthesis of C4-C5. Th ere is 3 mm retrolisthesis of C5 over C6. There is 3 mm retrolisthesis of C6 over C7. No suspicious b one marrow signal abnormality seen. There is severe degenerative change at the articulation of the od ontoid process with the anterior arch of C1. At C2-C3, there is no disc bulge or herniation. No spinal canal stenosis, cord compression or neural foraminal narrowing. There is left facet arthropathy. At C3-C4, there is no disc bulge or herniation. There is bilateral facet arthropathy with probable mi ld bilateral neural foraminal narrowing. No canal stenosis or cord compression. At C4-C5, there is no disc bulge or herniation. There is right facet arthropathy. No definite canal s tenosis, cord compression, or neural foraminal narrowing. At C5-C6, there is severe degenerative disc narrowing. There is minimal disc osteophyte complex. No c anal stenosis or cord compression. There is bilateral neural foraminal narrowing with bilateral facet arthropathy, left worse than right. At C6-C7, there is severe degenerative disc narrowing. There is mild canal stenosis without carmen cor d compression. There is severe bilateral neural foraminal narrowing. No abnormal signal seen in the spinal cord. Paravertebral soft tissues are unremarkable. Impression: Moderate degenerative spondylosis overall, with multiple grade 1 listheses and reversal normal cervic al lordosis. Please see details above. Reviewed, dictated and finalized at [facility]. Impression: Moderate degenerative spondylosis overall, with multiple grade 1 listheses and reversal normal cervical lordosis. Please see details above.
--- NOTE | ~2025-03-22 | MR_ITS ---
MRI of the lumbar spine Clinical History: Back pain Technique: Axial T2-weighted images, and sagittal T1-weighted, T2-weighted, and T2 fat-sat images wer e acquired. Findings: No acute fracture seen. There are grade 1 retrolisthesis of L1 over L2, of L2 over L3, and of L3 over L4. No bone marrow signal abnormality evident. At L1-L2, there is moderate to advanced degenerative stranding. There is mild disc bulge with moderat e facet arthropathy. No carmen central canal stenosis. There is moderate bilateral neural foraminal na rrowing. At L2-L3, there is advanced degenerative disc. There is mild disc bulge with moderate to advanced fac et arthropathy. There is moderate central canal stenosis/thecal sac compression. There is severe left neural foraminal narrowing and moderate right neural foraminal narrowing. At L3-L4, there is severe degenerative tearing. There is disc bulge with severe facet arthropathy. Th ere is moderate to severe spinal canal stenosis/thecal sac compression. There is severe left neural f oraminal, otherwise, and moderate to severe right neural foraminal carotids. At L4-L5, there is diffuse disc bulge with severe facet arthropathy. There is severe spinal canal carla nosis/thecal sac compression. There is severe right neural foraminal narrowing. There is moderate lef t neural foraminal narrowing. At L5-S1, there is advanced degenerative disc narrowing. There is mild disc bulge with advanced facet arthropathy. There is minimal central canal stenosis. There is severe right neural foraminal narrowi ng, and moderate to severe left neural foraminal narrowing. Paravertebral soft tissues are unremarkable. Impression: Severe degenerative spondylosis throughout the lumbar spine, as detailed above. Grade 1 retrolisthesis of L1 over L2, L2 over L3, and of L3 over L4. Reviewed, dictated and finalized at location M. Impression: Severe degenerative spondylosis throughout the lumbar spine, as detailed above. Grade 1 retrolisthesis of L1 over L2, L2 over L3, and of L3 over L4.
== END 2025-03-22 13:25 | disposition home or self-care (01) ==
LOC: GOSHIMG 13:24
PROVIDERS: PCP Family Medicine; Visit Provider Anesthesiology Pain Medicine
DX: M48.061 Spinal stenosis, lumbar region without neurogenic claudication (principal); M47.812 Spondylosis without myelopathy or radiculopathy, cervical region; M50.30 Other cervical disc degeneration, unspecified cervical region
CPT/HCPCS: 72141; 72148

== ENCOUNTER 2025-05-20 10:05 | Emergency (ER) | payer MEDICARE, SELFPAY ==
--- NOTE | ~2025-05-20 | XR_ITS ---
XR chest 1V portable Ordering provider: Le Camejo MD History: 70 years Female with . fall . Comparison: January 09, 2023 FINDINGS: MEDIASTINUM: The cardiac silhouette is not enlarged. LUNGS: No infiltrates, effusions or pneumothorax. OTHER: No free air under the diaphragm. IMPRESSION: No acute cardiopulmonary pathology. Reviewed, dictated and finalized at location A.
--- NOTE | ~2025-05-20 | XR_ITS ---
XR shoulder LT min 2V Ordering provider: Le Camejo MD History: . fall . Comparison: May 20, 2025 FINDINGS: BONES: Comminuted Fracture in the proximal metaphysis of the humerus is noted JOINT SPACES: Left shoulder arthroplasty is noted. SOFT TISSUES: Normal. IMPRESSION: Comminuted fracture of the proximal metaphysis of the left humerus involving the area around the arth roplasty. Reviewed, dictated and finalized at location A. IMPRESSION: Comminuted fracture of the proximal metaphysis of the left humerus involving th e area around the arthroplasty.
--- NOTE | ~2025-05-20 | XR_ITS ---
XR hip LT 2V w AP pelvis Ordering provider: Le Camejo MD History: . fall, hip pain . Comparison: None. FINDINGS: BONES: Possible lucency seen in the left intertrochanteric area. CT evaluation is advised. Otherwise, No definite acute fracture or dislocation. HIP JOINT SPACES: Right hip arthroplasty. Mild to moderate osteoarthritic changes of the left hip. SACROILIAC JOINT SPACES/LUMBAR SPINE: The sacroiliac joint spaces are normal. Mild degenerative ramires es of the visualized lower lumbar spine. Pubic symphysis: Pubic symphysitis. SOFT TISSUES: Normal. IMPRESSION: Lucency seen in the left intertrochanteric area which may be artifactual. CT evaluation advised. Othe rwise, No definite acute osseous abnormality pelvis and left hip. Reviewed, dictated and finalized at location A. IMPRESSION: Lucency seen in the left intertrochanteric area which may be artifactual. CT ev aluation advised. Otherwise, No definite acute osseous abnormality pelvis and l eft hip.
--- NOTE | ~2025-05-20 | CT_ITS ---
CT pelvis wo con Ordering provider: Le Camejo MD History: . fall from ladder, left hip pain, abnormal xray . Comparison: None. Technique: CT pelvis without oral and IV contrast. . Automated exposure control and iterative recons truction technique were employed. The dose-length product was 784.87 mGy-cm. Findings: BONES: Fracture involving the anterior column of the left acetabulum is seen extending to the superio r pubic ramus. No other definite fractures seen.. Age appropriate degenerative changes of the visuali zed lower lumbar spine. Right hip arthroplasty. Dextroscoliosis. Bilateral sacroiliitis. SUPERFICIAL SOFT TISSUES: Normal. PELVIC ORGANS: The bladder is normal. VISUALIZED BOWEL AND MESENTERY: Normal. No free air or free fluid. No lymphadenopathy. RETROPERITONEUM: Mild atheromatous disease. IMPRESSION: Undisplaced Fracture of the anterior column on the left acetabulum. No other fractures seen. Reviewed, dictated and finalized at location A.
--- NOTE | ~2025-05-20 | CT_ITS ---
EXAM: CT brain wo con, CT cervical spine wo con - 05/20/2025 12:30 CDT HISTORY: 70 years old Female with fall, chronic anticoagulation COMPARISON: None available. PROCEDURE: CT of the head and cervical spine without contrast. Axial, sagittal and coronal reformat katrina planes were evaluated. Automatic exposure control was used for this study. FINDINGS: CT HEAD: BRAIN PARENCHYMA: No acute hemorrhage. No mass effect or herniation. Stoner-white matter differentiatio n is maintained. Mild chronic volume loss. Scattered hypodensities in subcortical and periventricular white matter, likely representing chronic microvascular ischemic changes in this age group. Atherosc lerotic calcification of the intracranial vessels is noted. VENTRICLES/ EXTRA-AXIAL SPACES: No hydrocephalus or extra-axial fluid collection. EXTRACRANIAL STRUCTURES: No calvarial fracture. CT CERVICAL SPINE: No acute fracture or subluxation. Straightening of cervical lordosis, likely positional or may be rel ated to muscle spasm. Multilevel degenerative changes of the cervical spine include varying degrees o f disk space narrowing, endplate osteophytosis as well as facet and uncal arthropathy. Prevertebral s oft tissues are within normal limits. Visualized lung apices are clear. IMPRESSION: 1. No evidence for acute intracranial hemorrhage or calvarial fracture. 2. No evidence for cervical spine fracture or traumatic subluxation. 3. Multilevel degenerative changes of the cervical spine. Reviewed, dictated and finalized at location A. IMPRESSION: 1. No evidence for acute intracranial hemorrhage or calvarial fracture. 2. No evidence for cervical spine fracture or traumatic subluxation. 3. Multilevel degenerative changes of the cervical spine.
--- NOTE | ~2025-05-20 | XR_ITS ---
XR humerus LT Ordering provider: Le Camejo MD History: . fall . Comparison: None. FINDINGS: BONES: Comminuted fracture of the proximal metaphysis of the left humerus involving the area around t he arthroplasty. JOINT SPACES: Left shoulder arthroplasty. SOFT TISSUES: Soft tissue swelling is seen in the area of the left shoulder and proximal humerus. IMPRESSION: Comminuted fracture of the proximal metaphysis of the left humerus involving the area around the arth roplasty. Reviewed, dictated and finalized at location A. IMPRESSION: Comminuted fracture of the proximal metaphysis of the left humerus involving th e area around the arthroplasty.
[2025-05-20 10:02] VITALS: BP 162/87; PULSE 60; RESP 13; TEMP 36.4; O2SAT 100
[2025-05-20 12:07] VITALS: BP 136/82; PULSE 58; RESP 18; O2SAT 97
--- NOTE | 2025-05-20 12:10 | ECG_ITS ---
Test Date: 2025-05-20 13:58:52 Measurements Intervals [place] Rate: 56 P: 44 ME: 170 QRS: -48 QRSD: 114 T: 6 QT: 497 QTc: 481 Interpretive Statements SINUS BRADYCARDIA VOLTAGE CRITERIA FOR LVH LEFT ANTERIOR FASCICULAR BLOCK BORDERLINE T WAVE ABNORMALITY- INFERIOR LEADS ABNORMAL ECG No previous ECG available for comparison Electronically Signed On 05-20-2025 14:17:57 CDT by Saravanan Conti D.O.
[2025-05-20] MEDS: ONDANSETRON INJ 4 MG/2 ML VIAL IV PUSH ×2 (12:18→13:53)
[2025-05-20] MEDS: HYDROmorphone HCL INJ (*CRX) 2 MG/ML VIAL 0.5 MG IV PUSH ×2 (12:18→15:23)
--- NOTE | 2025-05-20 12:35 | ED_ITS ---
HPI - Fall General Chief Complaint: Fall Stated Complaint: fall Time Seen by Provider: 05/20/25 11:13 Source: patient, EMS, RN notes reviewed and old records reviewed Mode of arrival: EMS Limitations: no limitations History of Present Illness HPI Narrative: This is a 70 year old female with history of chronic pain, afib, chronic anticoagulation who presents for evaluation of left shoulder and left hip pain s/p fall off ladder. She states that she had place a tall ladder on a tree. She states that it tilted over and she fell off of it 4 ft from ground. She ladder on his left shoulder and left hip and she fell onto ground. She denies hitting her head or LOC. She reports left neck pain and she was placed in c collar by EMS. She was given morphine 8 mg IV. She denies rib pain, chest pain or shortness of breath. She takes xarelto. Unable to ambulate after fall due to pain in left arm and left hip MD complaint: fall Onset (ago): minute(s) Fall from: from height (distance) Place fall occurred: home Loss of consciousness: none Prolonged down time: no Symptoms prior to fall: none Related Data Home Medications ?Medication ?Instructions ?Recorded ?Confirmed ?Last Taken ?Type cholecalciferol (vitamin D3) 50 50 mcg PO DAILY 09/17/22 03/02/25 12/31/22 History mcg (2,000 unit) capsule acetaminophen 500 mg oral powder 500 mg PO QID PRN 08/28/23 03/02/25 Unknown History packet (Tylenol Extra Strength) Allergies Allergy/AdvReac Type Severity Reaction Status Date / Time No Known Allergies Allergy Verified 05/20/25 10:21 [facility] Past Medical History Medical History Cervical spondylosis Troponin level elevated Postoperative nausea and vomiting Primary osteoarthritis of right hip Primary osteoarthritis Obstructive sleep apnea on CPAP Biliary colic Atypical chest pain Arthritis of right hip Trochanteric bursitis, right hip Left knee pain Right shoulder pain Hx of rheumatic fever possible rheumatic fever as a teenager, no sequelae Osteoarthritis, multiple sites Paroxysmal atrial fibrillation Asthma Atherosclerotic heart disease of [place] coronary artery with other forms of angina pectoris Normal cardiac catheterization in April 2020. Benign and innocent cardiac murmurs Normal bowel sound echo in April 2020. Chronic low back pain Secondary to spinal stenosis. Essential hypertension Major depressive disorder, recurrent, moderate Mild intermittent asthma, uncomplicated Mixed hyperlipidemia History of menopause Surgical History Surgical History History of bilateral carpal tunnel release (1998) History of colonoscopy with polypectomy History of hand surgery Per patient report she has had 7 hand surgeries. 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 LVH with good systolic function. Status post proximal row carpectomy of wrist (2008) Family History Family History Father Family history of primary malignant neoplasm of liver Family history of cardiovascular disease Family history of lung cancer Emphysema lung Family history of congenital heart disease Hypertension Pneumonia cause of , age 55 Acute myocardial infarction had heart disease, patient is unsure of what type. Grandparent Diabetes mellitus Mother Skin cancer Hypertension Cerebrovascular accident Sibling Hypertension Social History Social History Social History: Surrogate medical decision maker: Angela Melgar, . Code status: Full code. Smoking status: Never smoker Second hand tobacco smoke exposure: No Alcohol intake: current Drinks per week: 2 Substance use: current Substance use type: marijuana Last use: today Do You Feel Safe in your Home?: Yes Lack of Transportation: No Lack of Food: Never True Current Housing: I Have Housing Concerned About Future Housing: No Difficulty Paying Gas/Electric Bills: No Difficulty Paying for Meds: No Currently Unemployed: No Education: Bachelor's Degree Difficulty w/ Childcare or Family Care: No Living arrangements: with family Additional living arrangements comments: Lives with spouse in [place]. Helps care for her 98-year-old mother. Occupation/Education: retired Additional occupation/education comments: Retired. 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 Spiritual care concerns: No Exam 2 Const: General: no acute distress and alert Nutritional Appearance: well nourished and obese Orientation/consciousness: patient oriented x3 HENMT: Head: normal to inspection Face and sinus: normal facial exam M outh: Yes Normal oral and palatal mucosa present, Yes lip normal and Yes moist mucous membranes Eyes: Pupils: Equal, round and reactive pupils present EOM: EOMs intact bilaterally Neck: Other: in collar Chest: Chest palpation & inspection: normal inspection of the chest and no tenderness Resp: Effort & Inspection: normal respiratory effort Auscultation: clear to auscultation bilaterally Cardio: Rate: regular rate Rhythm: regular rhythm Heart sounds: no murmurs GI: GI Palp: Yes Soft to palpation, No Tenderness to palpation present (GI) and No Guarding due to palpation present (GI) Auscultation: normal bowel sounds Neuro: General: patient oriented x3 Extrem: Other: left shoulder swelling, unable to range at shoulder. Pain with ROM at left hip, no hip deformity Psych: Mental Status: mental status grossly normal Affect: normal affect Attitude: cooperative Course Course Emergency Course: PAtient presents for evaluation of fall off ladder [address] brain and CT cervical spine ordered due to advanced age, fall and chronic anticoagulation. xrays of left shoulder, left hip and chest order. Labs ordered. I also ordered Dilaudid 0.5 mg IV with 4 mg Zofran IV Reevaluation(s) Reevaluation #1: I have discussed with patient that she has been found to have left acetabulum fracture and left periarthroplasty proximal humerus fracture and it is recommended for transfer. She would like me to try transfer to [facility] first. Patient pain is increasing so will give more pain medication Date: 05/20/25 Time: 15:07 Consultations Consultation #1: I Spoke with Dr. Justino thomas alterations supervisor. He reviewed patient's imaging and he recommends to try to talk to Dr. Meza or transfer to higher level of care. Dr. meza [place] of the [place] this time. Date: 05/20/25 Time: 14:15 Vital Signs Vital signs: Vital Signs Temperature 97.5 F L 05/20/25 10:02 Pulse Rate 60 05/20/25 10:02 Respiratory Rate 13 05/20/25 10:02 Blood Pressure 162/87 H 05/20/25 10:02 Pulse Oximetry 100 05/20/25 10:02 Oxygen Delivery Room Air 05/20/25 10:02 Temperature 97.8 F 05/20/25 16:00 Pulse Rate 63 05/20/25 16:00 Respiratory Rate 14 05/20/25 16:00 Blood Pressure 138/87 05/20/25 16:00 Pulse Oximetry 98 05/20/25 16:00 Oxygen Delivery Room Air 05/20/25 10:02 Transfer Transfered to: [facility] Accepting physician: I spoke with Dr. Nielsen at [facility] who accepts patient MDM - Fall Differential Diagnosis Differential diagnosis: Likely dislocation of shoulder region and other (left hip fracture, hemorrhage, anemia, rib fractures) Medical Records Attestation: I reviewed the patient's medical records. Lab Data Attestation: I reviewed the patient's lab results. 05/20/25 14:51 05/20/25 14:51 Labs: Lab Results 05/20/25 05/20/25 Range/Units 14:51 14:56 WBC 15.6 H (4.5-10.0) K/mm3 RBC 4.05 L (4.2-5.4) M/mm3 Hgb 11.8 L (12.0-15.0) g/dL Hct 36.7 L (37.0-47.0) % MCV 90.6 (80-100) fl MCH 29.1 (26-34) pg MCHC 32.2 (32-36) g/dl RDW 12.4 (11.5-14.5) % Plt Count 253 (150-375) k/mm3 MPV 9.3 (7.4-10.4) fl Immature Gran % (Auto) 0.7 H (0-0.5) % Neut % (Auto) 84.5 H (45.5-73.1) % Lymph % (Auto) 7.5 L (18.3-44.2) % [place] % (Auto) 6.3 (2.6-8.5) % Eos % (Auto) 0.4 (0-4.4) % Baso % (Auto) 0.6 (0.2-1.2) % Lymph # (Auto) 1.18 (0.9-3.2) K/mm3 [place] # (Auto) 1.0 H (0.1-0.6) K/mm3 Eos # (Auto) 0.1 (0-0.3) K/mm3 Baso # (Auto) 0.1 (0.0-0.1) K/mm3 Abs Immat Gran (auto) 0.11 H (0.00-0.031) K/mm3 Absolute Neuts (auto) 13.2 H (1.3-6.7) K/mm3 Absolute Nucleated RBC 0.000 (0.0-0.012) K/mm3 Nucleated RBC % 0.0 (0.0-0.2) % PT 16.8 H (11.1-14.7) Seconds INR 1.4 APTT 30.4 (22.3-36.8) Seconds Sodium 140 (137-145) mmol/L Potassium 3.7 (3.4-5.0) mmol/L Chloride 107 (98-107) mmol/L Carbon Dioxide 23 (22-30) mmol/L Anion Gap 10 (4-12) mmol/L BUN 16 (7-17) mg/dL Creatinine 0.64 L (0.7-1.0) mg/dL Estim Creat Clear Calc 75 ml/min Estimated GFR > 60 (59 - ) Glucose 111 H (65-110) mg/dL Calcium 9.3 (8.4-10.2) mg/dL Total Bilirubin 1.0 (0.2-1.3) mg/dL AST 38 H (14-36) U/L ALT 24 (6-35) U/L Alkaline Phosphatase 93 (38-126) U/L Total Protein 7.2 (6.3-8.2) g/dL Albumin 4.2 (3.5-5.1) g/dL Imaging Data Radiologist's impression: ITS Impressions Cervical Spine CT 05/20/25 12:42 IMPRESSION: 1. No evidence for acute intracranial hemorrhage or calvarial fracture. 2. No evidence for cervical spine fracture or traumatic subluxation. 3. Multilevel degenerative changes of the cervical spine. Head CT 05/20/25 12:42 IMPRESSION: 1. No evidence for acute intracranial hemorrhage or calvarial fracture. 2. No evidence for cervical spine fracture or traumatic subluxation. 3. Multilevel degenerative changes of the cervical spine. Humerus X-Ray 05/20/25 13:11 IMPRESSION: Comminuted fracture of the proximal metaphysis of the left humerus involving the area around the arthroplasty. Shoulder X-Ray 05/20/25 13:14 IMPRESSION: Comminuted fracture of the proximal metaphysis of the left humerus involving the area around the arthroplasty. Hip/Pelvis X-Ray 05/20/25 13:17 IMPRESSION: Lucency seen in the left intertrochanteric area which may be artifactual. CT evaluation advised. Otherwise, No definite acute osseous abnormality pelvis and left hip. Chest X-Ray 05/20/25 13:21 IMPRESSION: No acute cardiopulmonary pathology. Pelvis CT 05/20/25 13:51 IMPRESSION: Undisplaced Fracture of the anterior column on the left acetabulum. No other fractures seen. Critical Care Time Critical Care Time Critical Care Time: Yes Total Critical Care Time: 45 Discharge Plan Discharge Clinical Impression: Periprosthetic fracture around internal prosthetic left shoulder joint Qualifiers: Encounter type: initial encounter Qualified Code(s): M97.32XA - Periprosthetic fracture around internal prosthetic left shoulder joint, initial encounter Fracture of proximal end of left humerus Qualifiers: Encounter type: initial encounter Fracture type: closed Fracture alignment: d isplaced Closed fracture of left acetabulum Qualifiers: Encounter type: initial encounter Sublocation of acetabulum: anterior wall F racture alignment: nondisplaced Qualified Code(s): S32.415A - Nondisplaced fracture of anterior wall of left acetabulum, initial encounter for closed fracture Patient Disposition: Acute Care Hospital Condition: Stable Patient Language: Irish Prescriptions: No Action cholecalciferol (vitamin D3) 50 mcg (2,000 unit) capsule 50 mcg PO DAILY Patient Comments: TAKES Q PM alprazolam 0.5 mg tablet See Rx Instructions PO .COMPLEX PRN (Reason: anxiety) Qty: 20 0RF Rx Instructions: 1-2 orally twice a day PRN Tylenol Extra Strength 500 mg powder in packet 500 mg PO QID PRN magnesium oxide 400 mg (241.3 mg magnesium) Tablet 400 mg PO QAM Qty: 30 0RF Patient Comments: TAKES Q PM (DME) cpap supplies See Rx Instructions .Route .MEDSUPPLY Qty: 1 0RF Rx Instructions: As directed atorvastatin 40 mg tablet See Rx Instructions .ROUTE .COMPLEX Qty: 90 2RF Dose Instruction: Take 1 Tablet (40 mg) by mouth daily. Rx Instructions: Take 1 Tablet (40 mg) by mouth daily. Xarelto 20 mg tablet See Rx Instructions .ROUTE .COMPLEX Qty: 90 2RF Dose Instruction: Take 1 Tablet (20 mg) by mouth daily with evening meal. Rx Instructions: Take 1 Tablet (20 mg) by mouth daily with evening meal. metoprolol succinate 100 mg tablet extended release 24 hr See Rx Instructions .ROUTE .COMPLEX Qty: 90 2RF Dose Instruction: TAKE ONE TABLET BY MOUTH ONCE DAILY Rx Instructions: TAKE ONE TABLET BY MOUTH ONCE DAILY celecoxib 200 mg capsule See Rx Instructions .ROUTE .COMPLEX Qty: 90 1RF Dose Instruction: Take 1 Capsule (200 mg) by mouth daily. Rx Instructions: Take 1 Capsule (200 mg) by mouth daily. bupropion HCl 150 mg tablet extended release 24 hr 150 mg PO QAM Qty: 90 1RF lisinopril 10 mg tablet 10 mg PO DAILY Qty: 90 1RF pantoprazole 20 mg tablet,delayed release (DR/EC) 20 mg PO QAM Qty: 90 0RF buprenorphine 10 mcg/hour patch weekly 1 patch transdermal Q7D 28 Days Qty: 4 0RF Rx Instructions: apply 1 patch to clean, bare, intact skin of the upper body. Remove and replace every 7 days, rotating site with each placement. Call clinic when placing last patch for refill Follow-up/Referrals: Jose Younger MD [Primary Care Provider] -
[2025-05-20 13:22] VITALS: BP 152/86; PULSE 59; RESP 18; O2SAT 93
--- NOTE | 2025-05-20 13:50 | PC.NURSE ---
1330-Dr Camejo made aware of patient vomiting and need for c-collar removal once CT of neck cleared. Patient cleaned up, linens changed.
[2025-05-20 15:00] VITALS: BP 154/91; PULSE 62; RESP 15; O2SAT 100
[2025-05-20 15:04] LABS: Basophils Absolute Auto 0.1 K/mm3 (0.0-0.1); Basophils Percent Auto 0.6 % (0.2-1.2); Eosinophils Absolute Auto 0.1 K/mm3 (0-0.3); Eosinophils Percent Auto 0.4 % (0-4.4); Hematocrit 36.7 % (37.0-47.0); Hemoglobin 11.8 g/dL (12.0-15.0); Immature Granulocyte Absolute 0.11 K/mm3 (0.00-0.031); Immature Granulocyte Percent A 0.7 % (0-0.5); Lymphocytes Absolute Auto 1.18 K/mm3 (0.9-3.2); Lymphocytes Percent Auto 7.5 % (18.3-44.2); Mean Corpuscular HGB Conc 32.2 g/dl (32-36); Mean Corpuscular Hemoglobin 29.1 pg (26-34); Mean Corpuscular Volume 90.6 fl (80-100); Mean Platelet Volume 9.3 fl (7.4-10.4); Monocytes Percent Auto 6.3 % (2.6-8.5); Neutrophils Absolute Auto 13.2 K/mm3 (1.3-6.7); Neutrophils Percent Auto 84.5 % (45.5-73.1); Platelet Count Result 253 k/mm3 (150-375); Red Blood Count 4.05 M/mm3 (4.2-5.4); Red Cell Distribution Width 12.4 % (11.5-14.5); White Blood Count 15.6 K/mm3 (4.5-10.0)
[2025-05-20 15:14] LABS: Alanine Aminotransferase 24 U/L (6-35); Albumin Level 4.2 g/dL (3.5-5.1); Alkaline Phosphatase 93 U/L (38-126); Anion Gap 10 mmol/L (4-12); Aspartate Amino Transferase 38 U/L (14-36); Blood Urea Nitrogen 16 mg/dL (7-17); Calcium 9.3 mg/dL (8.4-10.2); Carbon Dioxide 23 mmol/L (22-30); Chloride 107 mmol/L (98-107); Estimated CRCL calculation 75 ml/min; Estimated Glomerular Filt Rate > 60; Glucose 111 mg/dL (65-110); Potassium 3.7 mmol/L (3.4-5.0); Sodium 140 mmol/L (137-145); Total Protein 7.2 g/dL (6.3-8.2)
[2025-05-20 15:19] LABS: INR 1.4; Prothrombin Time 16.8 Seconds (11.1-14.7)
[2025-05-20 15:20] LABS: Partial Thromboplastin Time 30.4 Seconds (22.3-36.8)
[2025-05-20 15:36] VITALS: BP 138/86; PULSE 66; RESP 14; O2SAT 98
[2025-05-20 16:00] VITALS: BP 138/87; PULSE 63; RESP 14; TEMP 36.6; O2SAT 98
== END 2025-05-20 17:08 | disposition short-term general hospital (02) ==
PROVIDERS: Emergency Provider General Practice; PCP Family Medicine
DX: S49.092A Other physeal fracture of upper end of humerus, left arm, initial encounter for closed fracture (principal); M97.32XA Periprosthetic fracture around internal prosthetic left shoulder joint, initial encounter; S32.435A Nondisplaced fracture of anterior column [iliopubic] of left acetabulum, initial encounter for closed fracture; I48.0 Paroxysmal atrial fibrillation; M16.11 Unilateral primary osteoarthritis, right hip; G47.33 Obstructive sleep apnea (adult) (pediatric); I25.118 Atherosclerotic heart disease of native coronary artery with other forms of angina pectoris; I10 Essential (primary) hypertension; J45.20 Mild intermittent asthma, uncomplicated; E78.2 Mixed hyperlipidemia; F33.9 Major depressive disorder, recurrent, unspecified; Z96.653 Presence of artificial knee joint, bilateral; Z96.612 Presence of left artificial shoulder joint; Z96.611 Presence of right artificial shoulder joint; Z96.641 Presence of right artificial hip joint; Z86.0100 Personal history of colon polyps, unspecified; Z79.01 Long term (current) use of anticoagulants; Z79.899 Other long term (current) drug therapy; M47.812 Spondylosis without myelopathy or radiculopathy, cervical region; M48.02 Spinal stenosis, cervical region; I44.4 Left anterior fascicular block; R94.31 Abnormal electrocardiogram [ECG] [EKG]; W11.XXXA Fall on and from ladder, initial encounter; R00.1 Bradycardia, unspecified
CPT/HCPCS: 36415; 70450; 71045; 72125; 72192; 73030; 73060; 73502; 80053; 85025; 85610; 85730; 93005; 96374; 96375; 96376; 99285; J1171; J2405